=== PATIENT | male | born 1945 | race Caucasian/White ===

== ENCOUNTER → 2017-11-11 | Outpatient (CLI) | payer MEDICARE, OTHER ==
[~2017-11-11] MED LIST: BNZ10T PO; GLIP10TA13 PO; GLYB5TAB6 PO; INSU100V31 SQ; INSU100V5 SQ; INSU100V6 SQ; METF-380 PO; MULT-301 PO; OXYC-12 PO; PGLT30T PO
--- NOTE | 2017-11-11 08:20 | Diagnostic Imaging Report ---
EXAMINATION: Magnetic resonance imaging of the left shoulder without contrast. DATE: November 11, 2017. COMPARISON: None. INDICATION: 72-year-old male, left shoulder pain. TECHNIQUE: Magnetic Resonance Imaging sequences were performed of the shoulder without contrast. FINDINGS: ROTATOR CUFF, LIGAMENTS, TENDONS, AND MUSCLES: There is a massive rotator cuff tendon tear with full thickness and full width tears of the supraspinatus, infraspinatus, and subscapularis tendons. There is tendinopathy of the teres minor. There is severe fatty atrophy of the supraspinatus, infraspinatus, and subscapularis muscles. There is low-level edema within portions of the teres minor muscle which potentially could reflect low-grade muscle strain. LONG HEAD OF BICEPS: The long head of biceps tendon is not visualized in its intra-articular segment or within the bicipital groove. The proximal long head of biceps tendon is likely torn and retracted below the level of the bicipital groove. GLENOHUMERAL JOINT: The humeral head is superiorly subluxed and directly abuts the undersurface of the acromion with associated bone remodeling. There is irregularity of the length of the posterior labrum which is most likely torn. The anterior labrum is grossly intact. There is no identified paralabral cyst. There is mild glenohumeral cartilage thinning. There is a trace glenohumeral joint effusion. There is no prominent synovitis or identified intra-articular body. ACROMIOCLAVICULAR JOINT: The acromioclavicular joint is normally aligned. The coracoclavicular and coracoacromial ligaments are intact. There are mild acromioclavicular degenerative changes with a mildly bulbous lateral clavicle. There is a small acromioclavicular joint effusion. BONE: There is no os acromiale. There is no acute fracture, bone contusion, or evidence of osteonecrosis. There are subcortical cystic changes in the superior humeral head underlying the teres minor tendon insertion. BURSAE AND SOFT TISSUES: There is a small amount of fluid within the subacromial and subdeltoid bursa compatible with the full-thickness rotator cuff tendon tears, bursitis, and/or recent injection. IMPRESSION: 1. Massive rotator cuff tendon tear with full thickness and full width tears of supraspinatus, infraspinatus, and subscapularis. There is severe fatty atrophy of all 3 muscles. Teres minor tendinopathy with low level edema portions of the teres minor muscle which may potentially reflect low-grade muscle strain. 2. Mild acromioclavicular degenerative changes with mildly bulbous lateral clavicle. A small acromioclavicular joint effusion. 3. Superiorly subluxed humeral head directly abutting undersurface of the acromion with associated mild bone remodeling. Mild glenohumeral osteoarthritis with probable posterior labral tear. 4. No acute fracture, bone contusion, or evidence of osteonecrosis. Dictated by: Dictated on workstation # [id number]
== END ==
LOC: RAD 06:58
PROVIDERS: ATTEND Nurse Practitioner
DX: M75.122 Complete rotator cuff tear or rupture of left shoulder, not specified as traumatic (principal); M85.512 Aneurysmal bone cyst, left shoulder; M19.012 Primary osteoarthritis, left shoulder; S43.002A Unspecified subluxation of left shoulder joint, initial encounter
CPT/HCPCS: 73221

== ENCOUNTER 2019-01-23 06:29 | Outpatient (CLI) | payer MEDICARE, OTHER ==
[~2019-01-23] VITALS: Ht 177.8 cm; Wt 106.8 kg
[2019-01-23] MEDS ORDERED: METF-399 PO (10:56)
[2019-01-23] MEDS ORDERED: CHOL200059 PO (10:56)
[2019-01-23] MEDS ORDERED: BENA10TA9 PO (10:56)
[2019-01-23] MEDS ORDERED: PIOG30TA71 PO (10:56)
[2019-01-23] MEDS ORDERED: TEST100V3 IM (10:56)
[2019-01-23] MEDS ORDERED: UBID100C44 PO (10:56)
[2019-01-23] MEDS ORDERED: MULT-974 PO (10:56)
[2019-01-23] MEDS ORDERED: GBPN600T PO (10:56)
== END 2019-01-23 10:48 | disposition home or self-care (01) ==
LOC: PREOP 06:29
PROVIDERS: ATTEND Surgery
DX: Z01.818 Encounter for other preprocedural examination (principal)

== ENCOUNTER 2019-01-30 10:39 | Day surgery (SDC) | payer MEDICARE, OTHER ==
[~2019-01-30] VITALS: Ht 177.8 cm; Wt 106.8 kg
[2019-01-30] VITALS (7 sets, daily range): BP systolic 146–176; BP diastolic 67–104
[~2019-01-30 10:39] MED LIST changes: +BENA10TA9 PO; +CHOL200059 PO; +GBPN600T PO; +METF-399 PO; +MULT-974 PO; +PIOG30TA71 PO; +TEST100V3 IM; +UBID100C44 PO
[2019-01-30] MEDS ORDERED: LACTATED RINGERS 1,000 ML IV STA (10:47)
[2019-01-30] MEDS ORDERED: LACTATED RINGERS 1,000 ML IV ONE (10:48)
[2019-01-30] MEDS ORDERED: ceFAZolin 2 GM IV Premixed 50 ML IV ONE (11:00)
[2019-01-30] MEDS ORDERED: MIDAZOLAM 5 MG/5 ML (VERSED) VIAL IV PRN (11:00)
[2019-01-30] MEDS ORDERED: fentaNYL INJECTION 100 MCG/2 ML AMP IVP ONE (11:00)
[2019-01-30] MEDS ORDERED: PROPOFOL INJECTION 50 ML IV ONE ×2 (11:14→11:49)
[2019-01-30] MEDS ORDERED: MIDAZOLAM 2 MG/2 ML (VERSED) VIAL ONE (11:14)
[2019-01-30] MEDS ORDERED: nugenix (11:32)
--- NOTE | 2019-01-30 15:05 | Anesthesia-General Post-Op ---
MAC Patient Condition Mental Status/LOC: Same as Preop Cardiovascular: Satisfactory Nausea/Vomiting: Absent Respiratory: Satisfactory Pain: Controlled Complications: Absent Post Op Complications Complications None Follow Up Care/Instructions Patient Instructions None needed. Anesthesiology Discharge Order Discharge Order Patient is doing well, no complaints, stable vital signs, no apparent adverse anesthesia problems. No complications reported per nursing. ESTHELA TYLER CRNA Jan 30, 2019 15:05 POS
--- NOTE | 2019-01-30 20:21 | Progress Note-Post Operative ---
Post-Operative Progess Note Surgeon (s)/Forest Engineer (s) Surgeon AIDE MAHONEY DO Forest Engineer: na Pre-Operative Diagnosis history polyps Post-Operative Diagnosis hepatic flexure polyp Procedure & Operative Findings Date of Procedure 01/30/19 Procedure Performed/Findings colonoscopy c hot bx polypectomy and carlito inking. Anesthesia Type per accounting/finance tutor Estimated Blood Loss Estimated blood loss (mL): none Specimens/Packing Specimens Removed hepatic flexure polyp AIDE MAHONEY DO Jan 30, 2019 20:21 POS
--- NOTE | 2019-01-31 04:46 | OPERATIVE REPORT ---
DATE OF SERVICE: 01/30/2019 PREOPERATIVE DIAGNOSIS: History of polyps. POSTOPERATIVE DIAGNOSIS: Hepatic flexure polyp. PROCEDURE: Colonoscopy with hot biopsy polypectomy and Makenna inking of the hepatic flexure polyp. SURGEON: Aide Velasco DO ANESTHESIA: Per LAB DIRECTOR. ESTIMATED BLOOD LOSS: None. COMPLICATIONS: None. INDICATIONS: The patient is a 73-year-old male with history of polyps. He understands risks and benefits of procedure and wished to proceed with procedure. Consent was signed in the chart. DESCRIPTION OF PROCEDURE: The patient was taken to the endoscopy suite, placed in left lateral recumbent position. Timeout was performed. Digital rectal exam was performed. There were no palpable polyps, masses or ulcerations. Scope was inserted in the rectum, advanced all the way to cecum with minimal difficulty. Prep was adequate. There were no polyps, masses or ulcerations within the cecum. The scope was then continuously retracted back. No polyps, masses or ulcerations within the ascending colon. At the hepatic flexure, a larger polyp was present, which hot biopsies were obtained and also fulgurated. The scope was then slowly retracted back just distal to this area, the Makenna inking in one spot. Therefore, a further tattoo was placed to help improve visualization for later which two different spots, 1 mL of Makenna ink in two different locations was injected. Scope was then continuously retracted back. There were no other polyps, masses or ulcerations within the remainder of the transverse, descending and sigmoid colon. Once in the rectum, scope was retroflexed noting no other pathology. Scope was returned to its normal position, slowly withdrawn until completely removed. RECOMMENDATIONS: The patient to await biopsy results and see whether this was a larger polyp and maybe one that has returned previously. this was being larger, we could discuss colon resection. To avoid this, if not, I would recommend repeat colonoscopy in the next 3 to 6 months to reevaluate and to see if it is not eradicated by that time, we would recommend colon resection. We will discuss outpatient when pathology results are back. Job ID: [id number] DocumentID: [id number] Dictated Date: 01/30/2019 20:25:36 Internet Site Designer Date: 01/31/2019 02:09:04 Dictated By: AIDE VELASCO DO
== END 2019-01-30 12:45 | disposition home or self-care (01) ==
LOC: ENDO 10:39
PROVIDERS: ATTEND Surgery
DX: Z12.11 Encounter for screening for malignant neoplasm of colon (principal); D12.3 Benign neoplasm of transverse colon; Z88.0 Allergy status to penicillin; Z86.010 Personal history of colon polyps; Z82.49 Family history of ischemic heart disease and other diseases of the circulatory system; Z83.3 Family history of diabetes mellitus; Z80.3 Family history of malignant neoplasm of breast; E11.9 Type 2 diabetes mellitus without complications; I10 Essential (primary) hypertension; Z80.42 Family history of malignant neoplasm of prostate; Z80.43 Family history of malignant neoplasm of testis
CPT/HCPCS: 82962; 88305

== ENCOUNTER 2019-05-16 05:36 | Outpatient (CLI) | payer MEDICARE, OTHER ==
[~2019-05-16] VITALS: Ht 177 cm; Wt 110.9 kg
[~2019-05-16 05:36] MED LIST changes: +nugenix
== END 2019-05-16 15:18 | disposition home or self-care (01) ==
LOC: PREOP 05:36
PROVIDERS: ATTEND Surgery
DX: Z01.818 Encounter for other preprocedural examination (principal)

== ENCOUNTER 2019-08-30 19:12 | Inpatient (IN) | payer MEDICARE, OTHER ==
[~2019-08-30] VITALS: Ht 177.8 cm; Wt 103.9 kg
[2019-08-30] VITALS (7 sets, daily range): BP systolic 110–131; BP diastolic 36–73
[~2019-08-30 19:12] MED LIST changes: +BENA10TA66 PO; -BENA10TA9 PO
--- NOTE | 2019-08-30 19:26 | ED Chest Pain ---
General Stated Complaint: CHEST PAIN Source: patient Exam Limitations: no limitations History of Present Illness Date Seen by Provider: August 30, 2019 Time Seen by Provider: 19:24 Initial Comments To ER with upper chest pressure that started at about 4 PM today while at rest. This awakened him from sleep a few nights ago, he got up and sat in his recliner and the pain went away about 30 minutes later. He believes it may just be heartburn. Regardless, he describes the pain as a pressure sensation, rates it at 6 or 7 out of 10. He denies shortness of breath or nausea. He is diabetic insulin-dependent. He has no personal history of heart disease. No high cholesterol. Nonsmoker. Timing/Duration: constant Severity/Quality: moderate Radiation: no radiation Activities at Onset: none ASA po EDGE KITTER: No NTG SL EDGE KITTER: No Allergies and Home Medications Allergies Coded Allergies: Penicillins (Unverified Allergy, Unknown, FROM CHILDHOOD, 05/16/19) Home Medications Benazepril HCl 10 Mg Tablet, 10 MG PO DAILY, (Reported) Cholecalciferol (Vitamin D3) 2,000 Unit Tablet, 2,000 UNIT PO DAILY, (Reported) Gabapentin 600 Mg Tablet, 600 MG PO TID, (Reported) Glipizide 10 Mg Tablet, 10 MG PO DAILY, (Reported) Insulin Determir 1,000 Units/10 Ml Soln, 80 UNITS SQ BID, (Reported) Insulin Regular, Human 100 Unit/1 Ml Vial, 20 UNIT SQ BID, (Reported) Metformin HCl 1,000 Mg Tablet, 1,000 MG PO BID, (Reported) Multivitamin 1 Each Tablet, 1 EACH PO DAILY, (Reported) Pioglitazone HCl 30 Mg Tablet, 30 MG PO DAILY, (Reported) Testosterone Cypionate 100 Mg/1 Ml Vial, 100 MG IM MONTHLY, (Reported) Patient Home Medication List Home Medication List Reviewed: Yes Review of Systems Review of Systems Constitutional: see HPI EENTM: No Symptoms Reported Respiratory: See HPI Cardiovascular: See HPI, Chest Pain Gastrointestinal: No Symptoms Reported; Denies Abdominal Pain, Denies Nausea Genitourinary: No Symptoms Reported Musculoskeletal: no symptoms reported Skin: no symptoms reported Endocrine: No Symptoms Reported Hematologic/Lymphatic: No Symptoms Reported Past Umesfow-Ypksqb-Calysb Hx Patient Social History 2nd Hand Smoke Exposure: No Recent Foreign Travel: No Contact w/Someone Who Travel: No Recent Hopitalizations: No Immunizations Up To Date Date of Pneumonia Vaccine: Mar 19, 2011 Date of Influenza Vaccine: Jan 09, 2019 Seasonal Allergies Seasonal Allergies: Yes Past Medical History Surgeries: Yes (left TKR, HERNIA REPAIR, KNEE SCOPE, TURP) Respiratory: No Currently Using CPAP: No Currently Using BIPAP: No Cardiac: Yes Hypertension Neurological: No Reproductive Disorders: No Sexually Transmitted Disease: No HIV/AIDS: No Genitourinary: No Gastrointestinal: No Polyps Musculoskeletal: No Endocrine: Yes Diabetes, Insulin dep HEENT: Yes (GLASSES) Loss of Vision: Denies Hearing Impairment: Hard of Hearing, Bilateral Hearing Aide Cancer: No Psychosocial: No Integumentary: No Blood Disorders: No Adverse Reaction/Blood Tranf: No (N/A) Physical Exam Vital Signs Vital Signs - First Documented 08/30/19 19:45 Temp 37.2 Pulse 90 Resp 19 B/P (MAP) 189/99 (129) Pulse Ox 99 O2 Delivery Room Air Capillary Refill : Height, Weight, BMI Height: 5'10.00" Weight: 241lbs. 6.0oz. 109.950672sn; 35.08 BMI Method: General Appearance: No Apparent Distress, WD/WN HEENT: PERRL/EOMI, TMs Normal Respiratory: Lungs Clear, Normal Breath Sounds, No Accessory Muscle Use, No Respiratory Distress Cardiovascular: Regular Rate, Rhythm, Normal Peripheral Pulses Gastrointestinal: Normal Bowel Sounds, Non Tender, Soft Neurologic/Psychiatric: Alert, Oriented x3 Skin: Normal Color, Warm/Dry Progress/Results/Core Measures Results/Orders Lab Results Laboratory Tests Test 08/30/19 19:59 Range/Units White Blood Count 11.1 H 4.3-11.0 10^3/uL Red Blood Count 4.84 4.35-5.85 10^6/uL Hemoglobin 14.6 13.3-17.7 G/DL Hematocrit 44 40-54 % Mean Corpuscular Volume 90 80-99 FL Mean Corpuscular Hemoglobin 30 25-34 PG Mean Corpuscular Hemoglobin Concent 33 32-36 G/DL Red Cell Distribution Width 15.2 H 10.0-14.5 % Platelet Count 230 130-400 10^3/uL Mean Platelet Volume 10.8 H 7.4-10.4 FL Neutrophils (%) (Auto) 49 42-75 % Lymphocytes (%) (Auto) 25 12-44 % Monocytes (%) (Auto) 10 0-12 % Eosinophils (%) (Auto) 16 H 0-10 % Basophils (%) (Auto) 0 0-10 % Neutrophils # (Auto) 5.4 1.8-7.8 X 10^3 Lymphocytes # (Auto) 2.7 1.0-4.0 X 10^3 Monocytes # (Auto) 1.1 H 0.0-1.0 X 10^3 Eosinophils # (Auto) 1.8 H 0.0-0.3 10^3/uL Basophils # (Auto) 0.0 0.0-0.1 10^3/uL Neutrophils % (Manual) 53 % Lymphocytes % (Manual) 28 % Monocytes % (Manual) 8 % Eosinophils % (Manual) 11 % Blood Morphology Comment NORMAL Prothrombin Time 14.0 12.2-14.7 SEC INR Comment 1.0 0.8-1.4 Activated Partial Thromboplast Time 31 24-35 SEC Sodium Level 140 135-145 MMOL/L Potassium Level 4.0 3.6-5.0 MMOL/L Chloride Level 109 H 98-107 MMOL/L Carbon Dioxide Level 19 L 21-32 MMOL/L Anion Gap 12 5-14 MMOL/L Blood Urea Nitrogen 17 7-18 MG/DL Creatinine 0.96 0.60-1.30 MG/DL Estimat Glomerular Filtration Rate > 60 BUN/Creatinine Ratio 18 Glucose Level 87 70-105 MG/DL Calcium Level 9.7 8.5-10.1 MG/DL Corrected Calcium 9.6 8.5-10.1 MG/DL Magnesium Level 1.8 1.6-2.4 MG/DL Total Bilirubin 0.3 0.1-1.0 MG/DL Aspartate Amino Transf (AST/SGOT) 24 5-34 U/L Alanine Aminotransferase (ALT/SGPT) 26 0-55 U/L Alkaline Phosphatase 79 40-136 U/L Myoglobin 102.6 H 10.0-92.0 NG/ML Troponin I 0.072 H <0.028 NG/ML Total Protein 7.0 6.4-8.2 GM/DL Albumin 4.1 3.2-4.5 GM/DL Lipase 27 8-78 U/L My Orders Orders - STARR ZABALA FRONT LINE LEADER Cbc With Automated Diff (08/30/19 19:16) Magnesium (08/30/19 19:16) Chest 1 View, Ap/Pa Only (08/30/19 19:16) Ekg Tracing (08/30/19 19:16) Comprehensive Metabolic Panel (08/30/19 19:16) Myoglobin Serum (08/30/19 19:16) Protime With Inr (08/30/19 19:16) Partial Thromboplastin Time (08/30/19 19:16) O2 (08/30/19 19:16) Monitor-Rhythm Ecg Trace Only (08/30/19 19:16) Lipid Panel (08/31/19 06:00) Ed Iv/Invasive Line Start (08/30/19 19:16) Lipase (08/30/19 19:16) BNP (08/30/19 19:16) Troponin I (08/30/19 19:16) Aspirin Chewable Tablet (Baby Aspirin Ch (08/30/19 19:30) Nitroglycerin 0.4 Mg Btl 25's (Nitrostat (08/30/19 19:30) Manual Differential (08/30/19 19:59) Ticagrelor Tablet (Brilinta Tablet) (08/30/19 21:00) Enoxaparin Injection (Lovenox Injection) (08/30/19 21:00) Clonidine Tablet (Catapres Tablet) (08/30/19 21:00) Medications Given in ED Current Medications Medications Dose Ordered Sig/Job Route Start Time Stop Time Status Last Admin Dose Admin Aspirin 324 mg ONCE ONCE PO 08/30/19 19:30 08/30/19 19:31 DC 08/30/19 19:35 324 MG Nitroglycerin 1 TAB Q 5 MIN X 3 NEEDED PRN SL 08/30/19 19:30 08/30/19 19:35 0.4 MG Vital Signs/I&O 08/30/19 08/30/19 19:45 20:03 Temp 37.2 Pulse 90 Resp 19 B/P (MAP) 189/99 (129) Pulse Ox 99 O2 Delivery Room Air Room Air Diagnostic Imaging Diagonstic Imaging: Xray Plain Films/CT/US/NM/MRI: chest Comments NAME: [facility] REC#: [id number] PT STATUS: REG ER : 1945 PHYSICIAN: STARR ZABALA APRN ADMIT DATE: 08/30/19/ER Draft Date of Exam:08/30/19 CHEST 1 VIEW, AP/PA ONLY INDICATION: Chest pain. EXAMINATION: Single view of the chest was obtained. FINDINGS: The lungs are clear. The heart size and mesentery are normal. No failure, effusion or pneumothorax. A 7 mm nodule projecting over the left lower lung is stable from the comparison of 2011 and confirmed benign. IMPRESSION: Chronic benign subcentimeter left lung nodule, no change from priors. No acute finding. Dictated on workstation # [id number] Dict: 08/30/192009 Trans: 08/30/192014 [id number] Interpreted by: JOSE GAONA Electronically signed by: Departure Communication (Admissions) Time/Spoke to Admitting Phy: 20:[address] Myers and Dr. Boone. Will admit. He is pain-free at this time. He did have an episode of recurrence of chest pain when he got up to walk to the bathroom, 1 sublingual nitroglycerin nearly immediately resolved this. He has been hypertensive, after 2 sublingual nitroglycerin his blood pressure is 145/101, on arrival he was about 190 systolic. Given a dose of clonidine here, ordered Brilinta and 1 dose of Lovenox after discussing with Dr. Boone. 2-D echo in the morning. Impression Primary Impression: Chest pain Qualified Codes: R07.9 - Chest pain, unspecified Disposition: ADMITTED INPATIENT Condition: Stable Admissions Decision to Admit Reason: Admit from ER (General) Decision to Admit/Date: August 30, 2019 Time/Decision to Admit Time: 20:51 Departure-Patient Inst. Referrals: ANGIE MONSON DO (PCP) Primary Care Physician SARAVANAN ROMERO APRN (Family) Primary Care Physician STARR ZBAALA APRN August 30, 2019 19:26
[2019-08-30] MEDS ORDERED: NITROGLYCERIN 0.4 MG SL TABS BTL 25'S SL PRN ×2 (19:30→21:45)
[2019-08-30] MEDS ORDERED: ASPIRIN 81 MG CHEW (CHILDREN'S ASA) PO ONE (19:30)
[2019-08-30 20:08] LABS: BASOPHILS % (AUTO) 0 % (0-10); EOSINOPHILS # (AUTO) 1.8 10^3/uL (0.0-0.3); EOSINOPHILS % (AUTO) 16 % (0-10); HEMATOCRIT 44 % (40-54); HEMOGLOBIN 14.6 G/DL (13.3-17.7); LYMPHOCYTES # (AUTO) 2.7 X 10^3 (1.0-4.0); LYMPHOCYTES % (AUTO) 25 % (12-44); MEAN CORPUSCULAR HEMOGLOBIN 30 PG (25-34); MEAN CORPUSCULAR HGB CONC 33 G/DL (32-36); MEAN CORPUSCULAR VOLUME 90 FL (80-99); MEAN PLATELET VOLUME 10.8 FL (7.4-10.4); MONOCYTES # (AUTO) 1.1 X 10^3 (0.0-1.0); MONOCYTES % (AUTO) 10 % (0-12); NEUTROPHILS # (AUTO) 5.4 X 10^3 (1.8-7.8); NEUTROPHILS % (AUTO) 49 % (42-75); PLATELET COUNT 230 10^3/uL (130-400); RED CELL DISTRIBUTION WIDTH 15.2 % (10.0-14.5); WHITE BLOOD COUNT 11.1 10^3/uL (4.3-11.0)
--- NOTE | 2019-08-30 20:16 | Diagnostic Imaging Report ---
INDICATION: Chest pain. EXAMINATION: Single view of the chest was obtained. FINDINGS: The lungs are clear. The heart size and mesentery are normal. No failure, effusion or pneumothorax. A 7 mm nodule projecting over the left lower lung is stable from the comparison of 2012 and confirmed benign. IMPRESSION: Chronic benign subcentimeter left lung nodule, no change from priors. No acute finding. Dictated by: Dictated on workstation # [id number]
[2019-08-30 20:19] LABS: ALBUMIN 4.1 GM/DL (3.2-4.5); CHLORIDE 109 MMOL/L (98-107); SODIUM 140 MMOL/L (135-145)
[2019-08-30 20:21] LABS: CALCIUM 9.7 MG/DL (8.5-10.1)
[2019-08-30 20:22] LABS: GLUCOSE 87 MG/DL (70-105)
[2019-08-30 20:23] LABS: CARBON DIOXIDE 19 MMOL/L (21-32)
[2019-08-30 20:24] LABS: BILIRUBIN,TOTAL 0.3 MG/DL (0.1-1.0)
[2019-08-30 20:25] LABS: ALKALINE PHOSPHATASE 79 U/L (40-136); CREATININE SERUM 0.96 MG/DL (0.60-1.30); GFR ESTIMATED > 60
[2019-08-30 20:26] LABS: BUN/CREATININE RATIO 18
[2019-08-30 20:28] LABS: ALANINE AMINOTRANSFERASE 26 U/L (0-55)
[2019-08-30 20:29] LABS: MAGNESIUM 1.8 MG/DL (1.6-2.4)
[2019-08-30 20:30] LABS: LIPASE 27 U/L (8-78)
[2019-08-30 20:39] LABS: EOSINOPHILS % (MANUAL) 11 %; LYMPHOCYTES % (MANUAL) 28 %; MONOCYTES % (MANUAL) 8 %; NEUTROPHILS % (MANUAL) 53 %; RBC MORPH NORMAL
[2019-08-30] MEDS ORDERED: cloNIDine 0.1 MG (CATAPRES) TAB PO ONE (21:00)
[2019-08-30] MEDS ORDERED: ENOXAPARIN 60 MG/0.6 ML (LOVENOX) SYR SC ONE (21:00)
[2019-08-30] MEDS ORDERED: TICAGRELOR 90 MG TABLET (BRILINTA) PO ONE (21:00)
[2019-08-30] MEDS ORDERED: morphine INJ 4 MG/ML 1 ML (VIAL/SYRINGE) IV PRN (21:45)
[2019-08-30] MEDS ORDERED: CATHETER FLUSH 10 ML SYR IV PRN (21:45)
[2019-08-30] MEDS ORDERED: ONDANSETRON 4 MG/2 ML (SDV) Z0FRAN IV PRN (21:45)
--- OUTSIDE RECORDS SUMMARY | 2019-08-30 22:00 | XMS REPORT | Continuity of Care Document ---
Author Author Waldo Salazar Organization [facility] Ruth haile Address [address] [place] [address] Phone Unavailable Care Team Providers Care Enterprise Software Engineer Name Role Phone Hieu Salazar MD PP Unavailable Hieu Salazar MD RP Unavailable Payers Payer name Insurance type Covered democrat ID Authorization(s ) Part B WPS SM MB [id number] Generic Payer CI [id number] Problems Condition Effective Dates (start - stop) Clinical Status Unknown Family History Family Member Diagnosis Age At Onset Unknown Social History Type Description Quantity Date Captured Unknown Allergies, Adverse Reactions, Alerts Substance Reaction Severity Status Substance Type Unknown Medications Medication Instructions Dosage Effective Dates (start - stop) Sta tus Comments Drug Treatment Unknown Immunizations Vaccine Date Status Comments Unknown Results Test Name Date and Time Measure Units Reference Range Abnormal F lag Comments Unknown Vital Signs Date / Time: Height Weight BMI Pulse Rate Blood Pressure Temperatu re Respiratory Rate Body Surface Area Head Circumference BMI percentile Unknown Procedures Procedure Date Unknown Encounters Encounter Description Practice Location Reason(s) For Visit Diagnose s Date Provider [facility] [place]ile, [address] [place], [place], [address] [place] [address] [facility] Hagen. [address], [address], [place], [address], [place]. tel:[phone] Advance Directives Directive Yes / No Effective Date File Name Unknown
--- OUTSIDE RECORDS SUMMARY | 2019-08-30 22:00 | XMS REPORT | Summary of Care ---
Author Author [facility] Organization [facility] Address Unknown Phone Unavailable Care Team Providers Care Purchasing Buyer Name Role Phone ANGIE MONSON DO PCP Encounter [facility] [id number] Date(s): 01/10/16 - 05/06/[address] [address] Final: Spinal stenosis, lumbar region Final: Connective tissue and disc stenosis of intervertebral foramina of lumbar region Final: Lordosis, unspecified, lumbar region Final: Radiculopathy, lumbar region Final: Intervertebral disc disorders with radiculopathy, lumbar region Discharge Disposition: Home - 01 Attending Physician: AARON WHEAT MD Admitting Physician: AARON WHEAT MD Referring Physician: AARON WHEAT MD Vital Signs No data available for this section Problem List Condition Effective Dates Status Health Status Informan t Lumbar spinal Active stenosis(Confirmed) Allergies, Adverse Reactions, Alerts Substance Reaction Severity Status penicillin Active Medications gabapentin 600 mg, PO, TID (3 times a day), 0 Refill(s) Start Date: 01/10/16 Status: Ordered [place] 7.5/325 1 TAB, PO, Q6H (Every 6 hours), PRN Moderate Pain, 0 Refill(s) Start Date: 01/10/16 Status: Ordered Results No data available for this section Immunizations No data available for this section Procedures Procedure Date Related Diagnosis Body Site Inj:Lumbar Epi Steroid1 03/06/16 Inj:Lumbar Epi Steroid2 02/03/16 Inj:Lumbar Epi Steroid3 01/10/16 Pain Management Initial Visit4 01/10/16 1auto-populated from documented surgical case 2auto-populated from documented surgical case 3auto-populated from documented surgical case 4auto-populated from documented surgical case Social History No data available for this section Functional Status No data available for this section Assessment and Plan No data available for this section Hospital Discharge Instructions No data available for this section
--- OUTSIDE RECORDS SUMMARY | 2019-08-30 22:00 | XMS REPORT | Summary of Care ---
Author Author [facility] Address Unknown Phone Unavailable Care Team Providers Care Lease Examiner Name Role Phone ANGIE MONSON DO PCP Encounter [facility] [id number] Date(s): 04/20/19 - 07/15/19 [facility] [address] [address] Encounter Diagnosis Radiculopathy, lumbar region (Final) - Postlaminectomy syndrome, not elsewhere classified (Final) - Spondylosis without myelopathy or radiculopathy, lumbar region (Final) - Other specified dorsopathies, lumbar region (Final) - Radiculopathy, lumbosacral region (Final) - Discharge Disposition: Home - 01 Attending Physician: ANGIE MONSON DO Admitting Physician: ANGIE MONSON DO Referring Physician: ANGIE MONSON DO Vital Signs No data available for this section Problem List Condition Effective Dates Status Health Status Informan t Lumbar spinal Active stenosis(Confirmed) Allergies, Adverse Reactions, Alerts Substance Reaction Severity Status penicillin Active Medications No Known Medications Results No data available for this section Immunizations No data available for this section Procedures Procedure Date Related Diagnosis Body Site Status Consult Followup Visit1 05/15/19 Completed Inj:Lumbar Epi Steroid (Bilateral)2 04/20/19 Co mpleted 1auto-populated from documented surgical case 2auto-populated from documented surgical case Social History No data available for this section Functional Status No data available for this section Assessment and Plan No data available for this section Hospital Discharge Instructions No data available for this section
--- OUTSIDE RECORDS SUMMARY | 2019-08-30 22:00 | XMS REPORT | Summary of Care ---
Author Author [facility] Organization [facility] Address Unknown Phone Unavailable Care Team Providers Care Park Interpretive Ranger Name Role Phone ANGIE MONSON DO PCP Encounter [facility] [id number] Date(s): 10/30/16 - 12/30/16 [facility] [address] [place], [place] [address] Final: Postlaminectomy syndrome, not elsewhere classified Final: Spinal stenosis, lumbar region Final: Other intervertebral disc displacement, lumbar region Discharge Disposition: Home - 01 [...] Related Diagnosis Body Site Inj:Lumbar Epi Steroid1 10/30/16 1auto-populated from documented surgical case Social History No data available for this section Functional Status No data available for this section Assessment and Plan No data available for this section Hospital Discharge Instructions No data available for this section
--- OUTSIDE RECORDS SUMMARY | 2019-08-30 22:00 | XMS REPORT | Summary of Care ---
Author Author [facility] Organization [facility] Address Unknown Phone Unavailable Encounter [facility] [id number] Date(s): 12/11/15 - 12/11/15 [facility] [address] [address] Discharge Disposition: Home - Attending Physician: AARON WHEAT MD Admitting Physician: AARON WHEAT MD Referring Physician: AARON WHEAT MD Vital Signs No data available for this section Problem List Condition Effective Dates Status Health Status Informan t Lumbar spinal Active stenosis(Confirmed) Allergies, Adverse Reactions, Alerts Substance Reaction Severity Status penicillin Active Medications No data available for this section Results CHEMISTRY Most recent to 1 oldest [Reference Range]: Creatinine POC 1.2 mg/dL 1 [0.5-1.5 mg/dL] (12/11/15 4:10 PM) 1Result Comment: Meter ID: [id number] Log Skidder: [id number] CASSIDA ENEDINA Immunizations No data available for this section Procedures No data available for this section Social History No data available for this section Functional Status No data available for this section Assessment and Plan No data available for this section Hospital Discharge Instructions No data available for this section
--- OUTSIDE RECORDS SUMMARY | 2019-08-30 22:00 | XMS REPORT | Summary of Care ---
Author Author [facility] Organization [facility] Address Unknown Phone Unavailable Care Team Providers Care Linoleum Printer Name Role Phone ANGIE MONSON DO PCP Encounter [facility] [id number] Date(s): 01/10/16 - 05/06/[address] [address] Final: Spinal stenosis, lumbar region Final: Connective [...] 0 Refill(s) Start Date: 01/10/16 Status: Ordered [place] 7.5/325 1 TAB, PO, Q6H (Every 6 [...]
--- OUTSIDE RECORDS SUMMARY | 2019-08-30 22:00 | XMS REPORT | Summary of Care ---
Author Author [facility] Organization [facility] Address Unknown Phone Unavailable Care Team Providers Care Product Operations Associate Name Role Phone ANGIE MONSON DO PCP Encounter [facility] [id number] Date(s): 10/30/16 - 12/30/[address] [facility] [address] [place], [place] [address] Final: Postlaminectomy syndrome, not elsewhere classified Final: [...]
--- OUTSIDE RECORDS SUMMARY | 2019-08-30 22:00 | XMS REPORT | Summary of Care ---
Author Author [facility] er Organization [facility] er Address Unknown Phone Unavailable Care Team Providers Care Net Finisher Name Role Phone ANGIE MONSON DO PCP Encounter [facility] [id number] Date(s): 01/10/16 - 05/06/[address] [address] Final: Spinal stenosis, lumbar region Final: [...] 0 Refill(s) Start Date: 01/10/16 Status: Ordered [place] 7.5/325 1 TAB, PO, Q6H (Every 6 [...]
--- OUTSIDE RECORDS SUMMARY | 2019-08-30 22:00 | XMS REPORT | Summary of Care ---
Author Author [facility] Organization [facility] Address Unknown Phone Unavailable Care Team Providers Care Mesh Man Name Role Phone ANGIE MONSON DO PCP Encounter [facility] [id number] Date(s): 10/30/16 - 12/30/16 [facility] [address] [place], [place] [address] Final: Postlaminectomy syndrome, not elsewhere classified [...]
--- OUTSIDE RECORDS SUMMARY | 2019-08-30 22:00 | XMS REPORT | Summary of Care ---
Author Author [facility] er Organization [facility] er Address Unknown Phone Unavailable Care Team Providers Care Perfume Maker Name Role Phone ANGIE MONSON DO PCP Encounter [facility] [id number] Date(s): 01/10/16 - 05/06/[address] [address] Final: Spinal stenosis, lumbar region Final: [...] 0 Refill(s) Start Date: 01/10/16 Status: Ordered [place] 7.5/325 1 TAB, PO, Q6H (Every 6 [...]
--- OUTSIDE RECORDS SUMMARY | 2019-08-30 22:00 | XMS REPORT | Summary of Care ---
Author Author [facility] er Organization [facility] er Address Unknown Phone Unavailable Encounter [facility] JUDI Vaca [id number] Date(s): 09/03/15 - 09/05/[address] [facility] [place] [address] [address] Discharge Diagnosis: Lumbar spinal stenosis Discharge Disposition: Home - Attending Physician: AARON WHEAT MD Admitting Physician: AARON WHEAT MD Referring Physician: AARON WHEAT MD Vital Signs Most recent to 1 oldest [Reference Range]: Vital Signs Routine Assessment Status/Type (09/03/15 3:05 PM) Temperature 97.6 DegF [96.8-99.7 DegF] (09/05/15 6:53 AM) Temp Method Oral (09/05/15 6:53 AM) Heart Rate 110 bpm (09/05/15 6:54 AM) Pulse Equipment SPO2 (09/05/15 6:54 AM) Respiratory Rate 17 br/min [14-20 br/min] (09/04/15 7:00 PM) Blood Pressure 148/82 mmHg [70-180/50-90 mmHg] (09/05/15 6:53 AM) NIBP MAP 99 mmHg (09/05/15 6:53 AM) NIBP MAP Calc 111 (09/03/15 3:05 PM) NIBP Alarms set and Yes on (09/03/15 12:15 PM) BP Location Arm, left (09/04/15 6:52 AM) BP Cuff Size Large (09/03/15 12:15 PM) Heart Rhythm Sinus/atrial rhythm Interpretation (09/03/15 12:45 PM) Vital Signs Status Vital signs taken (09/03/15 12:15 PM) Problem List Condition Effective Dates Status Health Status Informan t Lumbar spinal Active stenosis(Confirmed) Allergies, Adverse Reactions, Alerts Substance Reaction Severity Status penicillin Active Medications Aleve 220 mg, PO, Q12H (Every 12 hours), PRN as needed for pain, 0 Refill(s), Indicati on: Mild Pain Start Date: 08/22/15 Status: Ordered benazepril 10 mg oral tablet 1 TAB, PO, Daily, 0 Refill(s), Indication: High Blood Pressure Start Date: 08/22/15 Status: Ordered Flexeril 10 mg oral tablet 1 TAB, PO, TID (3 times a day), PRN Muscle Spasms, # 42 TAB, 0 Refill(s), Indica tion: Muscle Spasms Start Date: 09/03/15 Stop Date: 09/17/15 Status: Ordered glipiZIDE 10 mg oral tablet 1 TAB, PO, Daily, 0 Refill(s), Indication: Diabetes Start Date: 08/22/15 Status: Ordered Levemir FlexPen 100 units/mL subcutaneous solution 80 UNITS, Subcut, QHS (At bedtime), 0 Refill(s), Indication: Diabetes Start Date: 08/22/15 Status: Ordered Levemir FlexPen 100 units/mL subcutaneous solution 70 UNITS, Subcut, Daily, 0 Refill(s), Indication: Diabetes Start Date: 08/22/15 Status: Ordered metFORMIN 1000 mg oral tablet 1 TAB, PO, BID (2 times a day), 0 Refill(s), Indication: Diabetes Start Date: 08/22/15 Status: Ordered multivitamin 1 TAB, PO, Daily, 0 Refill(s), Indication: Vitamin Supplement Start Date: 08/22/15 Status: Ordered [place] 7.5 mg-325 mg oral tablet 1 TAB, PO, Q4H (Every 4 hours), PRN as needed for pain, # 50 TAB, 0 Refill(s), I ndication: Moderate Pain Start Date: 09/03/15 Stop Date: 09/17/15 Status: Ordered NovoLOG insulin 20 Unit =, Subcut, ACBD (Before breakfast and dinner), 0 Refill(s), Indication: Diabetes Start Date: 08/22/15 Status: Ordered pioglitazone 30 mg oral tablet 1 TAB, PO, Daily, 0 Refill(s), Indication: Diabetes Start Date: 08/22/15 Status: Ordered Testosterone Cypionate 100 mg/mL intramuscular solution = 1 mL, IM, Q4WEEK (Every 4 weeks), 0 Refill(s), HRT, Indication: Other - See Sp ecial Instructions Special Instructions: HRT Start Date: 08/22/15 Status: Ordered Results CHEMISTRY Most recent to 1 oldest [Reference Range]: Sodium [136-145 138 mmol/L mmol/L] (09/03/15 3:59 PM) Potassium [3.5-5.1 5.5 mmol/L mmol/L] *HI* (09/03/15 3:59 PM) Chloride [98-107 100 mmol/L mmol/L] (09/03/15 3:59 PM) CO2 [22-29 mmol/L] 26 mmol/L (09/03/15 3:59 PM) AGAP [3-19 mmol/L] 12 mmol/L (09/03/15 3:59 PM) Glucose [70-100 229 mg/dL mg/dL] *HI* (09/03/15 3:59 PM) Glucose Level (POC) 117 mg/dL 2 [70-100 mg/dL] *HI* (09/05/15 11:17 AM) BUN [8-20 mg/dL] 22 mg/dL *HI* (09/03/15 3:59 PM) Creatinine [0.7-1.2 1.0 mg/dL mg/dL] (09/03/15 3:59 PM) Calcium [8.6-10.2 8.9 mg/dL mg/dL] (09/03/15 3:59 PM) Est CrCL (CG) 69.5 mL/min 1 (09/03/15 3:59 PM) GFR (CKD-EPI) 79.3 mL/min/1.73 m2 3 *NA* (09/03/15 3:59 PM) Hgb A1c [0.0-5.6 %] 8.4 % *HI* (09/03/15 3:59 PM) Estimated Average 194 mg/dL Glucose *NA* (09/03/15 3:59 PM) 1Result Comment: Estimated Creatinine Clearance calculated based on the Cockcroft-Gault formula. 2Result Comment: Meter ID: [id number] Weigh Machine Operator: [id number] SULMA STORM 3Result Comment: GFR calculated based on CKD-EPI Creatinine Equation (2009). Age(years) Average GFR 20-29 116 mL/min/1.73 m^2 30-39 107 mL/min/1.73 m^2 40-49 99 mL/min/1.73 m^2 50-59 93 mL/min/1.73 m^2 60-69 85 mL/min/1.73 m^2 70+ 75 mL/min/1.73 m^2 Acceptable GFR =>60 mL/min/1.73 m^2 Chronic Kidney Disease <60 mL/min/1.73 m^2 Kidney Failure <15 mL/min/1.73 m^2 Immunizations No data available for this section Procedures Procedure Date Related Diagnosis Body Site Spine Laminectomy Lumbar Decompressive Neuro1 6 1auto-populated from documented surgical case Social History No data available for this section Functional Status No data available for this section Assessment and Plan No data available for this section Hospital Discharge Instructions No data available for this section
--- OUTSIDE RECORDS SUMMARY | 2019-08-30 22:00 | XMS REPORT | Summary of Care ---
Author Author [facility] Organization [facility] Address Unknown Phone Unavailable Care Team Providers Care Wash Oil Pump Operator Helper Name Role Phone ANGIE MONSON DO PCP Encounter [facility] [id number] Date(s): 10/30/16 - 12/30/16 [facility] [address] [place], [place] [address] Final: Postlaminectomy syndrome, not elsewhere classified [...]
--- OUTSIDE RECORDS SUMMARY | 2019-08-30 22:00 | XMS REPORT | Summary of Care ---
Author Author [facility] Organization [facility] Address Unknown Phone Unavailable Care Team Providers Care Sports Physical Therapist Name Role Phone ANGIE MONSON DO PCP Encounter [facility] [id number] Date(s): 10/30/16 - 12/30/16 [facility] [address] [place], [place] [address] Final: Postlaminectomy syndrome, not elsewhere classified Final: [...]
--- OUTSIDE RECORDS SUMMARY | 2019-08-30 22:00 | XMS REPORT | Continuity of Care Document ---
Author Author Waldo Salazar Organization [facility] Giancarlo haile Address [address] [place] [address] Phone Unavailable Care Team Providers Care Veneer Clipper Name Role Phone Marie BEARDEN, Hieu PP Unavailable Hieu Salazar MD RP Unavailable Payers Payer name Insurance type Covered alliance party ID Authorization(s ) Part B WPS SM MB [id number] Generic Payer CI [id number] Problems Condition Effective Dates (start - stop) [...] Circumference BMI percentile Unknown Procedures Procedure Date TTE W/DOPPLER, COMPLETE Encounters Encounter Description Practice Location Reason(s) For Visit Diagnose s Date Provider [facility]icians Ruth haile, [address] [place], [address], [facility] Sep Marie Hagen. [address], [address], [place], [address], [place]. tel:[phone] Advance Directives Directive Yes / No Effective Date File Name Unknown
--- OUTSIDE RECORDS SUMMARY | 2019-08-30 22:00 | XMS REPORT | Summary of Care ---
Author Author [facility] er Organization [facility] er Address Unknown Phone Unavailable Care Team Providers Care Topographical Surveyor Name Role Phone ANGIE MONSON DO PCP Encounter [facility] [id number] Date(s): 01/10/16 - 05/06/[address] [address] Final: Spinal stenosis, lumbar region Final: [...] 0 Refill(s) Start Date: 01/10/16 Status: Ordered [place] 7.5/325 1 TAB, PO, Q6H (Every 6 [...]
--- OUTSIDE RECORDS SUMMARY | 2019-08-30 22:00 | XMS REPORT | Summary of Care ---
Author Author [facility] er Organization [facility] er Address Unknown Phone Unavailable Care Team Providers Care Marketing Co Op Name Role Phone ANGIE MONSON DO PCP Encounter [facility] [id number] Date(s): 01/10/16 - 05/06/[address] [address] Final: Spinal stenosis, lumbar region [...] 0 Refill(s) Start Date: 01/10/16 Status: Ordered [place] 7.5/325 1 TAB, PO, Q6H (Every 6 [...]
--- OUTSIDE RECORDS SUMMARY | 2019-08-30 22:00 | XMS REPORT | Summary of Care ---
Author Author [facility] Organization [facility] Address Unknown Phone Unavailable Care Team Providers Care Turret Lathe Machinist Name Role Phone ANGIE MONSON DO PCP Encounter [facility] [id number] Date(s): 10/30/16 - 12/30/16 [facility] [address] [place], [place] [address] Final: Postlaminectomy syndrome, not [...]
--- OUTSIDE RECORDS SUMMARY | 2019-08-30 22:00 | XMS REPORT | Summary of Care ---
Author Author [facility] er Organization [facility] er Address Unknown Phone Unavailable Care Team Providers Care Transformer Molder Name Role Phone ANGIE MONSON DO PCP Encounter [facility] [id number] Date(s): 01/10/16 - 05/06/[address] [address] Final: Spinal stenosis, lumbar region [...] 0 Refill(s) Start Date: 01/10/16 Status: Ordered [place] 7.5/325 1 TAB, PO, Q6H (Every 6 [...]
--- OUTSIDE RECORDS SUMMARY | 2019-08-30 22:01 | XMS REPORT | Summary of Care ---
Author Author [facility] er Organization [facility] er Address Unknown Phone Unavailable Care Team Providers Care Information Security Director Name Role Phone ANGIE MONSON DO PCP Encounter [facility] JUDI Vaca [id number] Date(s): 01/27/17 - 03/29/[address] [address] Encounter Diagnosis Postlaminectomy syndrome, not elsewhere classified (Final) - Intervertebral disc disorders with radiculopathy, lumbar region (Final) - Discharge Disposition: Home - [...] Procedure Date Related Diagnosis Body Site Status Inj:Lumbar Epi Steroid1 12/22/16 Completed 1auto-populated from documented surgical case Social History No data available for this section Functional Status No data available for this section Assessment and Plan No data available for this section Hospital Discharge Instructions No data available for this section
--- OUTSIDE RECORDS SUMMARY | 2019-08-30 22:01 | XMS REPORT | Summary of Care ---
Author Author [facility] er Organization [facility] er Address Unknown Phone Unavailable Care Team Providers Care Ledger Clerk Name Role Phone ANGIE MONSON DO PCP Encounter [facility] [id number] Date(s): 06/05/16 - 08/05/[address] [address] Final: Postlaminectomy syndrome, not elsewhere classified Final: Spinal stenosis, lumbar region Final: Radiculopathy, lumbar region Discharge Disposition: Home - 01 [...] Procedures Procedure Date Related Diagnosis Body Site Consult Followup Visit1 06/05/16 1auto-populated from documented surgical case Social History No data available for this section Functional Status No data available for this section Assessment and Plan No data available for this section Hospital Discharge Instructions No data available for this section
--- OUTSIDE RECORDS SUMMARY | 2019-08-30 22:01 | XMS REPORT | Summary of Care ---
Author Author [facility] Address Unknown Phone Unavailable Care Team Providers Care Hide Shaker Name Role Phone ANGIE MONSON DO PCP Encounter [facility] [id number] Date(s): 10/30/16 - 12/30/16 [facility] [address] [place], [place] [address] Final: Postlaminectomy syndrome, not elsewhere classified Final: [...]
--- OUTSIDE RECORDS SUMMARY | 2019-08-30 22:01 | XMS REPORT | Summary of Care ---
Author Author [facility] Organization [facility] Address Unknown Phone Unavailable Care Team Providers Care Engineering Executive Name Role Phone ANGIE MONSON DO PCP Encounter [facility] [id number] Date(s): 10/30/16 - 12/30/16 [facility] [address] [place], [place] [address] Final: Postlaminectomy syndrome, not [...]
--- OUTSIDE RECORDS SUMMARY | 2019-08-30 22:01 | XMS REPORT | Summary of Care ---
Author Author [facility] er Organization [facility] er Address Unknown Phone Unavailable Care Team Providers Care Management Manager Name Role Phone ANGIE MONSON DO PCP Encounter [facility] [phone] Date(s): 01/10/16 - 05/06/[address] [address] Final: Spinal stenosis, lumbar region [...] 0 Refill(s) Start Date: 01/10/16 Status: Ordered [place] 7.5/325 1 TAB, PO, Q6H (Every 6 [...]
--- OUTSIDE RECORDS SUMMARY | 2019-08-30 22:01 | XMS REPORT | Summary of Care ---
Author Author [facility] er Organization [facility] er Address Unknown Phone Unavailable Care Team Providers Care Food And Beverage Analyst Name Role Phone ANGIE MONSON DO PCP Encounter [facility] [id number] Date(s): 06/05/16 - 08/05/[address] [address] Final: Postlaminectomy syndrome, not elsewhere classified [...]
--- OUTSIDE RECORDS SUMMARY | 2019-08-30 22:01 | XMS REPORT | Summary of Care ---
Author Author [facility] er Organization [facility] er Address Unknown Phone Unavailable Care Team Providers Care Disaster Recovery Analyst Name Role Phone ANGIE MONSON DO PCP Encounter [facility] [id number] Date(s): 06/05/16 - 08/05/[address] [address] Final: Postlaminectomy syndrome, not elsewhere classified [...]
--- OUTSIDE RECORDS SUMMARY | 2019-08-30 22:01 | XMS REPORT | Summary of Care ---
Author Author [facility] Organization [facility] Address Unknown Phone Unavailable Care Team Providers Care Sap Basis Name Role Phone ANGIE MONSON DO PCP Encounter [facility] [id number] Date(s): 10/30/16 - 12/30/16 [facility] [address] [place], [place] [address] Final: Postlaminectomy syndrome, not [...]
--- OUTSIDE RECORDS SUMMARY | 2019-08-30 22:01 | XMS REPORT | Summary of Care ---
Author Author [facility] Organization [facility] Address Unknown Phone Unavailable Care Team Providers Care Lamp Assembler Name Role Phone ANGIE MONSON DO PCP Encounter [facility] [id number] Date(s): 10/30/16 - 12/30/16 [facility] [address] [place], [place] [address] Final: Postlaminectomy syndrome, not [...]
--- OUTSIDE RECORDS SUMMARY | 2019-08-30 22:01 | XMS REPORT | Summary of Care ---
Author Author [facility] Organization [facility] Address Unknown Phone Unavailable Care Team Providers Care Landfill Gas Technician Name Role Phone ANGIE MONSON DO PCP Encounter [facility] JUDI Vaca [id number] Date(s): 01/27/17 - 03/29/[address] [address] Encounter Diagnosis Postlaminectomy syndrome, not elsewhere classified [...]
--- OUTSIDE RECORDS SUMMARY | 2019-08-30 22:01 | XMS REPORT | Summary of Care ---
Author Author [facility] er Organization [facility] er Address Unknown Phone Unavailable Care Team Providers Care El Teacher Name Role Phone ANGIE MONSON DO PCP Encounter [facility] [id number] Date(s): 06/05/16 - 08/05/[address] [address] Final: Postlaminectomy syndrome, not elsewhere classified [...]
--- OUTSIDE RECORDS SUMMARY | 2019-08-30 22:01 | XMS REPORT | Summary of Care ---
Author Author [facility] er Organization [facility] er Address Unknown Phone Unavailable Care Team Providers Care Diesel Engine Mechanic Apprentice Name Role Phone ANGIE MONSON DO PCP Encounter [facility] [id number] Date(s): 06/05/16 - 08/05/[address] [address] Final: Postlaminectomy syndrome, not elsewhere classified Final: [...]
--- OUTSIDE RECORDS SUMMARY | 2019-08-30 22:01 | XMS REPORT | Summary of Care ---
Author Author [facility] er Organization [facility] er Address Unknown Phone Unavailable Care Team Providers Care Embossing Clerk Name Role Phone ANGIE MONSON DO PCP Encounter [facility] [id number] Date(s): 06/05/16 - 08/05/[address] [address] Final: Postlaminectomy syndrome, not elsewhere [...]
--- OUTSIDE RECORDS SUMMARY | 2019-08-30 22:01 | XMS REPORT | Summary of Care ---
Author Author [facility] er Organization [facility] er Address Unknown Phone Unavailable Care Team Providers Care Sewing Department Supervisor Name Role Phone ANGIE MONSON DO PCP Encounter [facility] [id number] Date(s): 06/05/16 - 08/05/[address] [address] Final: Postlaminectomy syndrome, not elsewhere classified [...]
--- OUTSIDE RECORDS SUMMARY | 2019-08-30 22:01 | XMS REPORT | Summary of Care ---
Author Author [facility] er Organization [facility] er Address Unknown Phone Unavailable Care Team Providers Care Migrant Leader Name Role Phone ANGIE MONSON DO PCP Encounter [facility] [id number] Date(s): 06/05/16 - 08/05/[address] [address] Final: Postlaminectomy syndrome, not elsewhere classified [...]
--- OUTSIDE RECORDS SUMMARY | 2019-08-30 22:01 | XMS REPORT | Summary of Care ---
Author Author [facility] er Organization [facility] er Address Unknown Phone Unavailable Care Team Providers Care Radiation Therapy Technologist Name Role Phone ANGIE MONSON DO PCP Encounter [facility] [phone] Date(s): 06/05/16 - 08/05/[address] [address] Final: Postlaminectomy syndrome, not elsewhere classified [...]
--- OUTSIDE RECORDS SUMMARY | 2019-08-30 22:01 | XMS REPORT | Summary of Care ---
Author Author [facility] er Organization [facility] er Address Unknown Phone Unavailable Care Team Providers Care Paratransit Driver Name Role Phone ANGIE MONSON DO PCP Encounter [facility] [id number] Date(s): 01/10/16 - 05/06/[address] [address] Final: Spinal stenosis, lumbar region Final: Connective [...] 0 Refill(s) Start Date: 01/10/16 Status: Ordered [place] 7.5/325 1 TAB, PO, Q6H (Every 6 [...]
--- OUTSIDE RECORDS SUMMARY | 2019-08-30 22:01 | XMS REPORT | Summary of Care ---
Author Author [facility] er Organization [facility] er Address Unknown Phone Unavailable Care Team Providers Care Policy Writer Typist Name Role Phone ANGIE MONSON DO PCP Encounter [facility] [phone] Date(s): 06/05/16 - 08/05/[address] [address] Final: Postlaminectomy syndrome, not elsewhere classified Final: [...]
--- OUTSIDE RECORDS SUMMARY | 2019-08-30 22:02 | XMS REPORT | Summary of Care ---
Author Author [facility] er Organization [facility] er Address Unknown Phone Unavailable Care Team Providers Care Junior Accountant Name Role Phone ANGIE MONSON DO PCP Encounter [facility] JUDI Vaca [id number] Date(s): 01/27/17 - 03/29/[address] [address] Encounter Diagnosis Postlaminectomy syndrome, not [...]
--- OUTSIDE RECORDS SUMMARY | 2019-08-30 22:02 | XMS REPORT | Summary of Care ---
Author Author [facility] er Organization [facility] er Address Unknown Phone Unavailable Care Team Providers Care Creel Clerk Name Role Phone AGNIE MONSON DO PCP En[place] [facility] Vaca [id number] Date(s): 01/27/17 - 03/29/[address] [address] Encounter Diagnosis Postlaminectomy syndrome, not elsewhere classified [...]
--- OUTSIDE RECORDS SUMMARY | 2019-08-30 22:02 | XMS REPORT | Summary of Care ---
Author Author [facility] er Organization [facility] er Address Unknown Phone Unavailable Care Team Providers Care Free Lance Model Name Role Phone ANGIE MONSON DO PCP Encounter [facility] JUDI Vaca [id number] Date(s): 01/27/17 - 03/29/[address] [address] Encounter Diagnosis Postlaminectomy syndrome, not elsewhere classified [...]
--- OUTSIDE RECORDS SUMMARY | 2019-08-30 22:02 | XMS REPORT | Summary of Care ---
Author Author [facility] er Organization [facility] er Address Unknown Phone Unavailable Care Team Providers Care Coordinate Measuring Machine Programmer Name Role Phone ANGIE MONSON DO PCP Encounter [facility] JUDI Vaca [id number] Date(s): 01/27/17 - 03/29/[address] [address] Encounter Diagnosis Postlaminectomy syndrome, not elsewhere classified [...]
--- OUTSIDE RECORDS SUMMARY | 2019-08-30 22:02 | XMS REPORT | Summary of Care ---
Author Author [facility] er Organization [facility] er Address Unknown Phone Unavailable Care Team Providers Care Premium Card Cancellation Clerk Name Role Phone ANGIE MONSON DO PCP Encounter [facility] JUDI Vaca [phone] Date(s): 01/27/17 - 03/29/[address] [id number] Encounter Diagnosis Postlaminectomy syndrome, not elsewhere classified [...]
--- OUTSIDE RECORDS SUMMARY | 2019-08-30 22:02 | XMS REPORT | Summary of Care ---
Author Author [facility] er Organization [facility] er Address Unknown Phone Unavailable Care Team Providers Care Stereotype Caster Name Role Phone ANGIE MONSON DO PCP Encounter [facility] JUDI Vaca [phone] Date(s): 01/27/17 - 03/29/[address] [id number] Encounter Diagnosis Postlaminectomy syndrome, not elsewhere [...]
--- OUTSIDE RECORDS SUMMARY | 2019-08-30 22:02 | XMS REPORT | Continuity of Care Document ---
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 Active 07/15/2019 [email or web address] OTHER SPECIFIED DORSOPATHIES, LUMBAR REG Active 07/15/2019 [email or web address] RADICULOPATHY, LUMBOSACRAL REGION Active 07/15/2019 [email or web address] LOW BACK PAIN Active 07/15/2019 [email or web address] OTHER INTERVERTEBRAL DISC DISPLACEMENT, Active 07/09/2018 [facility] [place] OTHER INTERVERTEBRAL DISC DEGENERATION, Active 12/11/2015 [facility] [place] OTHER INTERVERTEBRAL DISC DISORDERS, LUM Active 12/11/2015 [facility] [place] TYPE 2 DIABETES MELLITUS WITHOUT COMPLIC Active 09/05/2015 [facility] [place] ESSENTIAL (PRIMARY) HYPERTENSION Active 09/05/2015 [facility] [place] [facility] (CURRENT) USE OF INSULIN Active 09/05/2015 [email or web address] DIZZINESS AND GIDDINESS Active 09/05/2015 [facility] [place] Discharge Diagnosis: Lumbar spinal stenosis 09/03/2015 Discharge Diagnosis 09/06/2015 [facility] Spinal stenosis, lumbar region Final 01/09/2017 [facility] [place] [place] Postlaminectomy syndrome, not elsewhere classified Final 07/16/2019 [facility] [place] [place] Radiculopathy, lumbar region Final 07/16/2019 [facility] [place],[facility] Spinal stenosis of lumbar region (disorder) Active Problem 07/16/2019 [facility] [place],[facility] Intervertebral disc disorders with radic ulopathy, lumbar region Final 04/08/2017 [facility] Spondylosis without myelopathy or radicu lopathy, lumbar region Final 07/16/2019 [facility] Other specified dorsopathies, lumbar region Final 07/15 [facility] Radiculopathy, lumbosacral region Final 07/15 [facility] Other intervertebral disc displacement, lumbar region Final 07/10/2018 [facility] [place] Connective tissue and disc stenosis of i ntervertebral foramina of lumbar region Final 05/16/2016 [facility] Lordosis, unspecified, lumbar region Final 05/16 [facility] INTERVERTEBRAL DISC DISORDERS WITH RADIC Active [facility] SPINAL STENOSIS, LUMBAR REGION Active [facility] CONNECTIVE TISSUE AND DISC STENOSIS OF I Active [facility] LORDOSIS, UNSPECIFIED, LUMBAR REGION Active [facility] Medications Medication Details Route Status Patient Instructions Ordering Provider Order Date Source Unknown Medication 1 CAP, PO, BID (2 times a day), 0 Refill(s) Active 05/09/2018 [facility] NovoLIN 70/30 20 Unit, Subcut, BIDAC (2 times a day before meals), 0 Refill(s) Active 05/09/2018 [facility] Vitamin D3 2,000 Inter_Units, PO, Daily, 0 Refill(s) Active 05/09/2018 [facility] multivitamin 1 CAP, PO, Daily, 0 Refill(s) Active 05/09/2018 [facility] pioglitazone 30 mg oral tablet 1 TAB, PO, Daily, 0 Refill(s) Active 05/09/2018 [facility] Glucophage PO, 0 Refill(s) Active 12/01/2017 [facility] [place] Acetaminophen 325 MG / Hydrocodone Gennaro trate 7.5 MG Oral Tablet 1 TAB, PO, Q6H (Every 6 hours), PRN Mode rate Pain, 0 Refill(s) Active 01/10/2016 [facility] gabapentin 600 mg, PO, TID (3 times a day), 0 Refill(s) Active 01/10/2016 [facility] Cyclobenzaprine hydrochloride 10 MG Oral Tablet [Flexeril] 1 TAB, PO, TID (3 times a day), PRN Musc le Spasms, # 42 TAB, 0 Refill(s), Indication: Muscle Spasms Active 09/03/2015 [facility] Acetaminophen 325 MG / Hydrocodone Gennaro trate 7.5 MG Oral Tablet [Marion 7.5/325] 1 TAB, PO, Q4H (Every 4 hours), PRN as n eeded for pain, # 50 TAB, 0 Refill(s), Indication: Moderate Pain Active 09/03/2015 [facility] Aleve 220 mg, PO, Q12H (Every 12 hours), PRN as needed for pain, 0 Refill(s), Indication: Mild Pain Active 08/22/2015 [facility] multivitamin 1 TAB, PO, Daily, 0 Refill(s), Indication: Vitamin Supplement Active 08/22/2015 [facility] Testosterone Cypionate 100 mg/mL intramuscular solutio n = 1 mL, IM, Q4WEEK (Every 4 weeks), 0 Refill(s), HRT, Indication: Other - See Special InstructionsSpecial Instructions: HRT Active 08/22/2015 [facility] 3 ML insulin detemir 100 UNT/ML Prefille d Syringe [Levemir] 80 UNITS, Subcut, QHS (At bedtime), 0 Re fill(s), Indication: Diabetes Active 08/22/2015 [facility] Insulin, Aspart, Human 20 Unit =, Subcut, ACBD (Before breakfast and dinner), 0 Refill(s), Indication: Diabetes Active 08/22/2015 [facility] 3 ML insulin detemir 100 UNT/ML Prefille d Syringe [Levemir] 70 UNITS, Subcut, Daily, 0 Refill(s), In dication: Diabetes Active 08/22/2015 [facility] pioglitazone 30 mg oral tablet 1 TAB, PO, Daily, 0 Refill(s), Indication: Diabetes Active 08/22/2015 [facility] benazepril 10 mg oral tablet 1 TAB, PO, Daily, 0 Refill(s), Indication: High Blood Pressure Active 08/22/2015 [facility] glipiZIDE 10 mg oral tablet 1 TAB, PO, Daily, 0 Refill(s), Indication: Diabetes Active 08/22/2015 [facility] metFORMIN 1000 mg oral tablet 1 TAB, PO, BID (2 times a day), 0 Refill(s), Indication: Diabetes Active 08/22/2015 [facility] Drug Treatment Unknown Active [facility] Allergies, Adverse Reactions, Alerts Substance Category Reaction Severity Reaction type Status Date Reported Comments Source penicillin Assertion Drug allergy Active [facility] [place], [facility] penicillin Assertion Drug allergy Active [facility] Immunizations Immunization Date Given Site Status Last Updated Comments Source Unknown completed [facility] Results Order Name Results Value Reference Range Date Interpretation Comments Source CHEMISTRY Creatinine POC 1.2 mg /dL 0.5 - 1.5 12/11/2015 Result Comment: Meter ID: [id number]
Ope rator: [id number] [facility] ISTAT SMM Creatinine POC 1.2 mg /dL 0.5 - 1.5 12/11/2015 N Meter ID: [id number]
Athletic Instructor: [id number] [facility] CHEMISTRY Glucose Level (POC) 117 mg /dL 70 - 100 09/05/2015 Result Comment: Meter ID: [id number]<b r/>Athletic Instructor: [id number] [facility] POC SMM Glucose Level (PO C) 117 mg/dL 70 - 100 09/05/2015 H Meter ID: [id number]
O perator: [id number] SULMA STORM
[facility] Glucose WB POC SMM Glucose Level (PO C) 120 mg/dL 70 - 100 09/05/2015 H Meter ID: [id number]
O perator: [id number] LINN NARVAEZ
[facility] Glucose WB POC SMM Glucose Level (PO C) 141 mg/dL 70 - 100 09/04/2015 H Meter ID: [id number]
O perator: [id number] LINN NARVAEZ
[facility] Glucose WB POC SMM Glucose Level (PO C) 177 mg/dL 70 - 100 09/04/2015 H Meter ID: [id number]
O perator: [id number] EMELYN VEGA
[facility] Glucose WB POC SMM Glucose Level (PO C) 109 mg/dL 70 - 100 09/04/2015 H Meter ID: [id number]
O perator: [id number] EMELYN VEGA
[facility] Glucose WB POC SMM Glucose Level (PO C) 145 mg/dL 70 - 100 09/04/2015 H Meter ID: [id number]
O perator: [phone] CARMONALUIS BRASHER
[facility] HgbA1c Hgb A1c 8.4 % 0.0 - 5.6 09/04/2015 H Prediabetic: 5.7-6.4%

Very High Risk: 6.0-6.4%

Diabetic: >/= 6.5%
[facility] HgbA1c Estimated Average Glucose 194 mg/dL 09/04/2015 NA [facility] CHEMISTRY Calcium 8.9 mg/dL 8.6 - 10.2 09/03/2015 [facility] CHEMISTRY Creatinine 1.0 mg/dL 0.7 - 1.2 09/03/2015 [facility] CHEMISTRY CO2 26 mmol/L 22 - 29 09/03/2015 [facility] CHEMISTRY AGAP 12 mmol/L 3 - 19 09/03/2015 [facility] CHEMISTRY Glucose 229 mg/dL 70 - 100 09/03/2015 [facility] CHEMISTRY BUN 22 mg/dL 8 - 20 09/03/2015 [facility] CHEMISTRY Sodium 138 mmol/L 136 - 145 09/03/2015 [facility] CHEMISTRY Potassium 5.5 mmol/L 3.5 - 5.1 09/03/2015 [facility] CHEMISTRY Chloride 100 mmol/L 98 - 107 09/03/2015 [facility] CHEMISTRY GFR (CKD-EPI) 79.3 m L/min/1.73 m2 09/03/2015 Result Comment: GFR calculated based on CKD-EPI Creatinine Equation (2009).
Age(years) Average GFR
20-29 116 mL/min/1.73 m^2
30-39 107 mL/min/1.73 m^2
40-49 99 mL/min/1.73 m^2
50-59 93 mL/min/1.73 m^2
60-69 85 mL/min/1.73 m^2
70+ 75 mL/min/1.73 m^2
&lt ;br/>Acceptable GFR =>60 mL/min/1.73 m^2
Chronic Kidney Disease <60 mL/min/1.73 m^2
Kidney Failure <15 mL/min/1.73 m^2 [facility] CHEMISTRY Est CrCL (CG) 69.5 m L/min 09/03/2015 Result Comment: Estimated Creatinine Clint arance calculated based on the Cockcroft-Gault formula. [facility] CHEMISTRY Hgb A1c 8.4 % 0.0 - 5.6 09/03/2015 [facility] CHEMISTRY Estimated Average Glucose 194 mg/dL 09/03/2015 [facility] Glucose WB POC SMM Glucose Level (PO C) 203 mg/dL 70 - 100 09/03/2015 H Meter ID: [id number]
O perator: [id number] MATHEW BRASHER
[facility] Glucose WB POC SMM Glucose Level (PO C) 239 mg/dL 70 - 100 09/03/2015 H Meter ID: [id number]
O perator: [phone] EMELYN VEGA
[facility] Renal Funct Index GFR (CKD-EPI) 79.3 mL/min/1.73 m2 09/03/2015 NA GFR calculated based on CKD -EPI Creatinine Equation (2009).
Age(years) Average GFR
20-29 116 mL/min/1.73 m^2
30-39 107 mL/min/1.73 m^2
40-49 99 mL/min/1.73 m^2
50-59 93 mL/min/1.73 m^2
60-69 85 mL/min/1.73 m^2
70+ 75 mL/min/1.73 m^2

Acceptable GFR =>60 mL/min/1.73 m^2
Chronic Kidney Disease <60 mL/min/1.73 m^2
Kidney Failure <15 mL/min/1.73 m^2
[facility] BMP Sodium 138 mmol/L 136 - 145 09/03/2015 N [facility] BMP Potassium 5.5 mmol/L 3.5 - 5.1 09/03/2015 H [facility] BMP Chloride 100 mmol/L 98 - 107 09/03/2015 N [facility] BMP CO2 26 mmol/L 22 - 29 09/03/2015 N [facility] BMP AGAP 12 mmol/L 3 - 19 09/03/2015 N [facility] BMP Glucose 229 mg/dL 70 - 100 09/03/2015 H [facility] BMP BUN 22 mg/dL 8 - 20 09/03/2015 H [facility] BMP Creatinine 1.0 mg/dL 0.7 - 1.2 09/03/2015 N The presence of ketone bodies can cause artificially high results in serum, plasma and urine.
[facility] BMP Calcium 8.9 mg/dL 8.6 - 10.2 09/03/2015 N [facility] Glucose WB POC SMM Glucose Level (PO C) 152 mg/dL 70 - 100 09/03/2015 H Meter ID: [id number]
O perator: [phone] QASIM BUSTAMANTESSE
[facility] Glucose WB POC SMM Glucose Level (PO C) 178 mg/dL 70 - 100 09/03/2015 H Meter ID: [id number]
O perator: [phone] QASIM BUSTAMANTESSE
[facility] Glucose WB POC SMM Glucose Level (PO C) 229 mg/dL 70 - 100 09/03/2015 H Meter ID: [id number]
Op erator: [id number] OZZY MADDEN
[facility] Unknown UNK [facility] No data available for this section No data available for this section [facility] [place] No data available for this section No data available for this section [facility] Pathology Reports No Data Provided for This Section Diagnostic Reports Report Value Date Source MR Spine Lumbar W/WO Cont [address] [address] Radiology Reports CPT Codes: 87017, A9585 CDM Codes: 9831990 (MR Spine Lumbar W/WO Cont), 0362175 (C Contrast Gadavist Per 1/10 ML) Reason for exam: LOW BACK PAIN, LUMBAR RADICULOPATHY- M54.5, M54.16 Report MRI of the lumbar spine without and with contrast Indication: LOW BACK PAIN, LUMBAR RADICULOPATHY- M54.5, M54.16 Comparison: Lumbar spine radiograph, 09/03/2015. The outside lumbar spine MRI images were corrupt and not available for comparison. Technique: Multiplanar, multisequence MRI of the lumbar spine before and after the intravenous administration of 10 mL of Gadavist. An i-stat was drawn and the patient's GFR was 61 mL/min/1.73 m2. Findings: The conus is normal in appearance and position. The alignment of the lumbar spine is normal on these supine, neutral images. There are postsurgical changes of L3-L4 posterior decompression with edema and enhancement in the posterior soft tissues dorsal to the L3-L4 level. There is a small, peripherally enhancing fluid collection inferior to the spinous process of L2 measuring approximately 1.9 x 1.4 cm. There is no edema or abnormal bone marrow signal within the adjacent L2 spinous process. There is enhancing tissue seen extending to the posterior epidural space (series 8, image 9) without significant mass effect on the thecal sac. There is no other abnormal epidural enhancement. There is no abnormal signal or edema within the disc spaces. T11-T12: Sagittal images only. No disc protrusion, canal stenosis, or foraminal narrowing. T12-L1: Sagittal images only. No disc protrusion, canal stenosis, or foraminal narrowing. L1-L2: No disc protrusion, canal stenosis, or foraminal narrowing. There is moderate bilateral facet arthropathy and ligamentum flavum hypertrophy. L2-L3: There is a small broad-based disc bulge which mildly effaces the ventral thecal sac but does not abut the cauda equina. There TUAN FAN [id number] Radiology Reports is severe bilateral facet arthropathy and ligamentum flavum hypertrophy without significant canal stenosis with the AP diameter of the sac measuring 9-10 mm. There is mild to moderate right and mild left foraminal narrowing. L3-L4: There are postsurgical changes of posterior decompression. Small broad-based disc osteophyte with a superimposed left paracentral disc protrusion effaces the ventral thecal sac and causes left-sided lateral recess stenosis (series 6, image 13). There is also enhancing fibrous tissue within the anterior epidural space related to prior surgery. There is severe bilateral facet arthropathy without significant canal stenosis due to the posterior decompression. There is moderate to severe left and severe right foraminal narrowing. L4-L5: Moderate broad-based disc osteophyte effaces the ventral thecal sac. There is mild bilateral facet arthropathy and ligamentum flavum hypertrophy causing mild central canal stenosis. There is moderate left and severe right foraminal narrowing. L5-S1: Small broad-based disc bulge with an extruded, free fragment extending along the posterior aspect of the left paracentral S1 vertebral body (series 3, image 7; series 6, image 24) measuring approximately 6 x 10 mm causing left lateral recess stenosis with mass effect on the descending left S1 nerve root. Visualized SI joints: Unremarkable. Visualized soft tissues: Unremarkable. Impression: 1. Postsurgical changes of posterior decompression at L3-L4 with a small peripherally enhancing fluid collection within the posterior soft tissues inferior to the L2 spinous process measuring 1.9 x 1.4 cm that is favored to be postsurgical in etiology given the lack of abnormal signal within the adjacent bone. An infectious process would be difficult to entirely exclude but is felt unlikely. 2. Severe degenerative disc disease at L3-L4 and L4-L5 is again noted with mild to moderate degenerative disc disease at L5-S1. At L3-L4, there is a small broad-based disc osteophyte with a superimposed left paracentral disc protrusion which causes left-sided lateral recess stenosis with likely mass effect on the descending left L4 nerve root. Additionally, there is severe bilateral facet arthropathy with moderate to severe left and severe right foraminal narrowing. 3. At L4-L5, there is a moderate broad-based disc osteophyte and mild bilateral facet arthropathy causing mild central canal stenosis and moderate left and severe right foraminal narrowing. Radiology Reports 4. At L5-S1, there is a small broad-based disc bulge with an extruded, free fragment extending along the posterior aspect of the left paracentral S1 vertebral body measuring approximately 6 x 10 mm causing left lateral recess stenosis with mass effect on the descending left S1 nerve root. Dictating El Smith Dictated 12/11/2015 17:28 Signing El Smith Location [id number] Final Transcribed by: ARUN 12/11/15 17:47 Signed by: EL CAST MD 12/11/15 17:47 12/11/2015 [facility] Consultation Notes Results Value Date Source Operative Report Operative Rep ort DATE OF 1945 SURGEON Mike Vasquez MD [employer] ATTENDANT Lul Torres, [facility] PREOPERATIVE DIAGNOSIS L3-L4 stenosis. POSTOPERATIVE DIAGNOSIS L3-L4 stenosis. OPERATION PERFORMED L3-4 decompressive laminectomy. DESCRIPTION OF PROCEDURE After satisfactory endotracheal anesthesia, the patient was turned on the Licona frame. After sterile prep and drape, an incision was made centered over L3-4, carried to the lumbodorsal fascia. Spinal needle was placed and check x- ray proved it to be at L2-3, moved up 1 level and extended the incision and stripped the ligamentous muscular attachments from the spines and lamina of L3 and 4. Two cerebellar retractors were placed. The entire spine of 3 was removed. The interlaminar space was easily entered at L3-4 and laminectomy was carried well up into L3, then turned downward on the left side, decompressing the L4 root in its exit around the pedicle. The same procedure was carried out on the right side with 3 and 4 mm Kerrison sequentially freeing the root and the dura with a Garrard and decompressing the root well down into L4. Once this was complete, the thecal sac was nicely decompressed and there was no tear in the dura. The wound was irrigated and dried. Hemostasis was absolute. Then the wound was closed in layers reapproximating the deep muscles with 0 Vicryl, the lumbodorsal fascia with 0 Vicryl interrupted, subcutaneous layers with 2-0 Vicryl and skin with 3-0 subcuticular Vicryl. Steri-Strips and a sterile dressing were applied. *END OF REPORT* PLO/so C.T. C.T. E: 09/03/2015 12:37 C.T./ Conf# [id number] Doc#: [id number] cc: 09/03/2015 [facility] Discharge Summaries No Data Provided for This Section History and Physicals Results Value Date Source History and Physical Preop His tory and Physical DATE OF ADMISSION 09/03/2015 DATE OF 1945 CHIEF COMPLAINT Back pain with leg pain. HISTORY OF PRESENT ILLNESS The patient is 70 years old. He gives a 3 week history of pain that begins in the left low back and extends around to the anterior thigh and neumann and into the dorsum of the right foot. There is associated numbness and tingling. He has a very mild occasional left hip pain. His bowel and bladder have been intact. He has tried chiropractic treatment without relief. On exam, he has difficulty walking on his heels and toes due to pain. His reflexes are absent. To direct testing, his lower extremity strength including plantar and dorsiflexors were normal. Sensation is slightly diminished in the right foot to pinprick. Straight leg raising and Gerard's maneuver are both negative. Review of his lumbar MRI shows focal stenosis at L3-L4 with an AP canal dimension of 6 mm. It appears that the patient has severe stenosis at L3-L4. He was offered epidural steroid injections, but would like to proceed with surgery. He has been counseled on the risks and alternatives to a decompressive lumbar laminectomy at L3-L4. He understands the risk of bleeding, infection, anesthesia difficulty, nerve root injury, dural injury, failure to improve and recurrence of his symptoms. PAST SURGICAL HISTORY Includes a total knee replacement, TURP, right knee surgery and left knee surgery prior to his replacement, and a hernia repair as a child. PAST MEDICAL HISTORY Positive for diabetes and hypertension. CURRENT MEDICATIONS 1. Metformin. 2. Glipizide. 3. Benazepril. 4. Pioglitazone. 5. Multivitamin.. 6. Vitamin D3. 7. Vitamin B12. 8. Levemir. 9. NovoLog. 10. Testosterone. ALLERGIES PENICILLIN. SOCIAL HISTORY Negative for alcohol and tobacco. PHYSICAL EXAMINATION GENERAL: This gentleman stated weight is 235 pounds. HEENT: Head is normocephalic. ENT is grossly negative. CHEST: Symmetrical. LUNGS: Clear. HEART: Reveals regular rate and rhythm. ABDOMEN: Soft and obese. SPINE AND EXTREMITIES: See history of present illness. NEUROLOGIC: Cranial nerves II-XII appear to be grossly intact. DIAGNOSTIC IMPRESSION Lumbar spinal stenosis at L3-L4. PLAN L3-L4 decompressive lumbar laminectomy. *END OF REPORT* NICO/les C.T. C.T. E: 09/01/2015 11:13 C.T./ Conf# [id number] Doc#: [id number] cc: 09/01/2015 [facility] Vital Signs Vital Sign Value Date Comments Source Pulse Equipment SPO2 (09/05/15 6 :54 AM) 09/05/2015 [facility] Heart Rate 110 bpm 09/05/2015 [facility] Temp Method Oral (09/05/15 6:53 AM) 09/05/2015 [facility] Temperature 97.6 [degF] 09/05/2015 [facility] Inet NIBP Systolic 148 mm[Hg] 09/05/2015 [facility] Inet NIBP Diastolic 82 mm[Hg] 09/05/2015 [facility] NIBP MAP 99 mm[Hg] 09/05/2015 [facility] Respiratory Rate 17 br/min 09/05/2015 [facility] BP Location Arm, left (09/04/15 6:52 AM) 09/04/2015 [facility] NIBP MAP Calc 111 09/03/2015 [facility] Vital Signs Status/Type Routin e Assessment (09/03/15 3:05 PM) 09/03/2015 [facility] Heart Rhythm Interpretation Si nus/atrial rhythm (09/03/15 12:45 PM) 09/03/2015 [facility] Vital Signs Status Vital signs taken (09/03/15 12:15 PM) 09/03/2015 [facility] BP Cuff Size Large (09/03/15 12 :15 PM) 09/03/2015 [facility] NIBP Alarms set and on Yes ( 12:15 PM) 09/03/2015 [facility] Encounters Location Location Details Encounter Type Encounter Number Reason For Visit Attending Provider ADM Date DC Date Status Source 006 006 [id number] MEG DA MONSON DO 04/20/2019 07[facility]15[facility]2019 [facility] [id number] MEG DA MONSON DO 05/09/2018 07/09/2018 Active [facility] [place] Recurring CPA [id number] ANGIE MONSON DO 12/01/2017 02/01/2018 [facility] [id number] R [id number] MEG DA MONSON DO 12/01/2017 01/31/2018 Active [facility] Recurring CPA [id number] ANGIE MONSON DO 01/27/2017 03/30/2017 [facility] [facility] [place] Recurring CPA [id number] MIKE VASQUEZ MD 10/30/2016 12/31/2016 [facility] [place] 006L 006L R [id number] AARTI VASQUEZ MD 10/30/2016 12/30/2016 Active [facility] hospital Recurring CPA [id number] MIKE VASQUEZ MD 06/05/2016 08/06/2016 [facility] Recurring CPA [id number] MIKE VASQUEZ MD 01/10/2016 05/07/2016 [facility] 006 006 O [id number] AARTI VASQUEZ MD 12/11/2015 12/11/2015 Active [facility] [id number] [facility] 09/05/2015 09/05/2015 [facility] [id number] [facility] 09/05/2015 09/05/2015 [facility] 006 006 O [id number] AARTI VASQUEZ MD 09/03/2015 09/05/2015 Active [facility] Procedures Procedure Code Date Perfomer Comments Source Consult Followup Visit<sup>1</sup> 05/15/2019 auto-populated from documented surgical case [facility] Inj:Lumbar Epi Steroid (Bilateral)<sup>2</sup> 04/20/2019 auto-populated from documented surgical case [facility] Inj:Lumbar Epi Steroid (Bilateral)<sup>1</sup> 05/09/2018 auto-populated from documented surgical case [facility] Inj:Lumbar Epi Steroid (Bilateral)<sup>1</sup> 12/01/2017 auto-populated from documented surgical case [facility] [place] Inj:Lumbar Epi Steroid<sup>1</sup> 12/22/2016 auto-populated from documented surgical case [facility] Inj:Lumbar Epi Steroid<sup>1</sup> 10/30/2016 auto-populated from documented surgical case [facility] [place] Consult Followup Visit<sup>1</sup> 06/05/2016 auto-populated from documented surgical case [facility] Inj:Lumbar Epi Steroid<sup>1</sup> 03/06/2016 auto-populated from documented surgical case [facility] Inj:Lumbar Epi Steroid<sup>2</sup> 02/03/2016 auto-populated from documented surgical case [facility] Inj:Lumbar Epi Steroid<sup>3</sup> 01/10/2016 auto-populated from documented surgical case [facility] Initial Visit<sup>4</sup> 01/10/2016 auto- populated from documented surgical case [facility] TTE W/DOPPLER, COMPLETE [id number] 09/05/2015 [facility] Spine Laminectomy Lumbar Decompressive N euro<sup>1</sup> 09/03/2015 auto-populated from documented surgical case [facility] Unknown [facility] Plan of Care No Data Provided for This Section Social History Social History Date Source TypeDescriptionQuantityDate Captured Unknown 09/05/2015 [facility] Assessment and Plan No Data Provided for This Section Family History Value Date S ource Family MemberDiagnosisAge At Onset Unknown 09/05/2015 [facility] Advance Directives Order Name Results Value Date Source Advance Directives Advance Dir ectives DirectiveYes / NoEffective DateFile Name Unknown 09/05/2015 [facility] Functional Status No Data Provided for This Section
--- OUTSIDE RECORDS SUMMARY | 2019-08-30 22:02 | XMS REPORT | Summary of Care ---
Author Author [facility] Address Unknown Phone Unavailable Care Team Providers Care Line O Scribe Operator Name Role Phone ANGIE MONSON DO PCP Encounter [facility] [id number] Date(s): 05/09/18 - 07/09/[address] [address] Encounter Diagnosis Radiculopathy, lumbar region (Final) - Other intervertebral disc displacement, lumbar region (Final) - Discharge Disposition: Home - 01 Attending Physician: ANGIE MONSON DO Admitting Physician: ANGIE MONSON DO Referring Physician: ANGIE MONSON DO Vital Signs No data available for this section Problem List Condition Effective Dates Status Health Status Informan t Lumbar spinal Active stenosis(Confirmed) Allergies, Adverse Reactions, Alerts Substance Reaction Severity Status penicillin Active Medications multivitamin 1 CAP, PO, Daily, 0 Refill(s) Start Date: 05/09/18 Status: Ordered NovoLIN 70/30 20 Unit, Subcut, BIDAC (2 times a day before meals), 0 Refill(s) Start Date: 05/09/18 Status: Ordered pioglitazone 30 mg oral tablet 1 TAB, PO, Daily, 0 Refill(s) Start Date: 05/09/18 Status: Ordered Unknown Medication 1 CAP, PO, BID (2 times a day), 0 Refill(s) Start Date: 05/09/18 Status: Ordered Vitamin D3 2,000 Inter_Units, PO, Daily, 0 Refill(s) Start Date: 05/09/18 Status: Ordered Results No data available for this section Immunizations No data available for this section Procedures Procedure Date Related Diagnosis Body Site Status Inj:Lumbar Epi Steroid (Bilateral)1 05/09/18 Co mpleted 1auto-populated from documented surgical case Social History No data available for this section Functional Status No data available for this section Assessment and Plan No data available for this section Hospital Discharge Instructions No data available for this section
--- OUTSIDE RECORDS SUMMARY | 2019-08-30 22:02 | XMS REPORT | Summary of Care ---
Author Author [facility] Organization [facility] Address Unknown Phone Unavailable Care Team Providers Care Therapist Physical Name Role Phone ANGIE MONSON DO PCP Encounter [facility] JUDI Vaca [id number] Date(s): 12/01/17 - 01/31/18 [facility] [address] [place], [place] [address]- Encounter Diagnosis Radiculopathy, lumbar region (Final) - Postlaminectomy syndrome, not elsewhere classified (Final) - Discharge Disposition: Home - 01 Attending Physician: ANGIE MONSON DO Admitting Physician: ANGIE MONSON DO Referring Physician: ANGIE MONSON DO Vital Signs No data available for this section Problem List Condition Effective Dates Status Health Status Informan t Lumbar spinal Active stenosis(Confirmed) Allergies, Adverse Reactions, Alerts Substance Reaction Severity Status penicillin Active Medications Glucophage PO, 0 Refill(s) Start Date: 12/01/17 Status: Ordered Results No data available for this section Immunizations No data available for this section Procedures Procedure Date Related Diagnosis Body Site Status Inj:Lumbar Epi Steroid (Bilateral)1 12/01/17 Co mpleted 1auto-populated from documented surgical case Social History No data available for this section Functional Status No data available for this section Assessment and Plan No data available for this section Hospital Discharge Instructions No data available for this section
--- OUTSIDE RECORDS SUMMARY | 2019-08-30 22:02 | XMS REPORT | Summary of Care ---
Author Author [facility] er Organization [facility] er Address Unknown Phone Unavailable Care Team Providers Care Controller [place] Name Role Phone ANGIE MONSON DO PCP En[facility] JUDI Vaca [id number] Date(s): 01/27/17 - 03/29/[address] [address] Encounter Diagnosis Postlaminectomy syndrome, not [...]
--- OUTSIDE RECORDS SUMMARY | 2019-08-30 22:02 | XMS REPORT | Summary of Care ---
Author Author [facility] Organization [facility] Address Unknown Phone Unavailable Care Team Providers Care Ordnance Truck Installation Mechanic Name Role Phone ANGIE MONSON DO PCP Encounter [facility] JUDI Vaca [id number] Date(s): 01/27/17 - 03/29/[address] [address] Encounter Diagnosis Postlaminectomy syndrome, not elsewhere [...]
--- OUTSIDE RECORDS SUMMARY | 2019-08-30 22:02 | XMS REPORT | Continuity of Care Document ---
Author Organization Unknown Address Unknown Phone Unavailable Allergies Active Description Code Type Severity Reaction Onset Reported/Identified Relationship to Patient Clinical Status Yes Penicillins [id number] Drug Aller gy Unknown N/A 01/23/2019 Yes Penicillins [id number] Drug Aller gy Unknown FROM CHILDHOOD 05/16/2019 Medications There is no data. Problems Date Dx Coded Attending Type Code Diagnosis Diagnosed By 08/29/2011 Ot 250.00 RUDOLPH B PHYLLIS WO COMPL, TYPE II OR UNSPEC TY 08/29/2011 Ot 401.9 HYPE RTENSION NOS 08/29/2011 Ot 715.36 LOC OSTEOARTH NOS-L/LEG 06/11/2015 Ot 715.36 06/11/2015 Ot 791.9 06/11/2015 Ot V57.1 06/11/2015 Ot V57.21 06/11/2015 Ot V58.61 06/11/2015 Ot V72.63 06/11/2015 Ot V72.81 06/11/2015 Ot V74.8 06/11/2015 AIDE MAHONEY DO Ot Z01.818 06/11/2015 AIDE MAHONEY DO Ot K63. 5 POLYP OF COLON 06/11/2015 AIDE MAHONEY DO Ot Z12. 11 ENCOUNTER FOR SCREENING FOR MALIGNANT NE 06/11/2015 AIDE MAHONEY DO Ot Z79.899 OTHER BROODMARE FOREMAN (CURRENT) DRUG THERAPY 06/27/2015 AIDE MAHONEY DO Ot K63. 5 06/27/2015 AIDE MAHONEY DO Ot Z12. 11 06/27/2015 AIDE MAHONEY DO Ot Z79.899 06/27/2015 AIDE MAHONEY DO Ot K63. 5 06/27/2015 AIDE MAHONEY DO Ot Z12. 11 06/27/2015 AIDE MAHONEY DO Ot Z79.899 07/30/2015 ERIN SEALS DO Ot M25.551 PAIN IN RIGHT HIP 07/30/2015 ERIN SEALS DO Ot Z53.21 PROC/TRTMT NOT CRD OUT D/T PT LV BEF SEE 08/01/2015 ERIN SEALS DO Ot M25.551 PAIN IN RIGHT HIP 08/01/2015 ERIN SEALS DO Ot Z53.21 PROC/TRTMT NOT CRD OUT D/T PT LV BEF SEE 08/01/2015 ERIN SEALS DO Ot M25.551 PAIN IN RIGHT HIP 08/01/2015 ERIN SEALS DO Ot Z53.21 PROC/TRTMT NOT CRD OUT D/T PT LV BEF SEE 08/02/2015 Ot 715.36 LOC OSTEOARTH NOS-L/LEG 08/02/2015 Ot 791.9 ABN URINE FINDINGS NEC 08/02/2015 Ot V57.1 PHYS ICAL THERAPY NEC 08/02/2015 Ot V57.21 ENC OUNTER FOR OCCUPATIONAL THERAPY 08/02/2015 Ot V58.61 ANTICOAGULANTS,LT,CURRENT USE 08/02/2015 Ot V72.63 PRE -PROCEDURAL LABORATORY EXAMINATION 08/02/2015 Ot V72.81 [id number] CARDIOVASCULAR 08/02/2015 Ot V74.8 SCRE EN-BACTERIAL DIS NEC 08/02/2015 AIDE MAHONEY DO Ot Z01.818 ENCOUNTER FOR OTHER PREPROCEDURAL EXAMIN 08/02/2015 ERIN SEALS DO Ot M25.551 PAIN IN RIGHT HIP 08/02/2015 ERIN SEALS DO Ot Z53.21 PROC/TRTMT NOT CRD OUT D/T PT LV BEF SEE 08/05/2015 JODY PRECIADO APRN Ot S39.92XA UNSPECIFIED INJURY OF LOWER BACK, INITIA 08/05/2015 JODY PRECIADO APRN Ot X39.8XXA OTHER EXPOSURE TO FORCES OF NATURE, INIT 08/05/2015 JODY PRECIADO APRN Ot Y99.8 OTHER EXTERNAL CAUSE STATUS 08/13/2015 ERIN SEALS DO Ot M25.551 PAIN IN RIGHT HIP 08/13/2015 ERIN SEALS DO Ot Z53.21 PROC/TRTMT NOT CRD OUT D/T PT LV BEF SEE 08/22/2015 JODY PRECIADO APRN Ot S39.92XA UNSPECIFIED INJURY OF LOWER BACK, INITIA 08/22/2015 PRECIADOJODY Power CHANO Ot X39.8XXA OTHER EXPOSURE TO FORCES OF NATURE, INIT 08/22/2015 JODY PRECIADO MANAGER OF CHANGE Ot Y99.8 OTHER EXTERNAL CAUSE STATUS 11/08/2015 AIDE MAHONEY DO Ot Z01.818 ENCOUNTER FOR OTHER PREPROCEDURAL EXAMIN 11/11/2015 AIDE MAHONEY DO Ot Z01.818 ENCOUNTER FOR OTHER PREPROCEDURAL EXAMIN 11/11/2015 MAHONEYAIDE HOLMAN DO Ot Z01.818 ENCOUNTER FOR OTHER PREPROCEDURAL EXAMIN 11/11/2015 AIDE MAHONEY DO Ot Z01.818 ENCOUNTER FOR OTHER PREPROCEDURAL EXAMIN 11/12/2015 AIDE MAHONEY DO Ot D12. 3 BENIGN NEOPLASM OF TRANSVERSE COLON 11/12/2015 AIDE MAHONEY DO Ot E11. 9 TYPE 2 DIABETES MELLITUS WITHOUT COMPLIC 11/12/2015 AIDE MAHONEY DO Ot K63. 5 POLYP OF COLON 11/12/2015 AIDE MAHONEY DO Ot Z12. 11 ENCOUNTER FOR SCREENING FOR MALIGNANT NE 11/15/2015 AIDE MAHONEY DO Ot D12. 3 BENIGN NEOPLASM OF TRANSVERSE COLON 11/15/2015 AIDE MAHONEY DO Ot E11. 9 TYPE 2 DIABETES MELLITUS WITHOUT COMPLIC 11/15/2015 AIDE MAHONEY DO Ot Z12. 11 ENCOUNTER FOR SCREENING FOR MALIGNANT NE 11/15/2015 MAHONEY AIDE [place] Ot D12. 3 BENIGN NEOPLASM OF TRANSVERSE COLON 11/15/2015 AIDE MAHONEY DO Ot E11. 9 TYPE 2 DIABETES MELLITUS WITHOUT COMPLIC 11/15/2015 AIDE MAHONEY DO Ot Z12. 11 ENCOUNTER FOR SCREENING FOR MALIGNANT NE 12/23/2017 Ot M19.012 MA IMARY OSTEOARTHRITIS, LEFT SHOULDER 12/23/2017 Ot M75.122 CO MPLETE ROTATR- CUFF TEAR/RUPTR OF LEFT 12/23/2017 Ot M85.512 AN EURYSMAL BONE CYST, LEFT SHOULDER 12/23/2017 Ot S43.002A U NSPECIFIED SUBLUXATION OF LEFT SHOULDER 01/23/2019 AIDE MAHONEY DO Ot Z01.818 ENCOUNTER FOR OTHER PREPROCEDURAL EXAMIN 01/24/2019 AIDE MAHONEY DO Ot Z01.818 ENCOUNTER FOR OTHER PREPROCEDURAL EXAMIN 01/26/2019 AIDE MAHONEY DO Ot Z01.818 ENCOUNTER FOR OTHER PREPROCEDURAL EXAMIN 01/26/2019 PRECIADO JODY Kailyn MADDEN Ot S39.92XA UNSPECIFIED INJURY OF LOWER BACK, INITIA 01/26/2019 JODY PRECIADO CHANO Ot X39.8XXA OTHER EXPOSURE TO FORCES OF NATURE, INIT 01/26/2019 JODY PRECIADO CHANO Ot Y99.8 OTHER EXTERNAL CAUSE STATUS 01/26/2019 Ot M19.012 MA IMARY OSTEOARTHRITIS, LEFT SHOULDER 01/26/2019 Ot M75.122 CO MPLETE ROTATR- CUFF TEAR/RUPTR OF LEFT 01/26/2019 Ot M85.512 AN EURYSMAL BONE CYST, LEFT SHOULDER 01/26/2019 Ot S43.002A U NSPECIFIED SUBLUXATION OF LEFT SHOULDER 01/29/2019 AIDE MAHONEY DO Ot Z01.818 ENCOUNTER FOR OTHER PREPROCEDURAL EXAMIN 01/30/2019 AIDE MAHONEY DO Ot D12. 3 BENIGN NEOPLASM OF TRANSVERSE COLON 01/30/2019 AIDE MAHONEY DO Ot E11. 9 TYPE 2 DIABETES MELLITUS WITHOUT COMPLIC 01/30/2019 AIDE MAHONEY DO Ot I10 ESSENTIAL (PRIMARY) HYPERTENSION 01/30/2019 AIDE MAHONEY DO Ot Z12. 11 ENCOUNTER FOR SCREENING FOR MALIGNANT NE 01/30/2019 AIDE MAHONEY DO Ot Z80. 3 FAMILY HISTORY OF MALIGNANT NEOPLASM OF 01/30/2019 AIDE MAHONEY DO Ot Z80. 42 FAMILY HISTORY OF MALIGNANT NEOPLASM OF 01/30/2019 AIDE MAHONEY DO Ot Z80. 43 FAMILY HISTORY OF MALIGNANT NEOPLASM OF 01/30/2019 AIDE MAHONEY DO Ot Z82. 49 FAMILY HX OF ISCHEM HEART DIS AND OTH DI 01/30/2019 AIDE MAHONEY DO Ot Z83. 3 FAMILY HISTORY OF DIABETES MELLITUS 01/30/2019 AIDE MAHONEY DO Ot Z86.010 PERSONAL HISTORY OF COLONIC POLYPS 01/30/2019 AIDE MAHONEY DO Ot Z88. 0 ALLERGY STATUS TO PENICILLIN 02/03/2019 AIDE MAHONEY DO Ot D12. 3 BENIGN NEOPLASM OF TRANSVERSE COLON 02/03/2019 MAHONEY AIDE [place] Ot E11. 9 TYPE 2 DIABETES MELLITUS WITHOUT COMPLIC 02/03/2019 AIDE MAHONEY DO D Ot I10 ESSENTIAL (PRIMARY) HYPERTENSION 02/03/2019 MAHONEY AIDE [place] Ot Z12. 11 ENCOUNTER FOR SCREENING FOR MALIGNANT NE 02/03/2019 MAHONEY AIDE [place] Ot Z80. 3 FAMILY HISTORY OF MALIGNANT NEOPLASM OF 02/03/2019 MAHONEY AIDE [place] Ot Z80. 42 FAMILY HISTORY OF MALIGNANT NEOPLASM OF [facility] 43 FAMILY HISTORY OF MALIGNANT NEOPLASM OF 02/03/2019 MAHONEY DOAIDE Ot Z82. 49 FAMILY HX OF ISCHEM HEART DIS AND OTH DI 02/03/2019 MAHONEY DOAIDE Ot Z83. 3 FAMILY HISTORY OF DIABETES MELLITUS 02/03/2019 [facility] Z86.010 PERSONAL HISTORY OF COLONIC POLYPS 02/03/2019 [facility] Z88. 0 ALLERGY STATUS TO PENICILLIN 02/06/2019 [facility] D12. 3 BENIGN NEOPLASM OF TRANSVERSE COLON 02/06/2019 AIDE MAHONEY DO Ot E11. 9 TYPE 2 DIABETES MELLITUS WITHOUT COMPLIC 02/06/2019 AIDE MAHONEY DO Ot I10 ESSENTIAL (PRIMARY) HYPERTENSION 02/06/2019 AIDE MAHONEY DO Ot Z12. 11 ENCOUNTER FOR SCREENING FOR MALIGNANT NE 02/06/2019 AIDE MAHONEY DO Ot Z80. 3 FAMILY HISTORY OF MALIGNANT NEOPLASM OF 02/06/2019 AIDE MAHONEY DO Ot Z80. 42 FAMILY HISTORY OF MALIGNANT NEOPLASM OF 02/06/2019 MAHONEY DOAIDE Ot Z80. 43 FAMILY HISTORY OF MALIGNANT NEOPLASM OF 02/06/2019 MAHONEYAIDE HOLMAN DO D Ot Z82. 49 FAMILY HX OF ISCHEM HEART DIS AND OTH DI 02/06/2019 AIDE MAHONEY DO Ot Z83. 3 FAMILY HISTORY OF DIABETES MELLITUS 02/06/2019 MAHONEY AIDE [place] D Ot Z86.010 PERSONAL HISTORY OF COLONIC POLYPS 02/06/2019 [facility] Z88. 0 ALLERGY STATUS TO PENICILLIN 02/07/2019 MAHONEY AIDE D Ot D12. 3 BENIGN NEOPLASM OF TRANSVERSE COLON 02/07/2019 [facility] E11. 9 TYPE 2 DIABETES MELLITUS WITHOUT COMPLIC 02/07/2019 [facility] I10 ESSENTIAL (PRIMARY) HYPERTENSION 02/07/2019 [facility] Z12. 11 ENCOUNTER FOR SCREENING FOR MALIGNANT NE 02/07/2019 [facility] Z80. 3 FAMILY HISTORY OF MALIGNANT NEOPLASM OF 02/07/2019 [facility] Z80. 42 FAMILY HISTORY OF MALIGNANT NEOPLASM OF 02/07/2019 [facility] Z80. 43 FAMILY HISTORY OF MALIGNANT NEOPLASM OF 02/07/2019 [facility] Z82. 49 FAMILY HX OF ISCHEM HEART DIS AND OTH DI 02/07/2019 [facility] Z83. 3 FAMILY HISTORY OF DIABETES MELLITUS 02/07/2019 [facility] Z86.010 PERSONAL HISTORY OF COLONIC POLYPS 02/07/2019 [facility] Z88. 0 ALLERGY STATUS TO PENICILLIN 05/16/2019 [facility] Z01.818 ENCOUNTER FOR OTHER PREPROCEDURAL EXAMIN 05/19/2019 [facility] Z01.818 ENCOUNTER FOR OTHER PREPROCEDURAL EXAMIN 05/19/2019 JODY PRECIADO APRN Ot S39.92XA UNSPECIFIED INJURY OF LOWER BACK, INITIA 05/19/2019 JODY PRECIADO APRN Ot X39.8XXA OTHER EXPOSURE TO FORCES OF NATURE, INIT 05/19/2019 JODY PRECIADO APRN Ot Y99.8 OTHER EXTERNAL CAUSE STATUS 05/19/2019 Ot M19.012 MA IMARY OSTEOARTHRITIS, LEFT SHOULDER 05/19/2019 Ot M75.122 CO MPLETE ROTATR- CUFF TEAR/RUPTR OF LEFT 05/19/2019 Ot M85.512 AN EURYSMAL BONE CYST, LEFT SHOULDER 05/19/2019 Ot S43.002A U NSPECIFIED SUBLUXATION OF LEFT SHOULDER 05/22/2019 [facility] Z01.818 ENCOUNTER FOR OTHER PREPROCEDURAL EXAMIN 05/22/2019 JODY PRECIADO APRN Ot S39.92XA UNSPECIFIED INJURY OF LOWER BACK, INITIA 05/22/2019 JODY PRECIADO CHANO Ot X39.8XXA OTHER EXPOSURE TO FORCES OF NATURE, INIT 05/22/2019 JODY PRECIADO MANAGER OF CHANGE Ot Y99.8 OTHER EXTERNAL CAUSE STATUS 05/22/2019 Ot M19.012 MA IMARY OSTEOARTHRITIS, LEFT SHOULDER 05/22/2019 Ot M75.122 CO MPLETE ROTATR- CUFF TEAR/RUPTR OF LEFT 05/22/2019 Ot M85.512 AN EURYSMAL BONE CYST, LEFT SHOULDER 05/22/2019 Ot S43.002A U NSPECIFIED SUBLUXATION OF LEFT SHOULDER 05/23/2019 [facility] D12. 3 BENIGN NEOPLASM OF TRANSVERSE COLON 05/23/2019 [facility] E11. 40 TYPE 2 DIABETES MELLITUS WITH DIABETIC N 05/23/2019 [facility] E66. 9 OBESITY, UNSPECIFIED 05/23/2019 [facility] I10 ESSENTIAL (PRIMARY) HYPERTENSION 05/23/2019 [facility] K63. 5 POLYP OF COLON 05/23/2019 [facility] Z68. 35 BODY MASS INDEX (BMI) 35.0-35.9, ADULT 05/23/2019 MAHONEY AIDE [place] Ot Z79. 4 INTERMEDIATE (CURRENT) USE OF INSULIN 05/23/2019 [facility] Z79.899 OTHER INTERMEDIATE (CURRENT) DRUG THERAPY 05/23/2019 [facility] Z80. 9 FAMILY HISTORY OF MALIGNANT NEOPLASM, UN 05/23/2019 AIDE MAHONEY DO Ot Z82. 49 FAMILY HX OF ISCHEM HEART DIS AND OTH DI 05/23/2019 MAHONEY AIDE [place] Ot Z83. 3 FAMILY HISTORY OF DIABETES MELLITUS 05/23/2019 [facility] Z88. 0 ALLERGY STATUS TO PENICILLIN 05/29/2019 MAHONEY AIDE [place] Ot D12. 3 BENIGN NEOPLASM OF TRANSVERSE COLON 05/29/2019 [facility] E11. 40 TYPE 2 DIABETES MELLITUS WITH DIABETIC N 05/29/2019 [facility] E66. 9 OBESITY, UNSPECIFIED 05/29/2019 MAHONEY AIDE [place] Ot I10 ESSENTIAL (PRIMARY) HYPERTENSION 05/29/2019 [facility] K63. 5 POLYP OF COLON 05/29/2019 [facility] Z68. 35 BODY MASS INDEX (BMI) 35.0-35.9, ADULT 05/29/2019 [facility], AIDE [place] Ot Z79. 4 BROODMARE FOREMAN (CURRENT) USE OF INSULIN 05/29/2019 [facility] Z79.899 OTHER BROODMARE FOREMAN (CURRENT) DRUG THERAPY 05/29/2019 [facility] Z80. 9 FAMILY HISTORY OF MALIGNANT NEOPLASM, UN 05/29/2019 [facility], AIDE [place] Ot Z82. 49 FAMILY HX OF ISCHEM HEART DIS AND OTH DI 05/29/2019 [facility] Z83. 3 FAMILY HISTORY OF DIABETES MELLITUS 05/29/2019 [facility] Z88. 0 ALLERGY STATUS TO PENICILLIN 05/31/2019 [facility] D12. 3 BENIGN NEOPLASM OF TRANSVERSE COLON 05/31/2019 [facility] E11. 40 TYPE 2 DIABETES MELLITUS WITH DIABETIC N 05/31/2019 [facility] E66. 9 OBESITY, UNSPECIFIED 05/31/2019 [facility] Ot I10 ESSENTIAL (PRIMARY) HYPERTENSION 05/31/2019 [facility] Ot K63. 5 POLYP OF COLON 05/31/2019 [facility] Ot Z68. 35 BODY MASS INDEX (BMI) 35.0-35.9, ADULT 05/31/2019 [facility] Z79. 4 INTERMEDIATE (CURRENT) USE OF INSULIN 05/31/2019 [facility] Z79.899 OTHER BROODMARE FOREMAN (CURRENT) DRUG THERAPY 05/31/2019 [facility] Z80. 9 FAMILY HISTORY OF MALIGNANT NEOPLASM, UN 05/31/2019 [facility], AIDE [place] Ot Z82. 49 FAMILY HX OF ISCHEM HEART DIS AND OTH DI 05/31/2019 [facility] Z83. 3 FAMILY HISTORY OF DIABETES MELLITUS 05/31/2019 [facility] Z88. 0 ALLERGY STATUS TO PENICILLIN Procedures Code Description Performed By Kirk flores On 81.54 08/26/2011 Results Test Result Range Capillary blood glucose measurement by g lucometer (mass/volume) - 11/12/15 08:31 Capillary blood glucose measurement by glucometer (mas s/volume) 171 mg/dL 70-110 Capillary blood glucose measurement by g lucometer (mass/volume) - 01/30/19 10:59 Capillary blood glucose measurement by glucometer (mas s/volume) 143 mg/dL 70-110 Capillary blood glucose measurement by g lucometer (mass/volume) - 05/23/19 09:44 Capillary blood glucose measurement by glucometer (mas s/volume) 162 mg/dL 70-110 Encounters ACCT No. Visit Date/Time Discharge Status Pt. Type Provider Facility Loc./Unit Complaint [id number] 05/23/2019 09:31:00 020 12:20:00 DIS Outpatient AIDE MAHONEY DO [facility] ENDO SCREENING/TUBULIVILLOUS ADENOMA [id number] 05/16/2019 05:36:00 15:18:00 DIS Outpatient AIDE MAHONEY DO [facility] PREOP COLONOSCOPY [id number] 01/30/2019 10:39:00 019 12:45:00 DIS Outpatient MAHONEY AIDE [place] [facility] ENDO SCREENING/HX COLON POLY P [id number] 01/23/2019 06:29:00 019 10:48:00 DIS Outpatient MAHONEY AIDE [place] Via [facility] PREOP COLONOSCOPY [id number] 11/12/2015 08:11:00 016 10:35:00 DIS Outpatient MAHONEY AIDE [place] Via [facility] SDC TUBULAR ADENOMA [id number] 11/11/2015 10:00:00 016 10:15:00 DIS Outpatient MAHONEY AIDE [place] [facility] PREOP TUBULAR ADENOMA [id number] 08/02/2015 08:56:00 016 23:59:59 CLS Outpatient JODY PRECIADO APRN [facility] RAD BACK INJURY [id number] 07/30/2015 00:00:00 016 00:34:00 DIS Emergency ERIN SEALS DO [facility] ER RT SIDE HIP PAIN [id number] 06/11/2015 08:16:00 23:59:59 CLS Outpatient AIDE MAHONEY DO [facility] SDC SCREENING [id number] 06/06/2015 05:56:00 23:59:59 CLS Outpatient AIDE MAHONEY DO [facility] PREOP SCREENING [id number] 11/11/2017 06:58:00 Document Registration [id number] 08/26/2011 05:56:00 Document Registration [id number] 08/20/2011 09:45:00 Document Registration
--- OUTSIDE RECORDS SUMMARY | 2019-08-30 22:02 | XMS REPORT | Summary of Care ---
Author Author [facility] Organization [facility] er Address Unknown Phone Unavailable Care Team Providers Care Completions Engineer Name Role Phone ANGIE MONSON DO PCP Encounter [facility] JUDI Vaca [id number] Date(s): 01/27/17 - 03/29/[address] [id number] Encounter Diagnosis Postlaminectomy syndrome, not elsewhere [...]
[2019-08-30] MEDS: CATHETER FLUSH 10 ML SYR IV SCH (22:43)
--- OUTSIDE RECORDS SUMMARY | 2019-08-30 22:54 | XMS REPORT | Continuity of Care Document ---
Author Organization Unknown Address Unknown Phone Unavailable Allergies Active Description Code Type Severity Reaction Onset Reported/Identified Relationship to Patient Clinical Status Yes Penicillins [id number] Drug Aller gy Unknown N/A 01/23/2019 Yes Penicillins [id number] Drug Aller gy Unknown FROM CHILDHOOD 05/16/2019 [...] 06/11/2015 AIDE MAHONEY DO Ot Z79.899 OTHER CHILD CARE WORKER (CURRENT) DRUG THERAPY 06/27/2015 AIDE MAHONEY DO [...] PRE -PROCEDURAL LABORATORY EXAMINATION 08/02/2015 Ot V72.81 [id number] CARDIOVASCULAR 08/02/2015 Ot V74.8 SCRE EN-BACTERIAL DIS [...] FORCES OF NATURE, INIT 08/22/2015 JODY PRECIADO CAMERA SUPERVISOR Ot Y99.8 OTHER EXTERNAL CAUSE STATUS 11/08/2015 [...] SCREENING FOR MALIGNANT NE 12/23/2017 Ot M19.012 AL IMARY OSTEOARTHRITIS, LEFT SHOULDER 12/23/2017 Ot M75.122 [...] OTHER EXTERNAL CAUSE STATUS 01/26/2019 Ot M19.012 AL IMARY OSTEOARTHRITIS, LEFT SHOULDER 01/26/2019 Ot M75.122 [...] FAMILY HISTORY OF [facility]IGNANT [facility] 43 FAMILY HISTORY OF MALIGNANT NEOPLASM OF 02/03/2019 MAHONEY DOAIDE Ot Z82. 49 FAMILY HX OF ISCHEM HEART DIS AND OTH DI 02/03/2019 MAHONEY DOAIDE Ot Z83. 3 FAMILY HISTORY OF DIABETES MELLITUS 02/03/2019 [facility] Z86.010 PERSONAL HISTORY OF COLONIC POLYPS 02/03/2019 [facility] Z88. 0 ALLERGY STATUS TO PENICILLIN 02/06/2019 [facility] D12. 3 BENIGN NEOPLASM OF [...] Z86.010 PERSONAL HISTORY OF COLONIC POLYPS 02/06/2019 [facility] D Ot Z88. 0 ALLERGY STATUS TO PENICILLIN 02/07/2019 MAHONEY AIDE D Ot D12. 3 BENIGN NEOPLASM OF TRANSVERSE COLON 02/07/2019 [facility] E11. 9 TYPE 2 DIABETES MELLITUS WITHOUT COMPLIC 02/07/2019 [facility] Ot I10 ESSENTIAL (PRIMARY) HYPERTENSION 02/07/2019 [facility] Z12. 11 ENCOUNTER FOR SCREENING FOR MALIGNANT NE 02/07/2019 [facility] Z80. 3 FAMILY HISTORY OF MALIGNANT NEOPLASM OF 02/07/2019 [facility] Z80. 42 FAMILY HISTORY OF MALIGNANT NEOPLASM OF 02/07/2019 [facility] Z80. 43 FAMILY HISTORY OF MALIGNANT NEOPLASM OF 02/07/2019 [facility] Z82. 49 FAMILY HX OF ISCHEM HEART DIS AND OTH DI 02/07/2019 [facility] Z83. 3 FAMILY HISTORY OF DIABETES MELLITUS 02/07/2019 [facility] Ot Z86.010 PERSONAL HISTORY OF COLONIC POLYPS 02/07/2019 [facility] Z88. 0 ALLERGY STATUS TO PENICILLIN 05/16/2019 [facility] Ot Z01.818 ENCOUNTER FOR OTHER PREPROCEDURAL EXAMIN 05/19/2019 [facility] Ot Z01.818 ENCOUNTER FOR OTHER PREPROCEDURAL EXAMIN 05/19/2019 JODY PRECIADO APRN Ot S39.92XA UNSPECIFIED INJURY OF LOWER BACK, INITIA 05/19/2019 JODY PRECIADO APRN Ot X39.8XXA OTHER EXPOSURE TO FORCES OF NATURE, INIT 05/19/2019 JODY PRECIADO APRN Ot Y99.8 OTHER EXTERNAL CAUSE STATUS 05/19/2019 Ot M19.012 AL IMARY OSTEOARTHRITIS, LEFT SHOULDER 05/19/2019 Ot M75.122 CO MPLETE ROTATR- CUFF TEAR/RUPTR OF LEFT 05/19/2019 Ot M85.512 AN EURYSMAL BONE CYST, LEFT SHOULDER 05/19/2019 Ot S43.002A U NSPECIFIED SUBLUXATION OF LEFT SHOULDER 05/22/2019 [facility] Z01.818 ENCOUNTER FOR OTHER PREPROCEDURAL EXAMIN 05/22/2019 JODY PRECIADO APRN Ot S39.92XA UNSPECIFIED INJURY OF LOWER BACK, INITIA 05/22/2019 JODY PRECIADO CHANO Ot X39.8XXA OTHER EXPOSURE TO FORCES OF NATURE, INIT 05/22/2019 JODY PRECIADO CAMERA SUPERVISOR Ot Y99.8 OTHER EXTERNAL CAUSE STATUS 05/22/2019 Ot M19.012 AL IMARY OSTEOARTHRITIS, LEFT SHOULDER 05/22/2019 Ot M75.122 CO MPLETE ROTATR- CUFF TEAR/RUPTR OF LEFT 05/22/2019 Ot M85.512 AN EURYSMAL BONE CYST, LEFT SHOULDER 05/22/2019 Ot S43.002A U NSPECIFIED SUBLUXATION OF LEFT SHOULDER 05/23/2019 [facility] D12. 3 BENIGN NEOPLASM OF TRANSVERSE COLON 05/23/2019 [facility] Ot E11. 40 TYPE 2 DIABETES MELLITUS WITH DIABETIC N 05/23/2019 [facility] E66. 9 OBESITY, UNSPECIFIED 05/23/2019 [facility] Ot I10 ESSENTIAL (PRIMARY) HYPERTENSION 05/23/2019 [facility] Ot K63. 5 POLYP OF COLON 05/23/2019 [facility] Ot Z68. 35 BODY MASS INDEX (BMI) 35.0-35.9, ADULT 05/23/2019 MAHONEY AIDE [place] Ot Z79. 4 ASSISTED (CURRENT) USE OF INSULIN 05/23/2019 [facility] Ot Z79.899 OTHER ASSISTED (CURRENT) DRUG THERAPY 05/23/2019 [facility] Z80. 9 FAMILY HISTORY OF MALIGNANT NEOPLASM, UN 05/23/2019 AIDE MAHONEY DO Ot Z82. 49 FAMILY HX OF ISCHEM HEART DIS AND OTH DI 05/23/2019 MAHONEY AIDE [place] Ot Z83. 3 FAMILY HISTORY OF DIABETES MELLITUS 05/23/2019 [facility] Z88. 0 ALLERGY STATUS TO PENICILLIN 05/29/2019 MAHONEY AIDE [place] Ot D12. 3 BENIGN NEOPLASM OF TRANSVERSE COLON 05/29/2019 [facility] E11. 40 TYPE 2 DIABETES MELLITUS WITH DIABETIC N 05/29/2019 [facility] E66. 9 OBESITY, UNSPECIFIED 05/29/2019 MAHONEY AIDE [place] Ot I10 ESSENTIAL (PRIMARY) HYPERTENSION 05/29/2019 [facility] K63. 5 POLYP OF COLON 05/29/2019 [facility] Z68. 35 BODY MASS INDEX (BMI) 35.0-35.9, ADULT 05/29/2019 [facility], AIDE [place] Ot Z79. 4 CHILD CARE WORKER (CURRENT) USE OF INSULIN 05/29/2019 [facility] Z79.899 OTHER CHILD CARE WORKER (CURRENT) DRUG THERAPY 05/29/2019 [facility] Z80. 9 FAMILY HISTORY OF MALIGNANT NEOPLASM, UN 05/29/2019 [facility], AIDE [place] Ot Z82. 49 FAMILY HX OF ISCHEM HEART DIS AND OTH DI 05/29/2019 [facility] Z83. 3 FAMILY HISTORY OF DIABETES MELLITUS 05/29/2019 [facility] Z88. 0 ALLERGY STATUS TO PENICILLIN 05/31/2019 [facility] D12. 3 BENIGN NEOPLASM OF TRANSVERSE COLON 05/31/2019 [facility] Ot E11. 40 TYPE 2 DIABETES MELLITUS WITH DIABETIC N 05/31/2019 [facility] E66. 9 OBESITY, UNSPECIFIED 05/31/2019 [facility] Ot I10 ESSENTIAL (PRIMARY) HYPERTENSION 05/31/2019 [facility] Ot K63. 5 POLYP OF COLON 05/31/2019 [facility] Z68. 35 BODY MASS INDEX (BMI) 35.0-35.9, ADULT 05/31/2019 [facility] Z79. 4 ASSISTED (CURRENT) USE OF INSULIN 05/31/2019 [facility] Ot Z79.899 OTHER CHILD CARE WORKER (CURRENT) DRUG THERAPY 05/31/2019 [facility] Z80. 9 FAMILY HISTORY OF MALIGNANT NEOPLASM, UN 05/31/2019 [facility], AIDE [place] Ot Z82. 49 FAMILY HX OF ISCHEM HEART DIS AND OTH DI 05/31/2019 [facility] Z83. 3 FAMILY HISTORY OF DIABETES MELLITUS 05/31/2019 [facility] Z88. 0 ALLERGY STATUS TO [...] Status Pt. Type Provider Facility Loc./Unit Complaint [id number] 05/23/2019 09:31:00 020 12:20:00 DIS Outpatient AIDE MAHONEY DO Via [facility] ENDO SCREENING/TUBULIVILLOUS ADENOMA [id number] 05/16/2019 05:36:00 15:18:00 DIS Outpatient AIDE MAHONEY DO [facility] PREOP COLONOSCOPY [id number] 01/30/2019 10:39:00 019 12:45:00 DIS Outpatient MAHONEY AIDE [place] Via [facility] ENDO SCREENING/HX COLON POLY P [id number] 01/23/2019 06:29:00 019 10:48:00 DIS Outpatient MAHONEY AIDE [place] [facility] PREOP COLONOSCOPY [id number] 11/12/2015 08:11:00 016 10:35:00 DIS Outpatient MAHONEY AIDE [place] Via [facility] SDC TUBULAR ADENOMA [id number] 11/11/2015 10:00:00 016 10:15:00 DIS Outpatient MAHONEY AIDE [place] Via [facility] PREOP TUBULAR ADENOMA [id number] 08/02/2015 08:56:00 016 23:59:59 CLS Outpatient JODY PRECIADO APRN Via [facility] RAD BACK INJURY [id number] 07/30/2015 00:00:00 016 00:34:00 DIS Emergency ERIN SEALS DO Via [facility] ER RT SIDE HIP PAIN [id number] 06/11/2015 08:16:00 23:59:59 CLS Outpatient AIDE MAHONEY DO Via [facility] SDC SCREENING [id number] 06/06/2015 05:56:00 23:59:59 CLS Outpatient AIDE MAHONEY DO [facility] PREOP SCREENING [id number] 11/11/2017 06:58:00 Document Registration [id number] 08/26/2011 05:56:00 Document Registration [id number] 08/20/2011 09:45:00 Document Registration
--- OUTSIDE RECORDS SUMMARY | 2019-08-30 22:54 | XMS REPORT | Continuity of Care Document ---
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 07/15/2019 [facility] [place] OTHER SPECIFIED DORSOPATHIES, LUMBAR REG Active 07/15/2019 [facility] [place] RADICULOPATHY, LUMBOSACRAL REGION Active 07/15/2019 [facility] [place] LOW BACK PAIN Active 07/15/2019 [facility] OTHER INTERVERTEBRAL DISC DISPLACEMENT, Active 07/09/2018 [facility] [place] [place] OTHER INTERVERTEBRAL DISC DEGENERATION, Active 12/11/2015 [facility] [place] [place] OTHER INTERVERTEBRAL DISC DISORDERS, LUM Active 12/11/2015 [facility] [place] [place] TYPE 2 DIABETES MELLITUS WITHOUT COMPLIC Active 09/05/2015 [facility] [place] ESSENTIAL (PRIMARY) HYPERTENSION Active 09/05/2015 [facility] [place] MCFP (CURRENT) USE OF INSULIN Active 09/05/2015 [facility] [place] [facility] DIZZINESS AND GIDDINESS Active 09/05/2015 [facility] [place] Discharge Diagnosis: Lumbar spinal stenosis 09/03/2015 Discharge Diagnosis 09/06/2015 [facility] Spinal stenosis, lumbar region Final 01/09/2017 [facility] [place] [place] Postlaminectomy syndrome, not elsewhere classified Final 07/16/2019 [facility] [place] [place] Radiculopathy, lumbar region Final 07/16/2019 [facility] [place],[facility] Spinal stenosis of lumbar region (disorder) Active Problem 07/16/2019 [facility] [place] Intervertebral disc disorders with radic ulopathy, lumbar region Final 04/08/2017 [facility] Spondylosis without myelopathy or radicu lopathy, lumbar region Final 07/16/2019 [facility] Other specified dorsopathies, lumbar region Final 07/15 [facility] Radiculopathy, lumbosacral region Final 07/15 [facility] Other intervertebral disc displacement, lumbar region Final 07/10/2018 [facility] [place] Connective tissue and disc stenosis of i ntervertebral foramina of lumbar region Final 05/16/2016 [facility] Lordosis, unspecified, lumbar region Final 05/16 [facility] INTERVERTEBRAL DISC DISORDERS WITH RADIC Active [facility] SPINAL STENOSIS, LUMBAR REGION Active [facility] CONNECTIVE TISSUE AND DISC STENOSIS OF I Active [facility] LORDOSIS, UNSPECIFIED, LUMBAR REGION Active [facility] Medications Medication Details Route Status Patient Instructions Ordering Provider Order Date Source Unknown Medication 1 CAP, PO, BID (2 times a day), 0 Refill(s) Active 05/09/2018 [facility] NovoLIN 70/30 20 Unit, Subcut, BIDAC (2 times a day before meals), 0 Refill(s) Active 05/09/2018 [facility] Vitamin D3 2,000 Inter_Units, PO, Daily, 0 Refill(s) Active 05/09/2018 [facility] multivitamin 1 CAP, PO, Daily, 0 Refill(s) Active 05/09/2018 [facility] pioglitazone 30 mg oral tablet 1 TAB, PO, Daily, 0 Refill(s) Active 05/09/2018 [facility] Glucophage PO, 0 Refill(s) Active 12/01/2017 [facility] Acetaminophen 325 MG / Hydrocodone Gennaro trate 7.5 MG Oral Tablet 1 TAB, PO, Q6H (Every 6 hours), PRN Mode rate Pain, 0 Refill(s) Active 01/10/2016 [facility] gabapentin 600 mg, PO, TID (3 times a day), 0 Refill(s) Active 01/10/2016 [facility] Cyclobenzaprine hydrochloride 10 MG Oral Tablet [Flexeril] 1 TAB, PO, TID (3 times a day), PRN Musc le Spasms, # 42 TAB, 0 Refill(s), Indication: Muscle Spasms Active 09/03/2015 [facility] Acetaminophen 325 MG / Hydrocodone Gennaro trate 7.5 MG Oral Tablet [[place]ide 7.5/325] 1 TAB, PO, Q4H (Every 4 hours), PRN as n eeded for pain, # 50 TAB, 0 Refill(s), Indication: Moderate Pain Active 09/03/2015 [facility] Aleve 220 mg, PO, Q12H (Every 12 hours), PRN as needed for pain, 0 Refill(s), Indication: Mild Pain Active 08/22/2015 [facility] multivitamin 1 TAB, PO, Daily, 0 Refill(s), Indication: Vitamin Supplement Active 08/22/2015 [facility] Testosterone Cypionate 100 mg/mL intramuscular solutio n = 1 mL, IM, Q4WEEK (Every 4 weeks), 0 Refill(s), HRT, Indication: Other - See Special InstructionsSpecial Instructions: HRT Active 08/22/2015 [facility] 3 ML insulin detemir 100 UNT/ML Prefille d Syringe [Levemir] 80 UNITS, Subcut, QHS (At bedtime), 0 Re fill(s), Indication: Diabetes Active 08/22/2015 [facility] Insulin, Aspart, Human 20 Unit =, Subcut, ACBD (Before breakfast and dinner), 0 Refill(s), Indication: Diabetes Active 08/22/2015 [facility] 3 ML insulin detemir 100 UNT/ML Prefille d Syringe [Levemir] 70 UNITS, Subcut, Daily, 0 Refill(s), In dication: Diabetes Active 08/22/2015 [facility] pioglitazone 30 mg oral tablet 1 TAB, PO, Daily, 0 Refill(s), Indication: Diabetes Active 08/22/2015 [facility] benazepril 10 mg oral tablet 1 TAB, PO, Daily, 0 Refill(s), Indication: High Blood Pressure Active 08/22/2015 [facility] glipiZIDE 10 mg oral tablet 1 TAB, PO, Daily, 0 Refill(s), Indication: Diabetes Active 08/22/2015 [facility] metFORMIN 1000 mg oral tablet 1 TAB, PO, BID (2 times a day), 0 Refill(s), Indication: Diabetes Active 08/22/2015 [facility] Drug Treatment Unknown Active [facility] Allergies, Adverse Reactions, Alerts Substance Category Reaction Severity Reaction type Status Date Reported Comments Source penicillin Assertion Drug allergy Active [facility] [place], [facility] penicillin Assertion Drug allergy Active [facility] Immunizations Immunization Date Given Site Status Last Updated Comments Source Unknown completed [facility] Results Order Name Results Value Reference Range Date Interpretation Comments Source CHEMISTRY Creatinine POC 1.2 mg /dL 0.5 - 1.5 12/11/2015 Result Comment: Meter ID: [id number]
Ope rator: [id number] [facility] ISTAT SMM Creatinine POC 1.2 mg /dL 0.5 - 1.5 12/11/2015 N Meter ID: [id number]
Bathroom Tiling Professional: [id number] [facility] CHEMISTRY Glucose Level (POC) 117 mg /dL 70 - 100 09/05/2015 Result Comment: Meter ID: [id number]<b r/>Bathroom Tiling Professional: [id number] [facility] Glucose WB POC SMM Glucose Level (PO C) 117 mg/dL 70 - 100 09/05/2015 H Meter ID: [id number]
O perator: [id number] SULMA STORM
[facility] Glucose WB POC SMM Glucose Level (PO C) 120 mg/dL 70 - 100 09/05/2015 H Meter ID: [id number]
O perator: [id number] LINN NARVAEZ
[facility] Glucose WB POC SMM Glucose Level (PO C) 141 mg/dL 70 - 100 09/04/2015 H Meter ID: [id number]
O perator: [phone] LINN NARVAEZ
[facility] Glucose WB POC SMM Glucose Level (PO C) 177 mg/dL 70 - 100 09/04/2015 H Meter ID: [id number]
O perator: [id number] EMELYN VEGA
[facility] Glucose WB POC SMM Glucose Level (PO C) 109 mg/dL 70 - 100 09/04/2015 H Meter ID: [id number]
O perator: [id number] EMELYN VEGA
[facility] Glucose WB POC SMM Glucose Level (PO C) 145 mg/dL 70 - 100 09/04/2015 H Meter ID: [id number]
O perator: [phone] CARMONALUIS BRASHER
[facility] HgbA1c Hgb A1c 8.4 % 0.0 - 5.6 09/04/2015 H Prediabetic: 5.7-6.4%

Very High Risk: 6.0-6.4%

Diabetic: >/= 6.5%
[facility] HgbA1c Estimated Average Glucose 194 mg/dL 09/04/2015 NA [facility] CHEMISTRY Calcium 8.9 mg/dL 8.6 - 10.2 09/03/2015 [facility] CHEMISTRY Creatinine 1.0 mg/dL 0.7 - 1.2 09/03/2015 [facility] CHEMISTRY CO2 26 mmol/L 22 - 29 09/03/2015 [facility] CHEMISTRY AGAP 12 mmol/L 3 - 19 09/03/2015 [facility] CHEMISTRY Glucose 229 mg/dL 70 - 100 09/03/2015 [facility] er CHEMISTRY BUN 22 mg/dL 8 - 20 09/03/2015 [facility] CHEMISTRY Sodium 138 mmol/L 136 - 145 09/03/2015 [facility] CHEMISTRY Potassium 5.5 mmol/L 3.5 - 5.1 09/03/2015 [facility] CHEMISTRY Chloride 100 mmol/L 98 - 107 09/03/2015 [facility] CHEMISTRY GFR (CKD-EPI) 79.3 m [...] mL/min/1.73 m^2
Kidney Failure <15 mL/min/1.73 m^2 [facility] CHEMISTRY Est CrCL (CG) 69.5 m L/min 09/03/2015 Result Comment: Estimated Creatinine Clint arance calculated based on the Cockcroft-Gault formula. [facility] CHEMISTRY Hgb A1c 8.4 % 0.0 - 5.6 09/03/2015 [facility] CHEMISTRY Estimated Average Glucose 194 mg/dL 09/03/2015 [facility] Glucose WB POC SMM Glucose Level (PO C) 203 mg/dL 70 - 100 09/03/2015 H Meter ID: [id number]
O perator: [phone] MATHEW BRASHER
[facility] Glucose WB POC SMM Glucose Level (PO C) 239 mg/dL 70 - 100 09/03/2015 H Meter ID: [id number]
O perator: [id number] EMELYN VEGA
[facility] Renal Funct Index GFR (CKD-EPI) 79.3 mL/min/1.73 m2 09/03/2015 NA GFR calculated based on CKD -EPI Creatinine Equation (2009).
Age(years) Average GFR
20-29 116 mL/min/1.73 m^2
30-39 107 mL/min/1.73 m^2
40-49 99 mL/min/1.73 m^2
50-59 93 mL/min/1.73 m^2
60-69 85 mL/min/1.73 m^2
70+ 75 mL/min/1.73 m^2

Acceptable GFR =>60 mL/min/1.73 m^2
Chronic Kidney Disease <60 mL/min/1.73 m^2
Kidney Failure <15 mL/min/1.73 m^2
[facility] BMP Sodium 138 mmol/L 136 - 145 09/03/2015 N [facility] BMP Potassium 5.5 mmol/L 3.5 - 5.1 09/03/2015 H [facility] BMP Chloride 100 mmol/L 98 - 107 09/03/2015 N [facility] BMP CO2 26 mmol/L 22 - 29 09/03/2015 N [facility] BMP AGAP 12 mmol/L 3 - 19 09/03/2015 N [facility] BMP Glucose 229 mg/dL 70 - 100 09/03/2015 H [facility] BMP BUN 22 mg/dL 8 - 20 09/03/2015 H [facility] BMP Creatinine 1.0 mg/dL 0.7 - 1.2 09/03/2015 N The presence of ketone bodies can cause artificially high results in serum, plasma and urine.
[facility] BMP Calcium 8.9 mg/dL 8.6 - 10.2 09/03/2015 N [facility] Glucose WB POC SMM Glucose Level (PO C) 152 mg/dL 70 - 100 09/03/2015 H Meter ID: [id number]
O perator: [id number] QASIM BUSTAMANTESSE
[facility] Glucose WB POC SMM Glucose Level (PO C) 178 mg/dL 70 - 100 09/03/2015 H Meter ID: [id number]
O perator: [id number] QASIM BUSTAMANTESSE
[facility] Glucose WB POC SMM Glucose Level (PO C) 229 mg/dL 70 - 100 09/03/2015 H Meter ID: [id number]
Op erator: [id number] OZZY MADDEN
[facility] Unknown UNK [facility] No data available for this section No data available for this section [facility] [place] No data available for this section No data available for this section [facility] Pathology Reports No Data Provided for This Section Diagnostic Reports Report Value Date Source MR Spine Lumbar W/WO Cont [address] [address] Radiology Reports CPT Codes: 48618, A9585 CDM Codes: 9026353 (MR Spine Lumbar W/WO Cont), 0578136 (C Contrast Gadavist Per 1/10 ML) Reason [...] abut the cauda equina. There TUAN FAN [id number] Radiology Reports is severe bilateral facet arthropathy [...] Dictated 12/11/2015 17:28 Signing [place] Location [id number] Final Transcribed by: ARUN 12/11/15 17:47 Signed by: EL CAST MD 12/11/15 17:47 12/11/2015 [facility] Consultation Notes Results Value Date Source Operative Report Operative Rep ort DATE OF 1945 SURGEON Mike Vasquez MD [employer] Lul Torres, [facility] PREOPERATIVE DIAGNOSIS L3-L4 stenosis. POSTOPERATIVE DIAGNOSIS L3-L4 [...] the root and the dura with a Hockley and decompressing the root well down into [...] C.T. C.T. E: 09/03/2015 12:37 C.T./ Conf# [id number] Doc#: [id number] cc: 09/03/2015 [facility] Discharge Summaries No Data Provided for [...] C.T. C.T. E: 09/01/2015 11:13 C.T./ Conf# [id number] Doc#: [id number] cc: 09/01/2015 [facility] Vital Signs Vital Sign Value Date Comments Source Pulse Equipment SPO2 (09/05/15 6 :54 AM) 09/05/2015 [facility] Heart Rate 110 bpm 09/05/2015 [facility] Temp Method Oral (09/05/15 6:53 AM) 09/05/2015 [facility] Temperature 97.6 [degF] 09/05/2015 [facility] Inet NIBP Systolic 148 mm[Hg] 09/05/2015 [facility] Inet NIBP Diastolic 82 mm[Hg] 09/05/2015 [facility] NIBP MAP 99 mm[Hg] 09/05/2015 [facility] Respiratory Rate 17 br/min 09/05/2015 [facility] BP Location Arm, left (09/04/15 6:52 AM) 09/04/2015 [facility] NIBP MAP Calc 111 09/03/2015 [facility] er Vital Signs Status/Type Routin e Assessment (09/03/15 3:05 PM) 09/03/2015 [facility] Heart Rhythm Interpretation Si nus/atrial rhythm (09/03/15 12:45 PM) 09/03/2015 [facility] Vital Signs Status Vital signs taken (09/03/15 12:15 PM) 09/03/2015 [facility] BP Cuff Size Large (09/03/15 12 :15 PM) 09/03/2015 [facility] NIBP Alarms set and on Yes ( 12:15 PM) 09/03/2015 [facility] Encounters Location Location Details Encounter Type Encounter Number Reason For Visit Attending Provider ADM Date DC Date Status Source 006 006 R [id number] MEG DA MONSON DO 04/20/2019 07/15/2019 [facility] [id number] MEG DA MONSON DO 05/09/2018 07/09/2018 Active [facility] [place] Recurring CPA [id number] ANGIE MONSON DO 12/01/2017 02/01/2018 [facility] [place] 006L 006L R [id number] MEG DA MONSON DO 12/01/2017 01/31/2018 Active [facility] Recurring CPA [id number] ANGIE MONSON DO 01/27/2017 03/30/2017 [facility] [place] Recurring CPA [id number] MIKE VASQUEZ MD 10/30/2016 12/31/2016 [facility] [place] 006L 006L R [id number] AARTI VASQUEZ MD 10/30/2016 12/30/2016 Active [facility] Recurring CPA [id number] MIKE VASQUEZ MD 06/05/2016 08/06/2016 [facility] Recurring CPA [id number] MIKE VASQUEZ MD 01/10/2016 05/07/2016 [facility] 006 006 O [id number] AARTI VASQUEZ MD 12/11/2015 12/11/2015 Active [facility] [id number] [facility] 09/05/2015 09/05/2015 [facility] [id number] [facility] 09/05/2015 09/05/2015 [facility] 006 006 O [id number] AARTI VASQUEZ MD 09/03/2015 09/05/2015 Active [facility] Procedures Procedure Code Date Perfomer Comments Source Consult Followup Visit<sup>1</sup> 05/15/2019 auto-populated from documented surgical case [facility] Inj:Lumbar Epi Steroid (Bilateral)<sup>2</sup> 04/20/2019 auto-populated from documented surgical case [facility] Inj:Lumbar Epi Steroid (Bilateral)<sup>1</sup> 05/09/2018 auto-populated from documented surgical case [facility] Inj:Lumbar Epi Steroid (Bilateral)<sup>1</sup> 12/01/2017 auto-populated from documented surgical case [facility] [place] Inj:Lumbar Epi Steroid<sup>1</sup> 12/22/2016 auto-populated from documented surgical case [facility] Inj:Lumbar Epi Steroid<sup>1</sup> 10/30/2016 auto-populated from documented surgical case [facility] [place] Consult Followup Visit<sup>1</sup> 06/05/2016 auto-populated from documented surgical case [facility] Inj:Lumbar Epi Steroid<sup>1</sup> 03/06/2016 auto-populated from documented surgical case [facility] Inj:Lumbar Epi Steroid<sup>2</sup> 02/03/2016 auto-populated from documented surgical case [facility] Inj:Lumbar Epi Steroid<sup>3</sup> 01/10/2016 auto-populated from documented surgical case [facility] Pain Management Initial Visit<sup>4</sup> 01/10/2016 auto- populated from documented surgical case [facility] TTE W/DOPPLER, COMPLETE [id number] 09/05/2015 [facility] Spine Laminectomy Lumbar Decompressive N euro<sup>1</sup> 09/03/2015 auto-populated from documented surgical case [facility] Unknown [facility] Plan of Care No Data Provided for This Section Social History Social History Date Source TypeDescriptionQuantityDate Captured Unknown 09/05/2015 [facility] Assessment and Plan No Data Provided for This Section Family History Value Date S ource Family MemberDiagnosisAge At Onset Unknown 09/05/2015 [facility] Advance Directives Order Name Results Value Date Source Advance Directives Advance Dir ectives DirectiveYes / NoEffective DateFile Name Unknown 09/05/2015 [facility] Functional Status No Data Provided for This Section
[2019-08-31] VITALS (18 sets, daily range): BP systolic 112–190; BP diastolic 61–122
[2019-08-31 06:05] LABS: BASOPHILS % (AUTO) 0 % (0-10); EOSINOPHILS # (AUTO) 1.8 10^3/uL (0.0-0.3); EOSINOPHILS % (AUTO) 19 % (0-10); HEMATOCRIT 41 % (40-54); HEMOGLOBIN 13.8 G/DL (13.3-17.7); LYMPHOCYTES # (AUTO) 2.7 X 10^3 (1.0-4.0); LYMPHOCYTES % (AUTO) 27 % (12-44); MEAN CORPUSCULAR HEMOGLOBIN 31 PG (25-34); MEAN CORPUSCULAR HGB CONC 34 G/DL (32-36); MEAN CORPUSCULAR VOLUME 91 FL (80-99); MEAN PLATELET VOLUME 10.7 FL (7.4-10.4); MONOCYTES # (AUTO) 0.8 X 10^3 (0.0-1.0); MONOCYTES % (AUTO) 8 % (0-12); NEUTROPHILS # (AUTO) 4.4 X 10^3 (1.8-7.8); NEUTROPHILS % (AUTO) 46 % (42-75); PLATELET COUNT 194 10^3/uL (130-400); RED CELL DISTRIBUTION WIDTH 14.9 % (10.0-14.5); WHITE BLOOD COUNT 9.7 10^3/uL (4.3-11.0)
[2019-08-31 06:30] LABS: ALANINE AMINOTRANSFERASE 21 U/L (0-55); ALBUMIN 3.6 GM/DL (3.2-4.5); ALKALINE PHOSPHATASE 70 U/L (40-136); BILIRUBIN,TOTAL 0.4 MG/DL (0.1-1.0); BUN/CREATININE RATIO 17; CARBON DIOXIDE 23 MMOL/L (21-32); CHLORIDE 108 MMOL/L (98-107); CREATININE SERUM 0.95 MG/DL (0.60-1.30); GFR ESTIMATED > 60; GLUCOSE 169 MG/DL (70-105); SODIUM 140 MMOL/L (135-145); TOTAL PROTEIN 6.2 GM/DL (6.4-8.2)
[2019-08-31] MEDS: inSUlin ASPART (NovoLOG) 1 UNIT/0.01 ML (CHARGE PER UNIT) SC SCH ×4 (06:59→21:12)
[2019-08-31] MEDS: CATHETER FLUSH 10 ML SYR IV SCH ×3 (06:59→21:15)
[2019-08-31] MEDS ORDERED: NS IV 1000 ML 1,000 ML ONE (08:17)
[2019-08-31] MEDS ORDERED: HEParin (CATH LAB) 2,000 ML IV ONE (08:17)
[2019-08-31] MEDS ORDERED: LIDOCAINE 1% INJ 20 ML 20 ML VIAL ONE (08:17)
[2019-08-31] MEDS ORDERED: MIDAZOLAM 5 MG/5 ML (VERSED) VIAL ONE (08:19)
[2019-08-31] MEDS ORDERED: fentaNYL INJECTION 100 MCG/2 ML AMP ONE (08:19)
[2019-08-31] MEDS: ASPIRIN E.C. 81 MG (ECOTRIN) TAB PO SCH (09:30)
[2019-08-31] MEDS ORDERED: HEParin 1000 UNIT/ML (10ML VIAL) FOR BOLUS ONE (09:43)
[2019-08-31] MEDS ORDERED: VERAPAMIL 5 MG/2 ML (CALAN) VIAL IV ONE (09:43)
[2019-08-31] MEDS ORDERED: NITRO DRIP 25000 MCG/D5W 250 ML IV ONE (09:43)
--- NOTE | 2019-08-31 09:57 | History & Physical ---
HPI History of Present Illness: 74 yo male came to the ER due to recurrent chest pain last night. He had a pain across his mid chest that occurred while he was sitting watching tv around 4 pm. At first he thought it was muscular because he had gone bowling the day before for the first time in a few months, and he took a baby aspirin and it went away in 20-30 minutes. However, around 6 pm, it occurred again, so he felt he should come in. He has continued to have intermittent times of pain, nitroglycerin did help. He denies fever, cough, but has had some itchy eyes and sneezing that he relates to allergies. 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 He admits loose light colored stools the last 2 days. In the ER he was found to have slightly elevated troponin and no acute EKG changes so he was admitted and started on anticoagulation and Cardiology consulted. Source: patient Exam Limitations: no limitations Date seen by provider: August 31, 2019 Time Seen by Provider: 08:55 Attending Physician Dominick Myers MD PCP Emily Amaral DO Consult Date of Admission August 30, 2019 at 20:44 Home Medications Home Medications Reviewed patient Home Medication Reconciliation performed by pharmacy medication reconciliations radio tower technician and/or nursing. Patients Allergies have been reviewed. Allergies Coded Allergies: Penicillins (Unverified Allergy, Unknown, FROM CHILDHOOD, 05/16/19) LDE-Mqibzq-Mynfab Hx Patient Social History Alcohol Use: Denies Use Recreational Drug Use: No Smoking Status: Never a Smoker 2nd Hand Smoke Exposure: No Recent Foreign Travel: No Contact w/other who traveled: No Recent Hopitalizations: No Recent Infectious Disease Expo: No Immunizations Up To Date Date of Pneumonia Vaccine: Mar 19, 2011 Date of Influenza Vaccine: Jan 09, 2019 Past Medical History PMHx: DMII HTN Chronic back pain SurgHx: Back surgery Family Medical History Significant Family History: Heart Disease, CAD Over 55 Years Old Review of Systems ([facility]C) Constitutional: No fever EENTM: No nose congestion, No throat pain Respiratory: No cough, No short of breath Cardiovascular: see HPI Gastrointestinal: No abdominal pain, No constipation, No nausea, No vomiting Genitourinary: No dysuria Musculoskeletal: joint pain (baseline) Skin: No rash Reviewed Test Results Reviewed Test Results Lab Laboratory Tests Test 08/30/19 19:59 08/31/19 00:50 08/31/19 05:54 Range/Units White Blood Count 11.1 H 9.7 4.3-11.0 10^3/uL Red Blood Count 4.84 4.52 4.35-5.85 10^6/uL Hemoglobin 14.6 13.8 13.3-17.7 G/DL Hematocrit 44 41 40-54 % Mean Corpuscular Volume 90 91 80-99 FL Mean Corpuscular Hemoglobin 30 31 25-34 PG Mean Corpuscular Hemoglobin Concent 33 34 32-36 G/DL Red Cell Distribution Width 15.2 H 14.9 H 10.0-14.5 % Platelet Count 230 194 130-400 10^3/uL Mean Platelet Volume 10.8 H 10.7 H 7.4-10.4 FL Neutrophils (%) (Auto) 49 46 42-75 % Lymphocytes (%) (Auto) 25 27 12-44 % Monocytes (%) (Auto) 10 8 0-12 % Eosinophils (%) (Auto) 16 H 19 H 0-10 % Basophils (%) (Auto) 0 0 0-10 % Neutrophils # (Auto) 5.4 4.4 1.8-7.8 X 10^3 Lymphocytes # (Auto) 2.7 2.7 1.0-4.0 X 10^3 Monocytes # (Auto) 1.1 H 0.8 0.0-1.0 X 10^3 Eosinophils # (Auto) 1.8 H 1.8 H 0.0-0.3 10^3/uL Basophils # (Auto) 0.0 0.0 0.0-0.1 10^3/uL Neutrophils % (Manual) 53 % Lymphocytes % (Manual) 28 % Monocytes % (Manual) 8 % Eosinophils % (Manual) 11 % Blood Morphology Comment NORMAL Prothrombin Time 14.0 12.2-14.7 SEC INR Comment 1.0 0.8-1.4 Activated Partial Thromboplast Time 31 24-35 SEC Sodium Level 140 140 135-145 MMOL/L Potassium Level 4.0 4.0 3.6-5.0 MMOL/L Chloride Level 109 H 108 H 98-107 MMOL/L Carbon Dioxide Level 19 L 23 21-32 MMOL/L Anion Gap 12 9 5-14 MMOL/L Blood Urea Nitrogen 17 16 7-18 MG/DL Creatinine 0.96 0.95 0.60-1.30 MG/DL Estimat Glomerular Filtration Rate > 60 > 60 BUN/Creatinine Ratio 18 17 Glucose Level 87 169 H 70-105 MG/DL Calcium Level 9.7 9.0 8.5-10.1 MG/DL Corrected Calcium 9.6 9.3 8.5-10.1 MG/DL Magnesium Level 1.8 1.6-2.4 MG/DL Total Bilirubin 0.3 0.4 0.1-1.0 MG/DL Aspartate Amino Transf (AST/SGOT) 24 27 5-34 U/L Alanine Aminotransferase (ALT/SGPT) 26 21 0-55 U/L Alkaline Phosphatase 79 70 40-136 U/L Myoglobin 102.6 H 10.0-92.0 NG/ML Troponin I 0.072 H 0.767 *H 2.048 *H <0.028 NG/ML B-Type Natriuretic Peptide 137.3 H <100.0 PG/ML Total Protein 7.0 6.2 L 6.4-8.2 GM/DL Albumin 4.1 3.6 3.2-4.5 GM/DL Lipase 27 8-78 U/L Triglycerides Level 150 H <150 MG/DL Cholesterol Level 142 < 200 MG/DL LDL Cholesterol Direct 101 1-129 MG/DL VLDL Cholesterol 30 5-40 MG/DL HDL Cholesterol 31 L 40-60 MG/DL Radiology CXR 08/29: IMPRESSION: Chronic benign subcentimeter left lung nodule, no change from priors. No acute finding. Physical Exam-([facility]) Physical Exam Vital Signs VS - Last 72 Hours, by Label 08/30/19 08/30/19 08/30/19 08/30/19 19:45 20:03 21:18 21:30 Temp 37.2 37.2 Pulse 90 89 87 Resp 19 19 B/P (MAP) 189/99 (129) 149/89 (129) 131/64 (86) Pulse Ox 99 99 O2 Delivery Room Air Room Air Room Air Room Air 08/30/19 08/30/19 08/30/19 08/30/19 21:37 21:45 21:53 22:00 Temp 36.1 Pulse 96 87 100 Resp 20 B/P (MAP) 119/69 (86) 119/69 Pulse Ox 98 O2 Delivery Room Air Room Air Room Air 08/30/19 08/30/19 08/30/19 08/30/19 22:00 22:15 22:45 23:15 Pulse 87 89 89 88 B/P (MAP) 114/36 (62) 115/72 (86) 113/62 (79) 110/73 (85) O2 Delivery Room Air Room Air Room Air Room Air 08/31/19 08/31/19 08/31/19 08/31/19 00:00 01:00 04:00 04:00 Pulse 94 74 B/P (MAP) 137/90 (106) O2 Delivery Room Air Room Air Room Air 08/31/19 08/31/19 08/31/19 08:00 08:00 08:50 Temp 36.4 Pulse 93 B/P (MAP) 144/81 (102) O2 Delivery Room Air Room Air Room Air Capillary Refill : Less Than 3 Seconds General Appearance: WD/WN, no apparent distress Respiratory: lungs clear, normal breath sounds Cardiovascular: regular rate, rhythm, no murmur Gastrointestinal: normal bowel sounds, non tender, soft Extremities: no pedal edema Neurologic/Psychiatric: alert, normal mood/affect Skin: normal color, warm/dry Assessment/Plan Assessment/Plan Admission Status: Inpatient Order (span 2 midnights) Reason for Inpatient Admission: Elevated troponin with underlying diabetes high risk for complications (1) Elevated troponin Status: Acute Assessment & Plan: Trending up, appreciate Cardiology recommendations, plan for cardiac cath this morning. Given Brilinta, ASA and enoxaparin last night (2) Chest pain Status: Acute Qualifiers: Qualified Codes: R07.9 - Chest pain, unspecified (3) Diabetes mellitus, type 2 Status: Chronic Assessment & Plan: On high dose insulin at home, as well as glipizide, metformin and pioglitazone. Given heart concerns, will hold pioglitazone and likely d/c. Will be receiving contrast for cath, hold metformin. Hold glipizide and insulin while NPO, sliding scale insulin. No home statin reported and no documentation of intolerance, will start. Qualifiers: Qualified Codes: E11.65 - Type 2 diabetes mellitus with hyperglycemia; Z79.4 - USP (current) use of insulin (4) Hypertension Status: Chronic Assessment & Plan: Resume home benazapril. Qualifiers: Qualified Codes: I10 - Essential (primary) hypertension (5) DVT prophylaxis Status: Acute Assessment & Plan: Enoxaparin given yesterday, will re-evaluate after cath. Clinical Quality Measures AMI/AHF: ASA po Prior to arrival: Yes ("1/2") DVT/VTE Risk/Contraindication: Risk Factor Score Per Nursin RFS Level Per Nursing on Admit: 3=High DOMINICK MYERS MD August 31, 2019 09:57
[2019-08-31] MEDS ORDERED: INSU100I14 SQ (10:06)
[2019-08-31] MEDS ORDERED: BENA20TA7 PO (10:06)
[2019-08-31] MEDS ORDERED: FLUT9.9S NSEACH (10:06)
[2019-08-31] MEDS ORDERED: TICAGRELOR 90 MG TABLET (BRILINTA) PO ONE (10:20)
[2019-08-31] MEDS ORDERED: ONDANSETRON 4 MG/2 ML (SDV) Z0FRAN ONE (11:01)
[2019-08-31] MEDS ORDERED: meTOprolol 5 MG/5 ML (LOPRESSOR) VIAL ONE (11:21)
--- NOTE | 2019-08-31 11:50 | Consultation-Cardiology ---
HPI-Cardiology Cardiology Consultation: Date of Consultation 08/31/19 Date of Admission Attending Physician Kelli Myers MD Admitting Physician Emily Amaral DO Consulting Physician Zoey BOONE MD HPI: Time Seen by a Provider: 09:20 Chief Complaint: Chest pain This is a 74-year-old gentleman who presented with prolonged episode of chest pain. He has history of diabetes. He denies active smoking. Positive family history. Substernal. No associated cardiac symptoms. No significant radiation. No exacerbating or relieving factors. Moderate intensity. Review of Systems-Cardiology Review of Systems Constitutional: As described under HPI; No As described under HPI, No no symptoms reported, No chills, No fever, No lightheadedness Eyes: No As described under HPI, No no symptoms reported, No blindness, No blurred vision, No contact lenses, No drainage, No decreased acuity, No foreign body sensation, No pain, No vision change Ears/Nose/Throat: No As described under HPI, No no symptoms reported, No chronic hearing loss, No ear discharge, No ear pain, No nasal drainage, No ulcerations Respiratory: No no symptoms reported; As described under HPI; No As described under HPI, No cough, No orthopnea, No shortness of breath, No SOB with excertion Cardiovascular: No no symptoms reported; As described under HPI; No As described under HPI; chest pain; No edema, No irregular heart rate, No lightheadedness, No palpitations Gastrointestinal: No no symptoms reported, No As described under HPI, No abdomen distended, No abdominal pain, No blood streaked bowels, No constipation, No diarrhea, No nausea, No vomiting, No stool coloration changes Genitourinary: No As described under HPI, No burning, No dysuria, No discharge, No frequency, No flank pain, No hematuria, No urgency Skin: No rash, No skin related problems, No ulcerations Psychiatric/Neurological: No anxiety, No depression, No seizure, No focal weakness, No syncope Hematologic: No bleeding abnormalities [id number] Hx Patient Social History Alcohol Use: Denies Use Recreational Drug Use: No Smoking Status: Never a Smoker 2nd Hand Smoke Exposure: No Recent Foreign Travel: No Recent Infectious Disease Expo: No Hospitalization with Isolation: Denies Immunizations Up To Date Date of Pneumonia Vaccine: Mar 19, 2011 Date of Influenza Vaccine: Jan 09, 2019 Past Medical History PMH As described under Assessment. Allergies and Home Medications Allergies Coded Allergies: Penicillins (Unverified Allergy, Unknown, FROM CHILDHOOD, 05/16/19) Home Medications Benazepril HCl 20 Mg Tablet, 20 MG PO DAILY, (Reported) Cholecalciferol (Vitamin D3) 2,000 Unit Tablet, 2,000 UNIT PO DAILY, (Reported) Fluticasone Propionate 9.9 Ml [place].susp, 1 SPRAY NS DAILY, (Reported) 1 SPRAY EACH NARE DAILY Gabapentin 600 Mg Tablet, 600 MG PO TID, (Reported) Glipizide 10 Mg Tablet, 10 MG PO DAILY, (Reported) Insulin Aspart 300 Units/3 Ml Solution, 20 UNITS SQ BID, (Reported) Insulin Determir 1,000 Units/10 Ml Soln, 80 UNITS SQ BID, (Reported) Metformin HCl 1,000 Mg Tablet, 1,000 MG PO BID, (Reported) Multivitamin 1 Each Tablet, 1 EACH PO DAILY, (Reported) Pioglitazone HCl 30 Mg Tablet, 30 MG PO DAILY, (Reported) Testosterone Cypionate 100 Mg/1 Ml Vial, 100 MG IM MONTHLY, (Reported) Patient Home Medication List Home Medication List Reviewed: Yes Physical Exam-Cardiology Physical Exam Vital Signs/I&O 08/31/19 08/31/19 08/31/19 08/31/19 01:00 04:00 04:00 08:00 Pulse 94 74 B/P (MAP) 137/90 (106) O2 Delivery Room Air Room Air Room Air 08/31/19 08/31/19 08:00 08:50 Temp 36.4 Pulse 93 B/P (MAP) 144/81 (102) O2 Delivery Room Air Room Air 08/31/19 00:00 Intake Total 100 ml Output Total 0 ml Balance 100 ml Capillary Refill : Less Than 3 Seconds Constitutional: appears stated age, AAO x 3; No apparent distress; well- developed, well-nourished HEENT: PERRL; No discharge; hearing is well preserved, oral hygience is good; No ulceration, No xanthelasmas are seen Neck: No carotid bruit; carotid pulses are 2 + bilaterally Respiratory: chest is bilaterally symmetric, lungs clear to auscultation Cardiovascular: regular rate-rhythm, S1 and S2; No diastolic murmur, No systolic murmur Gastrointestinal: soft, audible bowel sounds; No spleenomegaly Rectal: deferred Extremities: normal range of motion, non-tender, normal inspection; No clubbing, No cyanosis; no lower extremity edema bilateral; No significant edema Neurologic/Psychiatric: no motor/sensory deficits, alert, normal mood/affect, oriented x 3, power is 5/5 both on sides Skin: normal color, warm/dry; No rash, No ulcerations Data Review Labs Laboratory Tests 08/30/19 19:59: White Blood Count 11.1H, Red Blood Count 4.84, Hemoglobin 14.6, Hematocrit 44, Mean Corpuscular Volume 90, Mean Corpuscular Hemoglobin 30, Mean Corpuscular Hemoglobin Concent 33, Red Cell Distribution Width 15.2H, Platelet Count 230, Mean Platelet Volume 10.8H, Neutrophils (%) (Auto) 49, Lymphocytes (%) (Auto) 25, Monocytes (%) (Auto) 10, Eosinophils (%) (Auto) 16H, Basophils (%) (Auto) 0, Neutrophils # (Auto) 5.4, Lymphocytes # (Auto) 2.7, Monocytes # (Auto) 1.1H, Eosinophils # (Auto) 1.8H, Basophils # (Auto) 0.0, Neutrophils % (Manual) 53, Lymphocytes % (Manual) 28, Monocytes % (Manual) 8, Eosinophils % (Manual) 11, Blood Morphology Comment NORMAL, Prothrombin Time 14.0, INR Comment 1.0, Activated Partial Thromboplast Time 31, Sodium Level 140, Potassium Level 4.0, Chloride Level 109H, Carbon Dioxide Level 19L, Anion Gap 12, Blood Urea Nitrogen 17, Creatinine 0.96, Estimat Glomerular Filtration Rate > 60, BUN/Creatinine Ratio 18, Glucose Level 87, Calcium Level 9.7, Corrected Calcium 9.6, Magnesium Level 1.8, Total Bilirubin 0.3, Aspartate Amino Transf (AST/SGOT) 24, Alanine Aminotransferase (ALT/SGPT) 26, Alkaline Phosphatase 79, Myoglobin 102.6H, Troponin I 0.072H, B-Type Natriuretic Peptide 137.3H, Total Protein 7.0, Albumin 4.1, Lipase 27 08/31/19 00:50: Troponin I 0.767*H 08/31/19 05:54: White Blood Count 9.7, Red Blood Count 4.52, Hemoglobin 13.8, Hematocrit 41, Mean Corpuscular Volume 91, Mean Corpuscular Hemoglobin 31, Mean Corpuscular Hemoglobin Concent 34, Red Cell Distribution Width 14.9H, Platelet Count 194, Mean Platelet Volume 10.7H, Neutrophils (%) (Auto) 46, Lymphocytes (%) (Auto) 27, Monocytes (%) (Auto) 8, Eosinophils (%) (Auto) 19H, Basophils (%) (Auto) 0, Neutrophils # (Auto) 4.4, Lymphocytes # (Auto) 2.7, Monocytes # (Auto) 0.8, Eosinophils # (Auto) 1.8H, Basophils # (Auto) 0.0, Sodium Level 140, Potassium Level 4.0, Chloride Level 108H, Carbon Dioxide Level 23, Anion Gap 9, Blood Urea Nitrogen 16, Creatinine 0.95, Estimat Glomerular Filtration Rate > 60, BUN/Creatinine Ratio 17, Glucose Level 169H, Calcium Level 9.0, Corrected Calcium 9.3, Total Bilirubin 0.4, Aspartate Amino Transf (AST/SGOT) 27, Alanine Aminotransferase (ALT/SGPT) 21, Alkaline Phosphatase 70, Troponin I 2.048*H, Total Protein 6.2L, Albumin 3.6, Triglycerides Level 150H, Cholesterol Level 142, LDL Cholesterol Direct 101, VLDL Cholesterol 30, HDL Cholesterol 31L 08/31/19 11:30: Glucometer 192H ECG Impression ECG Initial ECG Rhythm: Normal Sinus, PVC Initial ECG Impression: Nonspecific Changes A/P-Cardiology Assessment/Admission Diagnosis Non-STEMI, PVCs, Diabetes, Hypertension, Hyperlipidemia Plan Non-STEMI, discussed at length with the patient and coronary angiography was recommended. All risks and complication were explained in detail. 1-2 percent risk of vascular damage, heart damage, stroke, and even was discussed. Patient accepted all risks and complication and wanted to proceed with the procedure. Patient received aspirin and Brilinta bolus last night. Patient also received Lovenox last night. PVCs, will start beta blockers. Diabetes, deferred to the primary team. Hypertension, stable. Hyperlipidemia, high-dose statin therapy is recommended. Thank you for your consultation. Please call me if you have any questions. Annamarie Boone MD, FACP, FACC, FSCAI, FHRS, CCDS Interventional Cardiology Cardiac Electrophysiology Vascular Medicine and Endovascular Interventions Clinical Quality Measures AMI/AHF: ASA po Prior to arrival: Yes ("1/2") DVT/VTE Risk/Contraindication: Risk Factor Score Per Nursin RFS Level Per Nursing on Admit: 3=High Zoey BOONE MD August 31, 2019 11:50
--- NOTE | 2019-08-31 11:51 | Cardiac Procedure Note-CS/ASA ---
Pre-Procedure Note Pre-Op Procedure Note H&P Reviewed The H&P was reviewed, patient examined and no changes noted. Date H&P Reviewed: August 31, 2019 Time H&P Reviewed: 09:20 Conscious Sedation Pre-Proced Time 09:20 ASA Score 3 For ASA 3 and 4: Consider anesthesia and medical clearance. Also, for patients with a history of failed moderate sedation consider anesthesia. Airway Lungs Heart ASA score ASA 1: a normal healthy patient ASA 2: a patient with a mild systemic disease (mid diabetes, controlled hypertension, obesity ASA 3: a patient with a severe systemic disease that limits activity (angina, COPD, prior Myocardial infarction) ASA 4: a patient with an incapacitating disease that is a constant threat to life (CHF, renal failure) ASA 5: a moribund patient not expected to survive 24 hrs. (ruptured aneurysm) ASA 6: a declared brain- patient whose organs are being harvested. For emergent operations, add the letter E after the classification Mallampati Classification Grade 1 Sedation Plan Analgesia, Amnesia, Plan communicated to team members, Discussed options with patient/fam, Discussed risks with patient/fam The patient is an appropriate candidate to undergo the planned procedure, sedation, and anesthesia. The patient immediately re-assessed prior to indication. Zoey REARDON MD August 31, 2019 11:51
--- NOTE | 2019-08-31 11:52 | Coronary Angiography & PCI ---
Coronary Angiography & PCI DATE OF PROCEDURE: 08/31/19 INDICATION: Non-STEMI. PREOPERATIVE DIAGNOSIS: Non-STEMI POSTOPERATIVE DIAGNOSIS: Non-STEMI; PCI with drug-eluting stent to mid RCA. HISTORY: This is a 74-year-old gentleman with obesity, type I diabetes who presented with chest pain for 30 minutes. Positive cardiac enzymes. Therefore, the patient was scheduled for coronary angiography. PROCEDURES PERFORMED: 1.Coronary angiography. 2.Left heart catheterization. 3.PCI to the mid RCA with drug-eluting stent. COMPLICATIONS: None. SPECIMENS: None. ESTIMATED BLOOD LOSS: 10 mL ANESTHESIA: Conscious sedation ANTICOAGULATION: IV heparin CONTRAST: 170 mL. FLUOROSCOPY: 25.8 minutes. FLOUROSCOPY DOSE: [id number] mgy. PROCEDURE DETAILS: The patient is a 74 male and was brought to the bundle tier and labeler after informed consent was taken. All the risks and complications were explained in detail; this included the risk of bleeding, vascular damage, stroke, UT and even . The patient was draped and prepped in the usual sterile fashion. Access was gained in the right radial artery with a 6 [place] sheath. Coronary angiography and left heart catheterization was performed with the Holliday catheter. FINDINGS: 1.Left main: Patent. 2.LAD: Severe mid LAD stenosis with diffuse distal disease. Heavy calcification noted in the proximal segment. The first diagonal artery has diffuse disease 2. 3.Left circumflex artery: Moderate proximal stenosis of a large first OM artery. Mild to moderate disease in the AV groove artery. 4.RCA: Ostial calcification. Mild proximal disease. Severe calcified stenosis in the mid RCA. 5.Left heart catheterization: LV pressure 103/8 mmHg. LVEDP 22 mmHg. Aortic pressure 125/73 mmHg. Normal LV function with no wall motion abnormalities. Preserved LV function. RECOMMENDATIONS: PCI to mid RCA is recommended. PCI to the LAD is recommended. INTERVENTION DETAILS: JR4 guide catheter, IV heparin for anticoagulation, BMW guidewire. ACT was 231 seconds. We crossed the lesion with some difficulty with the BMW wire and placed it in the PDA. We were not able to direct stent because he could not ad doherty the stent in the midsegment. A whisper extra-support wire was placed as a pretty wire. Therefore we took an emerge 2.5 x 15 mm balloon and did balloon angioplasty in the mid RCA. However we were still not able to cross the lesion with the stent. Therefore we put a guide liner in the proximal RCA and hold the BMW wire out. With difficulty we were able to advance a stent to the lesion and deployed it at 16 jo for 25 seconds. Postdilatation was done with an NC Quantum 3.5 x 12 mm noncompliant balloon. 4 inflations were done in the entire stented segment at 14 jo for 15 seconds, 16 jo for 16 seconds, 16 jo for 12 seconds, 16 jo for 7 seconds. Excellent angiographic results. During the end of the procedure the patient had an episode of sweating and hypertension. We gave the patient metoprolol and nitroglycerin which brought the blood pressure and heart rate within normal limits. The patient was feeling much better. He was transferred with stable vital signs. CONCLUSIONS: 1. Non-STEMI; severe two-vessel disease in the mid LAD and mid RCA. PCI with drug-eluting stent done to the mid RCA. 2. Dual antiplatelet therapy for at least 1 year. Aggressive secondary prevention measures. 3. Consider staged PCI to the mid LAD tomorrow. Annamarie Boone MD, FACP, FACC, [facility] Interventional Cardiology Zoey BOONE MD August 31, 2019 11:52
[2019-08-31] MEDS ORDERED: PATIENT MAY USE OWN MEDS, ALL PO SCH (12:00)
[2019-08-31] MEDS: NS IV 1000 ML 1,000 ML IV SCH ×2 (12:13→21:15)
[2019-08-31] MEDS ORDERED: FUROSEMIDE 40 MG/4 ML INJ (LASIX) IVP STA (12:49)
[2019-08-31] MEDS ORDERED: ENOXAPARIN 100 MG/1 ML (LOVENOX) SYR SC ONE (18:05)
[2019-08-31] MEDS: meTOprolol SUCCINATE 100 MG (TOPROL XL) TAB PO SCH (18:41)
[2019-08-31] MEDS: ENOXAPARIN 300 MG/3 ML (LOVENOX) MULTI-DOSE VIAL SQ SCH (18:46)
[2019-08-31] MEDS ORDERED: lisINopril 20 MG (PRINIVIL) TABLET PO ONE (19:00)
[2019-08-31] MEDS: TICAGRELOR 90 MG TABLET (BRILINTA) PO SCH (21:13)
[2019-08-31] MEDS ORDERED: ZOLPIDEM 5 MG (AMBIEN) TAB ONE (23:10)
[2019-08-31] MEDS: ZOLPIDEM 5 MG (AMBIEN) TAB PO PRN (23:19)
--- NOTE | 2019-08-31 23:20 | NUR ---
Pt c/o not being able to sleep. Denies pain. notified and new order received. Ambien 5mg po given.
[2019-09-01] VITALS (29 sets, daily range): BP systolic 94–152; BP diastolic 47–94
[2019-09-01 03:44] LABS: MEAN PLATELET VOLUME 11.4 FL (7.4-10.4); RED CELL DISTRIBUTION WIDTH 15.1 % (10.0-14.5); WHITE BLOOD COUNT 11.4 10^3/uL (4.3-11.0)
[2019-09-01 04:01] LABS: CHLORIDE 104 MMOL/L (98-107); SODIUM 136 MMOL/L (135-145)
[2019-09-01 04:02] LABS: CALCIUM 8.9 MG/DL (8.5-10.1)
[2019-09-01 04:03] LABS: GLUCOSE 193 MG/DL (70-105)
[2019-09-01 04:04] LABS: CARBON DIOXIDE 20 MMOL/L (21-32)
[2019-09-01 04:06] LABS: CREATININE SERUM 0.98 MG/DL (0.60-1.30); GFR ESTIMATED > 60
[2019-09-01 04:07] LABS: BUN/CREATININE RATIO 15
--- NOTE | 2019-09-01 04:31 | NUR ---
Dr. Boone notified of Troponin level.
[2019-09-01] MEDS ORDERED: ENOXAPARIN 40 MG/0.4 ML (LOVENOX) SYR ONE (05:45)
[2019-09-01] MEDS ORDERED: ENOXAPARIN 80 MG/0.8 ML (LOVENOX) SYR ONE (05:45)
[2019-09-01] MEDS: ENOXAPARIN 300 MG/3 ML (LOVENOX) MULTI-DOSE VIAL SQ SCH (05:57)
[2019-09-01] MEDS: inSUlin ASPART (NovoLOG) 1 UNIT/0.01 ML (CHARGE PER UNIT) SC SCH ×4 (05:57→21:00)
[2019-09-01] MEDS: NS IV 1000 ML 1,000 ML IV SCH ×3 (06:00→16:37)
[2019-09-01] MEDS: CATHETER FLUSH 10 ML SYR IV SCH ×3 (06:00→21:03)
[2019-09-01] MEDS ORDERED: fentaNYL INJECTION 100 MCG/2 ML AMP ONE (06:11)
[2019-09-01] MEDS ORDERED: LIDOCAINE 1% INJ 20 ML 20 ML VIAL ONE (06:11)
[2019-09-01] MEDS ORDERED: MIDAZOLAM 5 MG/5 ML (VERSED) VIAL ONE (06:11)
[2019-09-01] MEDS ORDERED: HEParin 1000 UNIT/ML (10ML VIAL) FOR BOLUS ONE (06:12)
[2019-09-01] MEDS ORDERED: NITRO DRIP 25000 MCG/D5W 0 ML IV ONE (06:12)
[2019-09-01] MEDS ORDERED: HEParin (CATH LAB) 2,000 ML IV ONE (06:12)
[2019-09-01] MEDS: TICAGRELOR 90 MG TABLET (BRILINTA) PO SCH ×2 (06:34→20:56)
[2019-09-01] MEDS: ASPIRIN E.C. 81 MG (ECOTRIN) TAB PO SCH (06:34)
--- NOTE | 2019-09-01 06:45 | NUR ---
Pt to label tacker at this time per bed.
--- NOTE | 2019-09-01 08:53 | Cardiology Progress Note ---
Cardiology SOAP Progress Note Subjective: events of overnight noted. Post pci patient had sweating and shortness of breath. His heart rate was 100bpm and blood pressure was over systolic 170 mmHg. was given metoprolol, lisinopril, morphine. No further symptoms. Objective: I&O/Vital Signs 08/31/19 08/31/19 09/01/19 09/01/19 22:00 23:00 00:00 00:00 Pulse 80 82 68 Resp 14 13 26 B/P (MAP) 130/90 (103) 128/86 (100) 118/75 (89) Pulse Ox 96 96 98 O2 Delivery Room Air Room Air Room Air Room Air 09/01/19 09/01/19 09/01/19 09/01/19 01:00 01:00 02:00 03:00 Pulse 72 84 77 78 Resp 21 14 21 B/P (MAP) 124/89 (101) 126/69 (88) 136/85 (102) Pulse Ox 95 95 96 O2 Delivery Room Air Room Air Room Air 09/01/19 09/01/19 09/01/19 09/01/19 04:00 04:00 04:00 05:00 Temp 36.2 Pulse 76 78 Resp 20 24 B/P (MAP) 120/68 (85) 137/80 (99) Pulse Ox 96 96 O2 Delivery Room Air Room Air Room Air 09/01/19 09/01/19 06:00 09:00 Pulse 71 73 Resp 13 16 B/P (MAP) 137/83 (101) 146/74 (98) Pulse Ox 97 94 O2 Delivery Room Air Room Air 09/01/19 00:00 Intake Total 720 ml Output Total 2200 ml Balance -1480 ml Weight (Pounds): 241 Weight (Ounces): 6.0 Weight (Calculated Kilograms): [id number] Constitutional: appears stated age, AAO x 3; No apparent distress; well- developed, well-nourished Respiratory: chest is bilaterally symmetric, lungs clear to auscultation Cardiovascular: regular rate-rhythm, S1 and S2; No diastolic murmur, No systolic murmur Gastrointestional: soft, audible bowel sounds; No spleenomegaly Extremities: normal range of motion, non-tender, normal inspection; No clubbing, No cyanosis; no lower extremity edema bilateral; No significant edema Neurologic/Psychiatric: no motor/sensory deficits, alert, normal mood/affect, oriented x 3, power is 5/5 both on sides Skin: normal color, warm/dry; No rash, No ulcerations Results/Procedures: Labs Laboratory Tests 08/31/19 11:30: Glucometer 192H 08/31/19 12:07: Glucometer 223H 08/31/19 13:00: Troponin I 1.457*H 08/31/19 15:54: Troponin I 2.362*H 08/31/19 16:25: Glucometer 308H 08/31/19 21:04: Glucometer 200H 09/01/19 03:00: White Blood Count 11.4H, Red Blood Count 4.63, Hemoglobin 14.0, Hematocrit 42, Mean Corpuscular Volume 91, Mean Corpuscular Hemoglobin 30, Mean Corpuscular Hemoglobin Concent 33, Red Cell Distribution Width 15.1H, Platelet Count 213, Mean Platelet Volume 11.4H, Sodium Level 136, Potassium Level 4.0, Chloride Level 104, Carbon Dioxide Level 20L, Anion Gap 12, Blood Urea Nitrogen 15, Creatinine 0.98, Estimat Glomerular Filtration Rate > 60, BUN/Creatinine Ratio 15, Glucose Level 193H, Calcium Level 8.9, Troponin I 22.962*H A/P: Assessment/Dx: Non-STEMI, PVCs, Diabetes, Hypertension, Hyperlipidemia, Dilated Ischemic Cardiomyopathy. Plan: Non-STEMI, coronary angiography done on 08/31/2019 showed severe focal stenosis in mid LAD and diffuse distal disease with small caliber artery. RCA has long severe stenosis in the midsegment. Elevated LVEDP. We intervened on the RCA which turned out to be a complicated PCI requiring 2 wires as well as a guide liner to get the stent down to the mid RCA. However excellent results in the end. Patient was given dual antiplatelet therapy. Patient had episode of sweating and shortness of breath. This was post PCI. EKG did not reveal any significant ST elevation. His heart rate was 100 bpm and blood pressure was over 170 mmHg systolic. We had given intra-arterial nitroglycerin as well as intravenous metoprolol. Due to rising troponin, we gave full dose Lovenox yesterday. Serial troponin showed troponin trending up. Troponin this morning was 22. Serial EKG did not show any STEMI but rather evolving non-STEMI. Due to significantly elevated troponin, we decided to intervene first thing in the morning and also do coronary angiography of the RCA as well PVCs, beta blockers. Diabetes, deferred to the primary team. Hypertension, metoprolol succinate 100 mg daily and lisinopril. Hyperlipidemia, atorvastatin. Dilated ischemic cardiomyopathy with an EF of 30-35 percent. Likely hibernating myocardium and hopefully will improve with percutaneous intervention. I gave Lasix yesterday since the LVEDP was elevated. I spoke at length with the patient and recommended LifeVest for primary prevention of sudden cardiac . I also discussed at length with the daughter. Dr. Reveles to take over cardiology care. Thank you for your consultation. Please call me if you have any questions. Annamarie Boone MD, FACP, FACC, FSCAI, FHRS, CCDS Interventional Cardiology Cardiac Electrophysiology Vascular Medicine and Endovascular Interventions Clinical Quality Measures AMI/AHF: ASA po Prior to arrival: Yes ("/2") Zoey BOONE MD September 01, 2019 08:53
--- NOTE | 2019-09-01 08:54 | Coronary Angiography & PCI ---
Coronary Angiography & PCI DATE OF PROCEDURE: 09/01/19 INDICATION: Non-STEMI, worsening troponin. PREOPERATIVE DIAGNOSIS: Non-STEMI, worsening troponin. POSTOPERATIVE DIAGNOSIS: Successful PCI to mid LAD with drug-eluting stent. HISTORY: This is a 74-year-old gentleman with diabetes and obesity. He presents with non-STEMI. Coronary angiography was done yesterday which demonstrated multivessel disease with severe long stenosis in the mid RCA which was treated with a drug-eluting stent. The patient also has severe mid LAD stenosis which needs to be intervened on. Post PCI yesterday patient had episode of tachycardia and shortness of breath. Blood pressure was also significantly elevated. We gave IV metoprolol, followed by by mouth metoprolol, lisinopril and morphine. EKG did not reveal any ST elevations, and patient subsequently settled with no further symptoms. However troponins continue to rise and this morning troponin was 22 which is significantly elevated. Ther efore, the patient was scheduled for RCA coronary angiography and staged PCI to the LAD. PROCEDURES PERFORMED: 1.right Coronary angiography; medical necessity: Patient had episode of shortness of breath and significant sweating associated with tachycardia and severe hypertension. Serial troponin showed significant increase in troponin to 22. Therefore we decided to perform an angiogram of the RCA. 2.PCI to the mid LAD with drug-eluting stent. COMPLICATIONS: None. SPECIMENS: None. ESTIMATED BLOOD LOSS: 10 mL ANESTHESIA: Conscious sedation ANTICOAGULATION: IV heparin CONTRAST: 100 mL. FLUOROSCOPY: 7.1 minutes. FLOUROSCOPY DOSE: 936 mgy. PROCEDURE DETAILS: The patient is a 74 male and was brought to the denture laboratory technician after informed consent was taken. All the risks and complications were explained in detail; this included the risk of bleeding, vascular damage, stroke, [place] and even . The patient was draped and prepped in the usual sterile fashion. Access was gained in the right femoral artery with a 6 Micron[place] sheath. Right coronary angiography was done with the diagnostic JR4 catheter. FINDINGS: 1.Left main: Patent. 2.LAD: Heavily calcified proximal and midsegment with severe stenosis in the mid LAD. 3.Left circumflex artery: Mild diffuse disease. No significant stenosis. 4.RCA: Calcification noted in the ostium with haziness but no severe stenosis. Mild proximal disease. Patent stent with no missing distal vessels compared to yesterday angiogram. 5.Left heart catheterization: Not done. RECOMMENDATIONS: PCI to the LAD is recommended. INTERVENTION DETAILS: EBU 3.5 guide catheter, IV heparin for anticoagulation. We took a whisper extra-support wire which was placed in the distal LAD. ACT was 250 seconds. A BMW wire was placed in the first diagonal artery. Direct stenting with a science Kimberly 2.5 x 15 mm stent at 14 jo for 54 seconds. First the stent was inflated at nominal pressure and the BMW wire was taken out. Then the stent was further inflated to maximum of 14 jo for 54 seconds. Excellent results with no residual stenosis and YULIA-3 flow. Good flow in the first diagonal artery and a first septal branch; therefore we decided not to post-dilate since we had good angiographic results. The wires and balloon were taken out. Patient tolerated procedure well and did not have any complication. Patient left the denture laboratory technician with stable vital signs. CONCLUSIONS: 1. Patent stent in the RCA. Successful staged PCI to the mid LAD with a drug- eluting stent. 2. Aggressive secondary prevention measures. 3. I discussed at length with the patient and daughter. 4. LifeVest for primary prevention for sudden cardiac in a patient with dilated ischemic cardiomyopathy. Annamarie Boone MD, FACP, FACC, [facility] Interventional Cardiology Zoey BOONE MD September 01, 2019 08:54
[2019-09-01] MEDS ORDERED: ASPIRIN E.C. 81 MG (ECOTRIN) TAB PO SCH (09:00)
[2019-09-01] MEDS ORDERED: PATIENT MAY USE OWN MEDS, ALL PO SCH (09:00)
[2019-09-01] MEDS ORDERED: CHOL200059 PO (09:08)
[2019-09-01] MEDS ORDERED: NAPR220T66 PO (09:10)
[2019-09-01] MEDS ORDERED: NUGENIX PO (09:10)
--- NOTE | 2019-09-01 09:11 | NUR ---
SPOKE WITH THE PT AND WENT THRU THE EXT MED HISTORY TO COMPLETE THE MED REC PT WAS ABLE TO TELL ME ALL THE MEDICATIONS HE TOOK (WHEN/HOW) AND ALL INFORMATION MATCHED THE EXT MED HISTORY OTC MEDS: NUGENIX SUPPLEMENT VITAMIN D MTV ANN-MARIE CARIAS
--- NOTE | 2019-09-01 10:14 | Progress Note ---
Subjective Subjective/Events-last exam Reports he is feeling well. Had cath with intervention yesterday and repeat today. He had trouble sleeping last night but Ambien helped. Objective Exam Last Set of Vital Signs Vital Signs Date Time Temp Pulse Resp B/P (MAP) Pulse Ox O2 Delivery O2 Flow Rate FiO2 09/01/19 09:00 73 16 146/74 (98) 94 Room Air 09/01/19 04:00 36.2 Capillary Refill : Less Than 3 Seconds I&O Intake and Output 09/01/19 00:00 Intake Total 720 ml Output Total 2200 ml Balance -1480 ml Intake Oral 720 ml Output Urine Total 2200 ml # Voids 4 General: Alert, No Acute Distress Lungs: Clear to Auscultation, Normal Air Movement Heart: Regular Rate, No Murmurs Abdomen: Normal Bowel Sounds, Soft Psych/Mental Status: Mental Status NL Results/Procedures Lab Laboratory Tests 08/31/19 11:30: Glucometer 192H 08/31/19 12:07: Glucometer 223H 08/31/19 13:00: Troponin I 1.457*H 08/31/19 15:54: Troponin I 2.362*H 08/31/19 16:25: Glucometer 308H 08/31/19 21:04: Glucometer 200H 09/01/19 03:00: White Blood Count 11.4H, Red Blood Count 4.63, Hemoglobin 14.0, Hematocrit 42, Mean Corpuscular Volume 91, Mean Corpuscular Hemoglobin 30, Mean Corpuscular Hemoglobin Concent 33, Red Cell Distribution Width 15.1H, Platelet Count 213, Mean Platelet Volume 11.4H, Sodium Level 136, Potassium Level 4.0, Chloride Level 104, Carbon Dioxide Level 20L, Anion Gap 12, Blood Urea Nitrogen 15, Creatinine 0.98, Estimat Glomerular Filtration Rate > 60, BUN/Creatinine Ratio 15, Glucose Level 193H, Calcium Level 8.9, Troponin I 22.962*H Radiology CXR 08/29: IMPRESSION: Chronic benign subcentimeter left lung nodule, no change from priors. No acute finding. Assessment/Plan Assessment/Plan (1) Elevated troponin Status: Acute Assessment & Plan: Trending up, appreciate Cardiology recommendations, plan for cardiac cath this morning. Given Brilinta, ASA and enoxaparin night of admission 08/31 s/p cardiac cath with LIDIA to RCA on 08/30, repeat cath this am for staged procedure to LAD. (2) Chest pain Status: Acute Qualifiers: Qualified Codes: R07.9 - Chest pain, unspecified (3) Diabetes mellitus, type 2 Status: Chronic Assessment & Plan: On high dose insulin at home, as well as glipizide, metformin and pioglitazone. Given heart concerns, will hold pioglitazone and likely d/c. Will be receiving contrast for cath, hold metformin. Hold glipizide and insulin while NPO, sliding scale insulin. No home statin reported and no documentation of intolerance, will start. Qualifiers: Qualified Codes: E11.65 - Type 2 diabetes mellitus with hyperglycemia; Z79.4 - MCC (current) use of insulin (4) Hypertension Status: Chronic Assessment & Plan: Resume home benazapril. Qualifiers: Qualified Codes: I10 - Essential (primary) hypertension (5) Coronary artery disease Status: Chronic Qualifiers: Qualified Codes: I25.110 - Atherosclerotic heart disease of [place] coronary artery with unstable angina pectoris (6) Congestive heart failure Status: Acute Assessment & Plan: Echo with EF 30-35%, plan for lifevest Qualifiers: (7) NSTEMI (non-ST elevated myocardial infarction) Status: Acute (8) DVT prophylaxis Status: Acute Assessment & Plan: On treatment dose enoxaparin Clinical Quality Measures AMI/AHF: ASA po Prior to arrival: Yes ("1/2") DVT/VTE Risk/Contraindication: Risk Factor Score Per Nursin RFS Level Per Nursing on Admit: 3=High DOMINICK OBRIEN MD September 01, 2019 10:14
--- NOTE | 2019-09-01 11:11 | NUR ---
RD ASSESSMENT PMHx: T2DM; HTN; HLD PT INTERACTION: Pt was awake and pleasant during nutrition assessment. Pt states current appetite is poor and has been this way for the past 2d. Note avg PO intake 75% x2meal, per chart review. Pt states following a regular diet at home, and has no issues with chewing/swallowing food. Pt states no recent issues with nausea, vomiting, constipation or diarrhea, and that his last BM was 08/30. Note pt not currently on bowel regimen per chart review. Pt states recent wt changes. "It went up 15# when this coronavirus stuff started, and it's went down 10# in the last few weeks." Note unable to determine recent wt hx, per chart review. Pt states current DM management is pretty good, and his avg blood glucose levels are around 100. Note unable to determine recent HbA1c, per chart review. ABNORMAL NUTRITION-RELATED LAB VALUES LOW: HIGH: glu 193 Est. kcal needs: 5262-9483 kcal | 15-18 kcal/kg Est. Pro needs: 88-110 g Pro | 0.8-1.0 g Pro/kg PES STATEMENT: Inadequate oral intake (NI-2.1) related to loss of appetite as evidenced by pt interview INTERVENTION: Continue with current diet order of CHO 60g/m 1snack diet. Pt may benefit from nutrition supplementation if PO intake declines. Offered dietary education DM management, but pt declined at this time. Will attempt to offer again prior to discharge. Will continue to follow and reassess as pt needs, intake, and status change. MONITOR/EVALUATE: PO Intake; Plan of Care; Hydration Status; Weight Status; Lab Values Fco Arceo, MS, RD, LD
[2019-09-01] MEDS: meTOprolol SUCCINATE 100 MG (TOPROL XL) TAB PO SCH (11:56)
[2019-09-01] MEDS: lisINopril 20 MG (PRINIVIL) TABLET PO SCH (11:56)
--- NOTE | 2019-09-01 12:12 | NUR ---
Anointed this morning by Fr Kenney Paul.
--- NOTE | 2019-09-01 15:30 | NUR ---
THIS NURSE NOTIFIED DR REARDON PT GROIN SITE STARTED TO BLEED AFTER PT AMBULATED. THIS RN HELD PRESSURE AND CHANGED DRESSING. SITE IS CLEAN DRY AND INTACT. DR REARDON SAID TO DC LOVENOX AND HAVE PT LAY FLAT FOR 1 MORE HOUR. WILL CONTINUE TO MONITOR.
[2019-09-01] MEDS: ZOLPIDEM 5 MG (AMBIEN) TAB PO PRN (20:56)
--- NOTE | 2019-09-01 21:18 | NUR ---
THIS RN WENT TO GIVE PT NIGHT MEDICATIONS AND PT HAD TAKEN OFF LIFE VEST, BP CUFF, ECG CORDS, TAKEN OUT IV AND THREW EVERYTHING IN THE FLOOR. I EDUCATED PT THAT WE NEEDED TO BE ABLE TO MONITOR PTS VITAL SIGNS, PT STATES "I DONT CARE-IM NOT WEARING THAT SHIT, I KEEP GETTING ALL TANGLED UP WHEN I TRY TO GET UP AND GO TO THE BATHROOM, IM NOT WEARING ANY OF IT". I TRIED EDUCATING PT AGAIN, PT STATES "I HAVENT SLEPT SINCE NAY BEEN HERE AND I NEED TO SLEEP". I EDUCATED PT THAT IF HE WORE ANY OF IT THAT HE NEEDS TO AT LEAST WEAR THE LIFE VEST. PT REFUSED AND STATED "IM NOT WEARING IT TONIGHT, I NEED TO GET SOME SLEEP, ILL PUT IT BACK ON IN THE MORNING AFTER I SHOWER". THIS RN EDUCATED PT MULTIPLE TIMES, PT STATES "I UNDERSTAND THE RISKS AND I DONT CARE".
[2019-09-02 00:11] VITALS: BP 154/84
--- NOTE | 2019-09-02 00:15 | NUR ---
Pt has been intermittently confused since approx 2199. Pt climbing out of bed multiple times. Sitter in place since 0000.
[2019-09-02 03:36] LABS: HEMOGLOBIN 14.4 G/DL (13.3-17.7); MEAN PLATELET VOLUME 10.8 FL (7.4-10.4); RED CELL DISTRIBUTION WIDTH 14.8 % (10.0-14.5); WHITE BLOOD COUNT 9.3 10^3/uL (4.3-11.0)
[2019-09-02 03:51] LABS: CHLORIDE 105 MMOL/L (98-107); POTASSIUM 4.3 MMOL/L (3.6-5.0); SODIUM 137 MMOL/L (135-145)
[2019-09-02 03:52] LABS: CALCIUM 9.2 MG/DL (8.5-10.1); GLUCOSE 189 MG/DL (70-105)
[2019-09-02 03:54] LABS: CARBON DIOXIDE 21 MMOL/L (21-32)
[2019-09-02 03:56] LABS: CREATININE SERUM 1.08 MG/DL (0.60-1.30); GFR ESTIMATED > 60
[2019-09-02 03:57] LABS: BUN/CREATININE RATIO 14
[2019-09-02] MEDS: NS IV 1000 ML 1,000 ML IV SCH (04:27)
[2019-09-02 04:57] VITALS: BP 169/89
[2019-09-02] MEDS: inSUlin ASPART (NovoLOG) 1 UNIT/0.01 ML (CHARGE PER UNIT) SC SCH ×2 (05:10→11:33)
[2019-09-02] MEDS: CATHETER FLUSH 10 ML SYR IV SCH (05:10)
--- NOTE | 2019-09-02 05:30 | NUR ---
Pt woke up alert and oriented x4 at this time. Pt does not recall trying to get out of bed all night. Will continue to monitor pt.
[2019-09-02 08:00] VITALS: BP 135/63
[2019-09-02] MEDS: TICAGRELOR 90 MG TABLET (BRILINTA) PO SCH (08:29)
[2019-09-02] MEDS: meTOprolol SUCCINATE 100 MG (TOPROL XL) TAB PO SCH (08:29)
[2019-09-02] MEDS: lisINopril 20 MG (PRINIVIL) TABLET PO SCH (08:29)
[2019-09-02] MEDS ORDERED: ASPIRIN E.C. 81 MG (ECOTRIN) TAB PO SCH (09:00)
--- NOTE | 2019-09-02 11:00 | NUR ---
DR EDWARDS IS OKAY WITH DC. Addendum: 09/02/19 at 1414 by SARAVANAN YAO RN [id number] DR EDWARDS WOULD LIKE PT TO FOLLOW UP WITH DR REARDON IN 1-2 WEEKS.
--- NOTE | 2019-09-02 11:13 | Cardiology Progress Note ---
Subjective Date Seen by Provider: September 02, 2019 Time Seen by Provider: 11:11 Subjective/Events-last exam Patient was seen at bedside, sitting comfortably, asking to go home, groin is healed well. Wearing a LifeVest Review of Systems General: No Chills, No Night Sweats, No Fatigue, No Malaise, No Appetite, No Other HEENT: No Head Aches, No Visual Changes, No Eye Pain, No Ear Pain, No Dysphasia, No Sinus Congestion, No Post Nasal Drip, No Sore Throat, No Other Pulmonary: No Dyspnea, No Cough, No Pleuritic Chest Pain, No Other Cardiovascular: No: Chest Pain, Palpitations, Orthopnea, Paroxysmal Noc. Dyspnea, Edema, Lt Headedness, Other Objective-Cardiology Exam Last Set of Vital Signs Vital Signs 09/02/19 09/02/19 09/02/19 08:00 08:06 09:21 Temp 36.8 Pulse 83 Resp 20 B/P (MAP) 135/63 (87) Pulse Ox 98 O2 Delivery Room Air Capillary Refill : Less Than 3 Seconds I&O Intake and Output 09/02/19 00:00 Intake Total 1350 ml Output Total 1225 ml Balance 125 ml Intake Oral 1350 ml Output Urine Total 1225 ml # Voids 2 General: Alert, Oriented X3, Cooperative, No Acute Distress HEENT: Atraumatic, PERRLA Neck: Supple, No JVD, No Thyromegaly Lungs: Clear to Auscultation, Normal Air Movement Heart: Regular Rate, Normal S1, Normal S2, No Murmurs Abdomen: Normal Bowel Sounds, Soft Extremities: No Clubbing, No Cyanosis, No Edema, Normal Pulses, No Tenderness/Swelling Skin: No Rashes, No Breakdown, No Significant Lesion Neuro: Normal Gait, Normal Speech, Strength at 5/5 X4 Ext, Normal Tone, Sensation Intact Psych/Mental Status: Mental Status NL Results Lab Laboratory Tests 09/02/19 03:23 A/P-Cardiology Assessment/Plan Non-STEMI, coronary angiography done on 08/31/2019 showed severe focal stenosis in mid LAD and diffuse distal disease with small caliber artery. RCA has long severe stenosis in the midsegment. Elevated LVEDP. We intervened on the RCA which turned out to be a complicated PCI requiring 2 wires as well as a guide liner to get the stent down to the mid RCA. However excellent results in the end. Had another intervention with stenting to the right coronary artery with excellent results, going home today. Congestive heart failure, acute left ventricular systolic dysfunction, ejection fraction 30-35 percent, ischemic cardiomyopathy, started on aggressive medical therapy, has been started on appropriate treatment. Scheduled to follow-up with Dr. Boone. Patient has a LifeVest for primary prevention PVCs, beta blockers. Diabetes, deferred to the primary team. Hypertension, metoprolol succinate 100 mg daily and lisinopril. Hyperlipidemia, atorvastatin. Discussed with patient recovery phase and possible cardiac rehabilitation Clinical Quality Measures AMI/AHF: ASA po Prior to arrival: Yes ("1/2") DVT/VTE Risk/Contraindication: Risk Factor Score Per Nursin RFS Level Per Nursing on Admit: 3=High PHUC EDWARDS MD September 02, 2019 11:13 am
[2019-09-02] MEDS ORDERED: ASPI-983 PO (11:19)
[2019-09-02] MEDS ORDERED: TICA90TA PO (11:19)
[2019-09-02] MEDS ORDERED: MTP100TCR PO (11:19)
[2019-09-02] MEDS ORDERED: ATOR40TA PO (11:19)
[2019-09-02] MEDS ORDERED: SACU1TAB7 PO (11:19)
--- NOTE | 2019-09-02 11:19 | Discharge Summary ---
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 Admitted for elevated troponin and had 2 caths with interventions in staged procedures. Creatinine stable and vitals remained stable and Lifevest provided due to CM dx. Labs and Pending Lab Test: Laboratory Tests 09/01/19 16:36: Glucometer 246H 09/01/19 20:58: Glucometer 234H 09/02/19 03:23: White Blood Count 9.3, Red Blood Count 4.75, Hemoglobin 14.4, Hematocrit 43, Mean Corpuscular Volume 90, Mean Corpuscular Hemoglobin 30, Mean Corpuscular Hemoglobin Concent 34, Red Cell Distribution Width 14.8H, Platelet Count 212, Mean Platelet Volume 10.8H, Sodium Level 137, Potassium Level 4.3, Chloride Level 105, Carbon Dioxide Level 21, Anion Gap 11, Blood Urea Nitrogen 15, Creatinine 1.08, Estimat Glomerular Filtration Rate > 60, BUN/Creatinine Ratio 14, Glucose Level 189H, Calcium Level 9.2, Troponin I 15.338*H 09/02/19 05:09: Glucometer 188H Home Meds Active Reported [Nugenix] 1 PO BID Aleve (Naproxen Sodium) 220 Mg Tablet 440 Mg PO HS PRN Vitamin D3 (Cholecalciferol (Vitamin D3)) 50 Mcg Tablet 50 Mcg PO DAILY Flonase Allergy Relief (Fluticasone Propionate) 9.9 Ml Gilbert.susp 1 Gilbert NSEACH DAILY PRN 1 SPRAY EACH NARE DAILY Benazepril HCl 20 Mg Tablet 20 Mg PO DAILY Novolog Flexpen (Insulin Aspart) 300 Units/3 Ml Solution 20 Units SQ BID WITH MEALS Gabapentin 600 Mg Tablet 600 Mg PO 0600,1700,2100 TAKES 3 TIMES DAILY (0600,1700&2100) Testosterone Cypionate 100 Mg/1 Ml Vial 100 Mg IM MONTHLY Multi-Vitamin Daily (Multivitamin) 1 Each Tablet 1 Each PO DAILY Pioglitazone HCl 30 Mg Tablet 30 Mg PO DAILY Metformin HCl 1,000 Mg Tablet 1,000 Mg PO BID WITH MEALS Glipizide 10 Mg Tablet 10 Mg PO DAILY Levemir (Insulin Determir) 1,000 Units/10 Ml Soln 70 Units SQ BID Assessment/Pt Instructions [facility] 1 week Discharge Planning: <30 minutes discharge planning Discharge Instructions Discharge Diet: ADA Diet, Cardiac Diet Discharge Physical Examination Vital Signs Vital Signs Date Time Temp Pulse Resp B/P (MAP) Pulse Ox O2 Delivery O2 Flow Rate FiO2 09/02/19 09:21 36.8 09/02/19 08:06 98 Room Air 09/02/19 08:00 83 20 135/63 (87) General Appearance: No Apparent Distress, WD/WN, Chronically ill Allergies: Coded Allergies: Penicillins (Unverified Allergy, Unknown, FROM CHILDHOOD, 05/16/19) Discharge Summary Date of Admission August 30, 2019 at 20:44 Date of Discharge Discharge Date: September 02, 2019 Clinical Quality Measures AMI/AHF: ASA po Prior to arrival: Yes ("1/2") DVT/VTE Risk/Contraindication: Risk Factor Score Per Nursin RFS Level Per Nursing on Admit: 3=High APOLINAR STEIN DO September 02, 2019 11:19
--- NOTE | 2019-09-02 12:45 | NUR ---
THIS NURSE EDUCATED PT AND DAUGHTER, MERY, ON DISCHARGE INSTRUCTIONS. PT AND DAUGHTER STATED UNDERSTANDING. PT TAKEN DOWN BY WHEELCHAIR WITH BELONGINGS. PT TAKEN HOME BY DAUGHTER.
[2019-09-02 14:06] VITALS: BP 135/63
== END 2019-09-02 12:45 | disposition home or self-care (01) | DRG 246 ==
LOC: EDUNIT# 19:12 → ER 19:13 → ICU 20:44
PROVIDERS: ADMIT Family Medicine; ATTEND Family Medicine
PROC: 027034Z Dilation of Coronary Artery, One Artery with Drug-eluting Intraluminal Device, Percutaneous Approach (ICD-10-PCS; principal; 2019-08-31)
PROC: 4A023N7 Measurement of Cardiac Sampling and Pressure, Left Heart, Percutaneous Approach (ICD-10-PCS; 2019-08-31)
PROC: B2111ZZ Fluoroscopy of Multiple Coronary Arteries using Low Osmolar Contrast (ICD-10-PCS; 2019-08-31)
PROC: B2151ZZ Fluoroscopy of Left Heart using Low Osmolar Contrast (ICD-10-PCS; 2019-08-31)
PROC: 027034Z Dilation of Coronary Artery, One Artery with Drug-eluting Intraluminal Device, Percutaneous Approach (ICD-10-PCS; 2019-09-01)
PROC: B2101ZZ Fluoroscopy of Single Coronary Artery using Low Osmolar Contrast (ICD-10-PCS; 2019-09-01)
DX: I21.4 Non-ST elevation (NSTEMI) myocardial infarction (principal); I11.0 Hypertensive heart disease with heart failure; I50.21 Acute systolic (congestive) heart failure; I25.10 Atherosclerotic heart disease of native coronary artery without angina pectoris; I25.5 Ischemic cardiomyopathy; I49.3 Ventricular premature depolarization; E11.65 Type 2 diabetes mellitus with hyperglycemia; R61 Generalized hyperhidrosis; H91.93 Unspecified hearing loss, bilateral; M54.9 Dorsalgia, unspecified; Z79.4 Long term (current) use of insulin; Z97.4 Presence of external hearing-aid; Z96.652 Presence of left artificial knee joint; Z90.79 Acquired absence of other genital organ(s); Z82.49 Family history of ischemic heart disease and other diseases of the circulatory system; E66.9 Obesity, unspecified; Z68.32 Body mass index [BMI] 32.0-32.9, adult
CPT/HCPCS: 36415; 71045; 80048; 80053; 80061; 82962; 83690; 83735; 83874; 83880; 84484; 85007; 85025; 85027; 85610; 85730; 93005; 93041; 93306; 93458; 96372

== ENCOUNTER → 2019-12-04 | Outpatient (CLI) | payer MEDICARE, OTHER ==
[~2019-12-04] MED LIST changes: +ASPI-983 PO; +ATOR40TA PO; +BENA20TA7 PO; +FLUT9.9S NSEACH; +INSU100I14 SQ; +MTP100TCR PO; +NAPR220T66 PO; +NUGENIX PO; +SACU1TAB7 PO; +TICA90TA PO
== END ==
LOC: CARD 08:29
PROVIDERS: ATTEND Internal Medicine Interventional Cardiology
DX: I08.0 Rheumatic disorders of both mitral and aortic valves (principal); I11.0 Hypertensive heart disease with heart failure; I50.42 Chronic combined systolic (congestive) and diastolic (congestive) heart failure; I25.5 Ischemic cardiomyopathy; I25.10 Atherosclerotic heart disease of native coronary artery without angina pectoris; E11.9 Type 2 diabetes mellitus without complications
CPT/HCPCS: 93306

== ENCOUNTER 2022-12-25 05:58 | Emergency (ER) | payer MEDICARE, OTHER ==
[~2022-12-25] VITALS: Ht 177.8 cm; Wt 104.0 kg
[~2022-12-25 05:58] MED LIST changes: +ASPI-1238 PO; -ASPI-983 PO; +BENA-3 PO; -BENA20TA7 PO; -TEST100V3 IM; +TEST100V9 IM
--- NOTE | 2022-12-25 06:04 | ED General ---
General Stated Complaint: DIZZY,SWEATING History of Present Illness Date Seen by Provider: Dec 25, 2022 Time Seen by Provider: 06:04 Initial Comments 77-year-old male presents with dizziness. He reports that he got up at 4 AM to go the restroom and got really dizzy. That he went back to bed and went to continue to be dizzy and he has had on and off dizziness since then. He is not currently dizzy became dizzy while he was in a car on the way here and getting out of the car. He reports he was concerned he might be having a "stroke" patient also thinks he may be a little dehydrated and he was out in the heat yesterday. He had no other focal deficits. His dizziness Allergies and Home Medications Allergies Coded Allergies: Penicillins (Unverified Allergy, Unknown, FROM CHILDHOOD, 05/16/19) Patient Home Medication List Home Medication List Reviewed: Yes Aspirin (Aspirin EC) 81 Mg Tablet.dr, 81 MG PO DAILY Prescribed by: APOLINAR STEIN on 09/02/19 1119 Atorvastatin Calcium (Lipitor) 40 Mg Tablet, 40 MG PO HS Prescribed by: APOLINAR STEIN on 09/02/19 1119 Cholecalciferol (Vitamin D3) (Vitamin D3) 50 Mcg Tablet, 50 MCG PO DAILY, (Reported) Entered as Reported by: YUNI KHAN on 09/01/19 0908 Fluticasone Propionate (Flonase Allergy Relief) 9.9 Ml [place].susp, 1 SPRAY NSEACH DAILY PRN for CONGESTION, (Reported) Entered as Reported by: DOMINICK OBRIEN on 08/31/19 1006 Glipizide (Glipizide) 10 Mg Tablet, 10 MG PO DAILY, (Reported) Entered as Reported by: MANDEEP PARIKH on 06/06/15 1402 Insulin Aspart (Novolog Flexpen) 300 Units/3 Ml Solution, 20 UNITS SQ BID WITH MEALS, (Reported) Entered as Reported by: DOMINICK OBRIEN on 08/31/19 1006 Insulin Determir (Levemir) 1,000 Units/10 Ml Soln, 70 UNITS SQ BID, (Reported) Entered as Reported by: MANDEEP PARIKH on 06/06/15 1402 Metoprolol Succinate (Metoprolol Succinate) 100 Mg Tab.er.24h, 100 MG PO DAILY Prescribed by: APOLINAR STEIN on 09/02/19 1119 Multivitamin (Multi-Vitamin Daily) 1 Each Tablet, 1 EACH PO DAILY, (Reported) Entered as Reported by: MANDEEP PARIKH on 01/23/19 1056 Pioglitazone HCl (Pioglitazone HCl) 30 Mg Tablet, 30 MG PO DAILY, (Reported) Entered as Reported by: MANDEEP PARIKH on 01/23/19 1056 Sacubitril/Valsartan (Entresto 49 mg-51 mg Tablet) 1 Each Tablet, 1 TAB PO BID Prescribed by: APOLINAR STEIN on 09/02/19 1119 Testosterone Cypionate (Testosterone Cypionate) 100 Mg/1 Ml Vial, 100 MG IM MONTHLY, (Reported) Entered as Reported by: MANDEEP PARIKH on 01/23/19 1056 Ticagrelor (Brilinta) 90 Mg Tablet, 90 MG PO BID Prescribed by: APOLINAR STEIN on 09/02/19 1119 Review of Systems Review of Systems Constitutional: No chills; dizziness; No fever Respiratory: no symptoms reported Cardiovascular: no symptoms reported Gastrointestinal: see HPI Genitourinary: no symptoms reported Musculoskeletal: no symptoms reported Skin: no symptoms reported Psychiatric/Neurological: Headache Past Aiigbwp-Hcumod-Etozin Hx Seasonal Allergies Seasonal Allergies: Yes Past Medical History Surgeries: Yes (left TKR, HERNIA REPAIR, KNEE SCOPE, TURP) Respiratory: No Currently Using CPAP: No Currently Using BIPAP: No Cardiac: Yes Hypertension Neurological: No Reproductive Disorders: No Sexually Transmitted Disease: No HIV/AIDS: No Genitourinary: No Gastrointestinal: No Polyps Musculoskeletal: No Endocrine: Yes Diabetes, Insulin dep HEENT: Yes (GLASSES) Loss of Vision: Denies Hearing Impairment: Hard of Hearing, Bilateral Hearing Aide Cancer: No Psychosocial: No Integumentary: No Blood Disorders: No Adverse Reaction/Blood Tranf: No (N/A) Family Medical History Heart Disease, CAD Over 55 Years Old Physical Exam Vital Signs Vital Signs - First Documented 12/25/22 06:05 Temp 36.2 Pulse 69 Resp 16 B/P (MAP) 151/83 (105) Pulse Ox 97 O2 Delivery Room Air Capillary Refill : Height, Weight, BMI Height: 5'10.00" Weight: 241lbs. 6.0oz. 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 Norm as Tested Skin: Normal Color, Warm/Dry Progress/Results/Core Measures Suspected Sepsis SIRS Temperature: Pulse: Respiratory Rate: Laboratory Tests 12/25/22 06:20: White Blood Count 6.0 Blood Pressure / Mean: Laboratory Tests 12/25/22 06:20: Creatinine 1.09, Platelet Count 149, Total Bilirubin 0.5 Results/Orders Lab Results Laboratory Tests Test 12/25/22 06:20 12/25/22 07:53 Range/Units White Blood Count 6.0 4.3-11.0 10^3/uL Red Blood Count 4.80 4.30-5.52 10^6/uL Hemoglobin 15.0 13.3-17.7 g/dL Hematocrit 45 40-54 % Mean Corpuscular Volume 94 80-99 fL Mean Corpuscular Hemoglobin 31 25-34 pg Mean Corpuscular Hemoglobin Concent 33 32-36 g/dL Red Cell Distribution Width 14.3 10.0-14.5 % Platelet Count 149 130-400 10^3/uL Mean Platelet Volume 10.2 9.0-12.2 fL Immature Granulocyte % (Auto) 1 % Neutrophils (%) (Auto) 50 42-75 % Lymphocytes (%) (Auto) 34 12-44 % Monocytes (%) (Auto) 11 0-12 % Eosinophils (%) (Auto) 4 0-10 % Basophils (%) (Auto) 1 0-10 % Neutrophils # (Auto) 3.0 1.8-7.8 10^3/uL Lymphocytes # (Auto) 2.0 1.0-4.0 10^3/uL Monocytes # (Auto) 0.7 0.0-1.0 10^3/uL Eosinophils # (Auto) 0.2 0.0-0.3 10^3/uL Basophils # (Auto) 0.1 0.0-0.1 10^3/uL Immature Granulocyte # (Auto) 0.0 0.0-0.1 10^3/uL Sodium Level 141 135-145 MMOL/L Potassium Level 4.5 3.6-5.0 MMOL/L Chloride Level 107 98-107 MMOL/L Carbon Dioxide Level 23 21-32 MMOL/L Anion Gap 11 5-14 MMOL/L Blood Urea Nitrogen 22 H 7-18 MG/DL Creatinine 1.09 0.60-1.30 MG/DL Estimat Glomerular Filtration Rate 70 BUN/Creatinine Ratio 20 Glucose Level 165 H 70-105 MG/DL Calcium Level 9.0 8.5-10.1 MG/DL Corrected Calcium 9.3 8.5-10.1 MG/DL Magnesium Level 2.1 1.6-2.4 MG/DL Total Bilirubin 0.5 0.1-1.0 MG/DL Aspartate Amino Transf (AST/SGOT) 25 5-34 U/L Alanine Aminotransferase (ALT/SGPT) 27 0-55 U/L Alkaline Phosphatase 68 40-136 U/L Troponin I < 0.028 <0.028 NG/ML Total Protein 6.3 L 6.4-8.2 GM/DL Albumin 3.6 3.2-4.5 GM/DL Urine Color ORANGE Urine Clarity SL CLOUDY Urine pH 6.5 5-9 Urine Specific [place] 1.015 L 1.016-1.022 Urine Protein NEGATIVE NEGATIVE Urine Glucose (UA) 3+ H NEGATIVE Urine Ketones 1+ H NEGATIVE Urine Nitrite NEGATIVE NEGATIVE Urine Bilirubin NEGATIVE NEGATIVE Urine Urobilinogen 0.2 < = 1.0 MG/DL Urine Leukocyte Esterase NEGATIVE NEGATIVE Urine RBC (Auto) 3+ H NEGATIVE Urine RBC >100 H /HPF Urine WBC RARE /HPF Urine Squamous Epithelial Cells RARE /HPF Urine Crystals NONE /LPF Urine Bacteria NEGATIVE /HPF Urine Casts NONE /LPF Urine Mucus NEGATIVE /LPF Urine Culture Indicated NO My Orders Orders - PAO ZAFARR L DO Ct Head Wo (12/25/22 06:13) Ct Angio Head/Neck (12/25/22 06:13) Cbc And Automated Diff (12/25/22 06:13) Comprehensive Metabolic Panel (12/25/22 06:13) Magnesium (12/25/22 06:13) Troponin I Abbi (12/25/22 06:13) Ua Culture If Indicated (12/25/22 06:13) Ekg Tracing (12/25/22 06:13) Monitor-Rhythm Ecg Trace Only (12/25/22 06:13) Ns Iv 1000 Ml (Ns Iv 1000 Ml) (12/25/22 06:13) Iohexol Injection (Omnipaque 350 Mg/Ml 1 (12/25/22 07:15) Received Contrast (Hold Metformin- Contr (12/25/22 07:15) Sodium Chloride Flush (Catheter Flush Sy (12/25/22 07:15) Ns (Ivpb) 100 Ml (Sodium Chloride 0.9% 1 (12/25/22 07:15) Mri Brain W/O Contrast (12/25/22 07:44) Medications Given in ED Current Medications Medications Dose Ordered Sig/Job Route Start Time Stop Time Status Last Admin Dose Admin Iohexol 100 ml ONCE ONCE IV 12/25/22 07:15 12/25/22 07:16 DC 12/25/22 07:07 75 ML Sodium Chloride 10 ml NEEDED PRN IV 12/25/22 07:15 12/25/22 07:07 10 ML Sodium Chloride 100 ml ONCE ONCE IV 12/25/22 07:15 12/25/22 07:16 DC 12/25/22 07:07 80 ML Vital Signs/I&O 12/25/22 06:05 Temp 36.2 Pulse 69 Resp 16 B/P (MAP) 151/83 (105) Pulse Ox 97 O2 Delivery Room Air Capillary Refill : Progress Note : Progress Note Patient's diagnostic studies were ordered reviewed and interpreted by me with no acute findings on his labs. Patient's imaging was ordered reviewed with final interpretation per radiology report. Patient's CT CTA and MRI all showed no acute findings. Patient with a peripheral vertigo likely either dehydration or benign positional vertigo. He should drink plenty of fluids he may use meclizine as needed. He is stable and discharged home ECG Initial ECG Impression Date: Dec 25, 2022 Initial ECG Impression Time: 06:21 Initial ECG Rate: 69 Initial ECG Rhythm: Normal Sinus Initial ECG Intervals: Normal Initial ECG Impression: Normal Diagnostic Imaging Diagonstic Imaging: CT Plain Films/CT/US/NM/MRI: head Comments Date of Exam:12/25/22 CT HEAD WO PROCEDURE: CT head without contrast. TECHNIQUE: Multiple contiguous axial images were obtained through the brain without the use of intravenous contrast. Auto Exposure Controls were utilized during the CT exam to meet ALARA standards for radiation dose reduction. INDICATION: Dizziness, presyncope The ventricles are normal in size, shape and position. There are no masses or hemorrhages. There are small bilateral subdural effusions. IMPRESSION: Small bilateral anterior subdural effusions. Chronic subdural hematomas cannot be excluded. There is no acute hemorrhage seen. Reviewed: Reviewed/Discussed Diagonstic Imaging: CT Plain Films/CT/US/NM/MRI: head Comments Date of Exam:12/25/22 CT ANGIO HEAD/NECK PROCEDURE: CT angiography of the head and CT angiography of the neck with and without contrast. TECHNIQUE: Contiguous noncontrast images were obtained from the skull base through the vertex. After intravenous contrast administration, helical CT angiography of the neck was performed. Source data was reformatted into 3D MIP projections. Delayed post contrast acquisition was also obtained. Auto Exposure Controls were utilized during the CT exam to meet ALARA standards for radiation dose reduction. INDICATION: Dizziness while brushing teeth, altered mental status. Brachiocephalic origins are widely patent. There is some atherosclerotic plaque at both carotid bifurcations causing mild luminal irregularity but no stenosis or occlusion. Both vertebral arteries are widely patent. No large vessel occlusion seen near the [place]. No perfusion abnormality seen in the brain. The ventricles are normal in size, shape and position. Postcontrast images do not show any abnormal areas of enhancement. Jugular veins and dural venous sinuses appear to be widely patent. IMPRESSION: Mild atherosclerotic changes of the carotid bifurcations bilaterally. CT head and neck otherwise unremarkable. Reviewed: Reviewed/Discussed Departure Impression Primary Impression: Dizziness Disposition: 01 HOME, SELF-CARE Condition: Stable Departure-Patient Inst. Referrals: [facility] (PCP) Primary Care Physician YUNI RUGGIERO DO (Family) Primary Care Physician Patient Instructions: Dizziness, Adult ED Add. Discharge Instructions: You may use [id number] meclizine as needed. Follow-up with your primary care provider if you continue to have symptoms throughout the weekend for recheck. Be sure you drink plenty of fluids KATIE ZAFAR DO Dec 25, 2022 06:04
[2022-12-25] MEDS ORDERED: NS IV 1000 ML 1,000 ML IV STA (06:13)
[2022-12-25 06:39] LABS: BASOPHILS # (AUTO) 0.1 10^3/uL (0.0-0.1); BASOPHILS % (AUTO) 1 % (0-10); EOSINOPHILS # (AUTO) 0.2 10^3/uL (0.0-0.3); EOSINOPHILS % (AUTO) 4 % (0-10); HEMATOCRIT 45 % (40-54); LYMPHOCYTES % (AUTO) 34 % (12-44); MEAN CORPUSCULAR HEMOGLOBIN 31 pg (25-34); MEAN CORPUSCULAR HGB CONC 33 g/dL (32-36); MEAN CORPUSCULAR VOLUME 94 fL (80-99); MEAN PLATELET VOLUME 10.2 fL (9.0-12.2); MONOCYTES # (AUTO) 0.7 10^3/uL (0.0-1.0); MONOCYTES % (AUTO) 11 % (0-12); NEUTROPHILS % (AUTO) 50 % (42-75); PLATELET COUNT 149 10^3/uL (130-400)
[2022-12-25 06:46] LABS: ALBUMIN 3.6 GM/DL (3.2-4.5); CHLORIDE 107 MMOL/L (98-107); POTASSIUM 4.5 MMOL/L (3.6-5.0); SODIUM 141 MMOL/L (135-145)
[2022-12-25 06:48] LABS: GLUCOSE 165 MG/DL (70-105); TOTAL PROTEIN 6.3 GM/DL (6.4-8.2)
[2022-12-25 06:49] LABS: CARBON DIOXIDE 23 MMOL/L (21-32)
[2022-12-25 06:50] LABS: BILIRUBIN,TOTAL 0.5 MG/DL (0.1-1.0)
[2022-12-25 06:52] LABS: ALKALINE PHOSPHATASE 68 U/L (40-136); CREATININE SERUM 1.09 MG/DL (0.60-1.30); GFR ESTIMATED 70
[2022-12-25 06:53] LABS: BUN/CREATININE RATIO 20
[2022-12-25 06:55] LABS: ALANINE AMINOTRANSFERASE 27 U/L (0-55); MAGNESIUM 2.1 MG/DL (1.6-2.4)
--- NOTE | 2022-12-25 06:59 | Diagnostic Imaging Report ---
PROCEDURE: CT head without contrast. TECHNIQUE: Multiple contiguous axial images were obtained through the brain without the use of intravenous contrast. Auto Exposure Controls were utilized during the CT exam to meet ALARA standards for radiation dose reduction. INDICATION: Dizziness, presyncope The ventricles are normal in size, shape and position. There are no masses or hemorrhages. There are small bilateral subdural effusions. IMPRESSION: Small bilateral anterior subdural effusions. Chronic subdural hematomas cannot be excluded. There is no acute hemorrhage seen. Dictated by: Dictated on workstation # [id number]
[2022-12-25] MEDS ORDERED: HOLD METFORMIN - RECEIVED CONTRAST 20 ML VIAL IV SCH (07:15)
[2022-12-25] MEDS ORDERED: CATHETER FLUSH 10 ML SYR IV PRN (07:15)
[2022-12-25] MEDS ORDERED: NS 100 ML (IVPB) BAG IV ONE (07:15)
[2022-12-25] MEDS ORDERED: IOHEXOL 350 MG/ML 100 ML (OMNIPAQUE 350) VIAL IV ONE (07:15)
--- NOTE | 2022-12-25 07:23 | Diagnostic Imaging Report ---
PROCEDURE: CT angiography of the head and CT angiography of the neck with and without contrast. TECHNIQUE: Contiguous noncontrast images were obtained from the skull base through the vertex. After intravenous contrast administration, helical CT angiography of the neck was performed. Source data was reformatted into 3D MIP projections. Delayed post contrast acquisition was also obtained. Auto Exposure Controls were utilized during the CT exam to meet ALARA standards for radiation dose reduction. INDICATION: Dizziness while brushing teeth, altered mental status. Brachiocephalic origins are widely patent. There is some atherosclerotic plaque at both carotid bifurcations causing mild luminal irregularity but no stenosis or occlusion. Both vertebral arteries are widely patent. No large vessel occlusion seen near the [place]. No perfusion abnormality seen in the brain. The ventricles are normal in size, shape and position. Postcontrast images do not show any abnormal areas of enhancement. Jugular veins and dural venous sinuses appear to be widely patent. IMPRESSION: Mild atherosclerotic changes of the carotid bifurcations bilaterally. CT head and neck otherwise unremarkable. Dictated by: Dictated on workstation # [id number]
[2022-12-25 08:11] LABS: CLARITY,URINE SL CLOUDY; COLOR,URINE ORANGE; GLUCOSE, URINE (UA) 3+ (NEGATIVE); PH,URINE 6.5 (5-9); PROTEIN,URINE NEGATIVE (NEGATIVE)
[2022-12-25 08:12] LABS: BACTERIA,URINE NEGATIVE /HPF; BILIRUBIN,URINE NEGATIVE (NEGATIVE); KETONES,URINE 1+ (NEGATIVE); LEUKOCYTE ESTERASE ,URINE NEGATIVE (NEGATIVE); NITRITE,URINE NEGATIVE (NEGATIVE); RBC,URINE >100 /HPF; SQUAMOUS EPITHELIAL CELL,UR RARE /HPF; WBC,URINE RARE /HPF
--- NOTE | 2022-12-25 09:01 | Diagnostic Imaging Report ---
Clinical Indication: Patient having dizzy spells this morning. Pre-syncope. Patient with altered mental status. Exam: MRI of the brain performed without IV contrast. Sequences include axial DWI, ADC map, axial T1, axial T2, axial FLAIR, coronal gradient echo, and sagittal T1. Comparison: CT angiogram of the head/neck dated 12/25/2022. Findings: There is no evidence of acute cerebral infarct, intracranial hemorrhage, or gross mass effect. The brain parenchymal volume appears appropriate for patient's age. There are several focal areas of high T2 signal white matter changes and mild confluent high T2 signal in the periventricular regions of both cerebral hemispheres, likely representing mild chronic small vessel ischemic disease. There is normal [place]-white matter distinction. There is no significant midline shift or herniation. Visualized lower [place] vascular structures are unremarkable. The pituitary gland, sella, and suprasellar regions are unremarkable as visualized. There is no evidence of hydrocephalus. The basal cisterns are unremarkable. The skull, extracranial soft tissue, and orbits are unremarkable. The paranasal sinuses are unremarkable. Temporal bones show no significant abnormality. IMPRESSION: Age-related brain parenchymal changes with no evidence of acute intracranial process. Dictated by: Dictated on workstation # [id number]
[2022-12-25 09:23] VITALS: BP 130/80
== END 2022-12-25 09:23 | disposition home or self-care (01) ==
LOC: EDUNIT# 05:58 → ER 06:01
DX: R42 Dizziness and giddiness (principal); E11.9 Type 2 diabetes mellitus without complications; Z79.4 Long term (current) use of insulin
CPT/HCPCS: 36415; 70450; 70496; 70498; 70551; 80053; 81000; 83735; 84484; 85025; 93005; 93041

== ENCOUNTER 2023-02-20 19:16 | Inpatient (IN) | payer MEDICARE ==
[~2023-02-20] VITALS: Ht 177 cm; Wt 104.8 kg
[2023-02-20] MEDS ORDERED: ASPIRIN 81 MG CHEWABLE TABLET PO ONE (19:30)
[2023-02-20] MEDS ORDERED: NS IV 1000 ML 1,000 ML IV STA (19:30)
[2023-02-20] MEDS ORDERED: NITROGLYCERIN 0.4 MG SL TABLETS BTL 25'S SL PRN (19:30)
--- NOTE | 2023-02-20 19:33 | ED Chest Pain ---
General Chief Complaint: Chest Pain Stated Complaint: CHEST PAIN/SWEATING Source: patient Exam Limitations: no limitations History of Present Illness Date Seen by Provider: Feb 20, 2023 Time Seen by Provider: 19:21 Initial Comments Patient is a 77-year-old male who presents to the emergency department today with a chief complaint of midsternal chest pain onset about 45 minutes prior to arrival. He states the pain seems to go across the upper portion of his chest and up into his neck. He denies radiation into his arms. He states he felt short of breath with the pain as well as a little sweaty. Rates the pain at a "6 or 7". States it feels exactly like prior heart attack pain when he had stents placed 2 years ago but even more intense. Nothing really made the pain any better or any worse. He did not take any medications at home prior to arrival. Does take baby aspirin daily. Is a diabetic on oral pills as well as insulin. 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 Local physician is Dr. Ruggiero at [facility]. States that he is compliant with his daily medications. Denies recent illnesses, fevers, chills, productive cough. Timing/Duration: 1 hour Severity/Quality: moderate ("6-7"), sharp Location: central Radiation: other (across neck) Activities at Onset: rest (watching football) Prior CP/Workup: cardiac cath (stents), echocardiography, heart attack ASA po POSTAL TRANSPORTATION CLERK: No NTG SL POSTAL TRANSPORTATION CLERK: No Associated Symptoms: diaphoresis, shortness of breath, weakness Allergies and Home Medications Allergies Coded Allergies: Penicillins (Unverified Allergy, Unknown, FROM CHILDHOOD, 05[birth year]16/19) Patient Home Medication List Home Medication List Reviewed: Yes Aspirin (Aspirin EC) 81 Mg Tablet., 81 MG PO DAILY, (Reported) Entered as Reported by: YUNI KHAN on 02/22/23 1212 Last Action: Reviewed Atorvastatin Calcium (Atorvastatin Calcium) 40 Mg Tablet, 40 MG PO DAILY, (Reported) Entered as Reported by: YUNI KHAN on 02/22/23 121 Last Action: Reviewed Cholecalciferol (Vitamin D3) (Vitamin D3) 50 Mcg Tablet, 50 MCG PO DAILY, (Reported) Entered as Reported by: YUNI KHAN on 09/01/19 0908 Last Action: Reviewed Clopidogrel Bisulfate (Clopidogrel) 75 Mg Tablet, 75 MG PO DAILY Prescribed by: Omar Scales on 02/23/23 1023 Cyanocobalamin (Vitamin B-12) (Vitamin B-12) 500 Mcg Tablet, 500 MCG PO 5XD, (Reported) Entered as Reported by: YUNI KHAN on 02/22/231211 Last Action: Reviewed Empagliflozin (Jardiance) 25 Mg Tablet, 25 MG PO DAILY, (Reported) Entered as Reported by: TOÑO HENNING on 02/21/231420 Last Action: Reviewed Ezetimibe (Ezetimibe) 10 Mg Tablet, 10 MG PO 1600, (Reported) Entered as Reported by: TOÑO HENNING on 02/21/231421 Last Action: Reviewed Gabapentin (Gabapentin) 600 Mg Tablet, 600 MG PO TID, (Reported) Entered as Reported by: TOÑO HENNING on 02/21/231420 Last Action: Reviewed Insulin Aspart (Novolog) 100 Unit/Ml Susp, 0-10 UNIT SC ACHS Prescribed by: Omar Scales on 02/23/23 1023 Insulin Detemir (Levemir Flexpen) 100 Unit/Ml (3 Ml) Insuln.pen, 25 UNITS SC BID WITH MEALS Prescribed by: Omar Scales on 02/23/23 1023 Metoprolol Succinate (Metoprolol Succinate) 100 Mg Tab.er.24h, 100 MG PO 1600, (Reported) Entered as Reported by: YUNI KHAN on 02/22/231211 Last Action: Reviewed Multivitamin (Multi-Vitamin Daily) 1 Each Tablet, 1 EACH PO DAILY, (Reported) Entered as Reported by: MANDEEP PARIKH on 01/23/19 1056 Last Action: Reviewed Sacubitril/Valsartan (Entresto 49 mg-51 mg Tablet) 49 Mg-51 Mg Tablet, 1 EA PO BID, (Reported) Entered as Reported by: YUNI KHAN on 02/22/231211 Last Action: Reviewed Testosterone Cypionate (Testosterone Cypionate) 200 Mg/Ml Vial, 200 MG IM EVERY 2 WEEKS, (Reported) Entered as Reported by: YUNI KHAN on 02/22/231211 Last Action: Reviewed Tirzepatide (Mounjaro) 5 Mg/0.5 Ml Pen.injctr, 5 MG SQ TUES, (Reported) Entered as Reported by: TOÑO HENNING on 02/21/23 142 Last Action: Reviewed Ubidecarenone (Co Q-10) 100 Mg Capsule, 100 MG PO DAILY, (Reported) Entered as Reported by: TOÑO HENNING on 02/21/23 142 Last Action: Reviewed [Relaxium Sleep] , 1 EA PO HS PRN for SLEEP, (Reported) Entered as Reported by: YUNI KHAN on 02/22/23 1212 Last Action: Reviewed Discontinued Medications Aspirin (Aspirin EC) 81 Mg Tablet.dr, 81 MG PO DAILY Discontinued Reason: No Longer Taking Prescribed by: APOLINAR STEIN on 09/02/19 111 Last Action: Discontinued Atorvastatin Calcium (Lipitor) 40 Mg Tablet, 40 MG PO HS Discontinued Reason: Duplicate Order Prescribed by: APOLINAR STEIN on 09/02/19 111 Last Action: Discontinued Fluticasone Propionate (Flonase Allergy Relief) 9.9 Ml [place].susp, 1 SPRAY NSEACH DAILY PRN for CONGESTION, (Reported) Discontinued Reason: No Longer Taking Entered as Reported by: DOMINICK OBRIEN on 08/31/19 1006 Last Action: Discontinued Glipizide (Glipizide) 10 Mg Tablet, 10 MG PO DAILY, (Reported) Discontinued Reason: No Longer Taking Entered as Reported by: MANDEEP PARIKH on 06/06/15 1402 Last Action: Discontinued Insulin Aspart (Novolog Flexpen) 100 Unit/Ml (3 Ml) Solution, 18 UNITS SQ BID WITH MEALS, (Reported) Entered as Reported by: DOMINICK OBRIEN on 08/31/19 1006 Last Action: Reviewed Metoprolol Succinate (Metoprolol Succinate) 100 Mg Tab.er.24h, 100 MG PO DAILY Discontinued Reason: Duplicate Order Prescribed by: APOLINAR STEIN on 09/02/19 111 Last Action: Discontinued Pioglitazone HCl (Pioglitazone HCl) 30 Mg Tablet, 30 MG PO DAILY, (Reported) Discontinued Reason: No Longer Taking Entered as Reported by: MANDEEP PARIKH on 01/23/19 1056 Last Action: Discontinued Sacubitril/Valsartan (Entresto 49 mg-51 mg Tablet) 1 Each Tablet, 1 TAB PO BID Discontinued Reason: Duplicate Order Prescribed by: APOLINAR STEIN on 09/02/19 111 Last Action: Discontinued Testosterone Cypionate (Testosterone Cypionate) 100 Mg/Ml Vial, 200 MG IM g3eluce, (Reported) Discontinued Reason: Duplicate Order Entered as Reported by: MANDEEP PARIKH on 01/23/19 1056 Last Action: Discontinued Ticagrelor (Brilinta) 90 Mg Tablet, 90 MG PO BID Discontinued Reason: No Longer Taking Prescribed by: APOLINAR STIEN on 09/02/19 111 Last Action: Discontinued Review of Systems Review of Systems Constitutional: see HPI EENTM: No Symptoms Reported Respiratory: Shortness of Air Cardiovascular: Chest Pain Gastrointestinal: No Symptoms Reported Genitourinary: No Symptoms Reported Musculoskeletal: no symptoms reported Skin: other (sweaty) Psychiatric/Neurological: No Symptoms Reported All Other Systems Reviewed Negative Unless Noted: Yes Past Spbcwwv-Rnbkqg-Hfagux Hx Seasonal Allergies Seasonal Allergies: Yes Past Medical History Surgery/Hospitalization HX: back sx iddm, mi, cad, htn, ch back pain Surgeries: Yes (left TKR, HERNIA REPAIR, KNEE SCOPE, TURP) Respiratory: No Currently Using CPAP: No Currently Using BIPAP: No Cardiac: Yes Hypertension Neurological: No Reproductive Disorders: No Sexually Transmitted Disease: No HIV/AIDS: No Genitourinary: No Gastrointestinal: No Polyps Musculoskeletal: No Endocrine: Yes Diabetes, Insulin dep HEENT: Yes (GLASSES) Loss of Vision: Denies Hearing Impairment: Hard of Hearing, Bilateral Hearing Aide Cancer: No Psychosocial: No Integumentary: No Blood Disorders: No Adverse Reaction/Blood Tranf: No (N/A) Family Medical History Heart Disease, CAD Over 55 Years Old Physical Exam Vital Signs Vital Signs - First Documented 02/20/23 19:21 Temp 36.1 Pulse 94 Resp 16 B/P (MAP) 148/80 (102) Pulse Ox 96 O2 Delivery Room Air Capillary Refill : Height, Weight, BMI Height: 5'10.00" Weight: 241lbs. 6.0oz. [id number]; 32.00 BMI Method: General Appearance: WD/WN, Anxious HEENT: PERRL/EOMI Neck: Normal Inspection Respiratory: Lungs Clear, Normal Breath Sounds, No Accessory Muscle Use, No Respiratory Distress, Other (tenderness to palpation across the upper chest "that makes the pain worse") Cardiovascular: Regular Rate, Rhythm, Normal Peripheral Pulses Gastrointestinal: Normal Bowel Sounds, Soft Extremity: Normal Inspection, Normal Range of Motion, No Pedal Edema Neurologic/Psychiatric: Alert, Oriented x3, No Motor/Sensory Deficits, Normal Mood/Affect Skin: Normal Color, Warm/Dry Progress/Results/Core Measures Results/Orders Lab Results Laboratory Tests Test 02/20/23 19:25 02/20/23 21:50 Range/Units White Blood Count 10.0 4.3-11.0 10^3/uL Red Blood Count 5.27 4.30-5.52 10^6/uL Hemoglobin 16.5 13.3-17.7 g/dL Hematocrit 50 40-54 % Mean Corpuscular Volume 94 80-99 fL Mean Corpuscular Hemoglobin 31 25-34 pg Mean Corpuscular Hemoglobin Concent 33 32-36 g/dL Red Cell Distribution Width 13.2 10.0-14.5 % Platelet Count 198 130-400 10^3/uL Mean Platelet Volume 10.6 9.0-12.2 fL Immature Granulocyte % (Auto) 1 % Neutrophils (%) (Auto) 53 42-75 % Lymphocytes (%) (Auto) 31 12-44 % Monocytes (%) (Auto) 11 0-12 % Eosinophils (%) (Auto) 3 0-10 % Basophils (%) (Auto) 1 0-10 % Neutrophils # (Auto) 5.3 1.8-7.8 10^3/uL Lymphocytes # (Auto) 3.1 1.0-4.0 10^3/uL Monocytes # (Auto) 1.1 H 0.0-1.0 10^3/uL Eosinophils # (Auto) 0.3 0.0-0.3 10^3/uL Basophils # (Auto) 0.1 0.0-0.1 10^3/uL Immature Granulocyte # (Auto) 0.1 0.0-0.1 10^3/uL Prothrombin Time 12.9 12.2-14.7 SEC INR Comment 0.9 0.8-1.4 Activated Partial Thromboplast Time 29 24-35 SEC Sodium Level 137 135-145 MMOL/L Potassium Level 4.5 3.6-5.0 MMOL/L Chloride Level 104 98-107 MMOL/L Carbon Dioxide Level 20 L 21-32 MMOL/L Anion Gap 13 5-14 MMOL/L Blood Urea Nitrogen 27 H 7-18 MG/DL Creatinine 1.47 H 0.60-1.30 MG/DL Estimat Glomerular Filtration Rate 49 BUN/Creatinine Ratio 18 Glucose Level 222 H 70-105 MG/DL Calcium Level 9.2 8.5-10.1 MG/DL Corrected Calcium 9.2 8.5-10.1 MG/DL Magnesium Level 2.4 1.6-2.4 MG/DL Total Bilirubin 0.3 0.1-1.0 MG/DL Aspartate Amino Transf (AST/SGOT) 63 H 5-34 U/L Alanine Aminotransferase (ALT/SGPT) 48 0-55 U/L Alkaline Phosphatase 89 40-136 U/L Myoglobin 47.3 10.0-92.0 NG/ML Troponin I < 0.028 0.505 *H <0.028 NG/ML Total Protein 7.5 6.4-8.2 GM/DL Albumin 4.0 3.2-4.5 GM/DL My Orders Orders - TOÑO ARAUZ MD Ekg Tracing (02/20/23:) Cbc And Automated Diff (02/20/23 19:30) Magnesium (02/20/23 19:30) Chest 1 View, Ap/Pa Only (02/20/23:30) Comprehensive Metabolic Panel (02/20/23:30) Myoglobin Serum (02/20/23 19:30) Protime With Inr (02/20/23:30) Partial Thromboplastin Time (02/20/23:30) O2 (02/20/23:30) Monitor-Rhythm Ecg Trace Only (02/20/23 19:30) Ed Iv/Invasive Line Start (02/20/23 19:30) Troponin I [place] (02/20/23 19:30) Nitroglycerin 0.4 Mg Btl 25's (Nitroglyc (02/20/23 19:30) Aspirin Chewable Tablet (Aspirin Chewabl (02/20/23 19:30) Ns Iv 1000 Ml (Ns Iv 1000 Ml) (02/20/23 19:30) Ekg Tracing (02/20/23 19:58) Troponin I [place] (02/20/23 21:31) Ed Admission (Communication) (11/18/23 22:43) Metoprolol Succinate (Xl) Tab (Metoprolo (02/20/23 22:45) Enoxaparin Injection (Enoxaparin Injecti (02/20/23 22:45) Medications Given in ED Vital Signs/I&O 02/20/23 02/20/23 02/20/23 19:21 23:42 23:45 Temp 36.1 36.1 Pulse 94 84 75 Resp 16 16 B/P (MAP) 148/80 (102) 97/67 119/76 (90) Pulse Ox 96 95 96 O2 Delivery Room Air Room Air Room Air Progress Progress Note : Time: 22:40 Progress Note Patient seen and evaluated by me. Evaluation today includes history and physical exam with "chest pain work-up" to include CBC, Chem-12, magnesium level, serum troponin x2, coags, single view chest x-ray, EKG x2. Pertinent physical exam findings include well-developed well-nourished obese male, no acute distress. Normal pulse, blood pressure and oxygenation. Heart is regular without ectopy. He is tender to chest wall with palpation. He states this intensifies his pain. Lungs are clear. Abdomen is soft, benign. No calf tenderness. No focal neurologic deficits. Differential diagnosis includes acute coronary syndrome, musculoskeletal chest wall pain, pleurisy, pulmonary embolism? Labs independently reviewed and interpreted by me as well as the EKG and single view chest x-ray. CBC is normal. His Chem-12 shows slightly low CO2 at 20, chronic kidney disease with an elevated BUN at 27 creatinine 1.47. Glucose is high at 222. His initial troponin is undetectable however repeat 3 hours later shows elevation at 0.505. His coags are within normal limits. EKG shows normal sinus rhythm without ectopy or ST segment change on 2 EKGs. His chest x- ray shows no effusions, infiltrate or mediastinal abnormalities. Patient is treated on arrival with full-strength aspirin as well as sublingual nitro. Carla ent basically had spontaneous resolution of the pain with administration of his aspirin. His vital signs remained stable throughout the duration of his stay in the emergency department. With his elevation in troponin and prior stenting there is concern for new ACS. No concerning findings for pneumonia, no concerning findings historically or on exam for pulmonary embolism. Case is discussed with the resident on-call for [facility], Dr. Moore as well as cardiology on-call Dr. Sargent. Cardiology would like for him to have 25 mg of metoprolol p.o. now as well as therapeutic Lovenox. Will repeat EKG and troponin in the morning. Patient will be admitted observation to the cardiac stepdown floor. He is comfortable with plan of care. All questions were sought and answered. Initial ECG Impression Date: Feb 20, 2023 Initial ECG Impression Time: 19:26 Initial ECG Rate: 92 Initial ECG Rhythm: Normal Sinus Initial ECG Intervals: UT Initial ECG Intervals UT interval 219 QRS 83 QTc 393 Initial ECG Impression: Normal Comment Patient has Q waves in the inferior leads, lead III and lead aVF. No ectopy. First-degree AV block, no ST segment elevation or depression EKG : EKG Time: 20:04 Rate: 86 Rhythm: Normal Sinus Intervals: UT Intervals UT interval 223 QRS 91 QTc 409 ECG Comparisson: Unchanged Diagnostic Imaging Diagonstic Imaging: Xray Plain Films/CT/US/NM/MRI: chest Comments [facility]. [place], [place] NAME: TUAN FAN [facility] REC#: [id number] PT STATUS: REG ER : 1945 PHYSICIAN: TOÑO ARAUZ MD ADMIT DATE: 02/20/23/ER Signed Date of Exam:02/20/23 CHEST 1 VIEW, AP/PA ONLY INDICATION: 77-year-old male with chest pain, swelling and shortness of breath. COMPARISON: 08/30/2019. FINDINGS: Single view chest shows normal heart, pleura and diaphragms. No consolidation is seen. There is no effusion or pneumothorax. Film is underpenetrated. Soft tissues and bony thorax are grossly unremarkable. IMPRESSION: No acute cardiopulmonary change. Dictated by: Dictated on workstation # [id number] Dict: 02/20/231940 Trans: 02/20/232058 [facility] [id number] Interpreted by: VINNY CHOW MD Electronically signed by: VINNY CHOW MD 02/20/232058 Departure Communication (Admissions) Time/Spoke to Admitting Phy: 22:[address] Montemayor - resident head of sales promotion for [facility]; will write orders Time/Spoke to Consulting Phy: 22:41 Discussed with claudia Morris; repeat troponin and lovenox Impression Primary Impression: Chest pain Qualified Codes: R07.9 - Chest pain, unspecified Additional Impression: Elevated troponin Disposition: ADMITTED INPATIENT Condition: Stable Admissions Decision to Admit Reason: Admit from ER (General) Decision to Admit/Date: Feb 20, 2023 Time/Decision to Admit Time: 22:45 Departure-Patient Inst. Referrals: [facility] (PCP) Primary Care Physician YUNI RUGGIERO DO (Family) Primary Care Physician Charley Insulin Aspart (Novolog) 100 Unit/Ml Susp 0-10 UNIT SC ACHS for 30 Days, #100 ML Blood sugar 60-180: 0 units Blood sugar 181-200: 2 units Blood sugar 201-250: 4 units Blood sugar 251-300: 6 units Blood sugar 301-350: 8 units Blood sugar 351-400: 10 units Blood sugar greater than 400: call PCP Prov: OMAR SCALES MD, RESIDENT 02/23/23 Clopidogrel Bisulfate (Clopidogrel) 75 Mg Tablet 75 MG PO DAILY for 30 Days, #30 TAB Prov: OMAR SCALES MD, RESIDENT 02/23/23 Insulin Detemir (Levemir Flexpen) 100 Unit/Ml (3 Ml) Insuln.pen 25 UNITS SC BID WITH MEALS for 30 Days, #100 UNITS Prov: OMAR SCALES MD, RESIDENT 02/23/23 Copy Copies To 1: YUNI RUGGIERO KATHRYN M MD Feb 20, 2023 19:33
[2023-02-20 19:38] LABS: BASOPHILS # (AUTO) 0.1 10^3/uL (0.0-0.1); BASOPHILS % (AUTO) 1 % (0-10); EOSINOPHILS # (AUTO) 0.3 10^3/uL (0.0-0.3); EOSINOPHILS % (AUTO) 3 % (0-10); HEMATOCRIT 50 % (40-54); HEMOGLOBIN 16.5 g/dL (13.3-17.7); LYMPHOCYTES # (AUTO) 3.1 10^3/uL (1.0-4.0); LYMPHOCYTES % (AUTO) 31 % (12-44); MEAN CORPUSCULAR HEMOGLOBIN 31 pg (25-34); MEAN CORPUSCULAR HGB CONC 33 g/dL (32-36); MEAN CORPUSCULAR VOLUME 94 fL (80-99); MEAN PLATELET VOLUME 10.6 fL (9.0-12.2); MONOCYTES # (AUTO) 1.1 10^3/uL (0.0-1.0); MONOCYTES % (AUTO) 11 % (0-12); NEUTROPHILS # (AUTO) 5.3 10^3/uL (1.8-7.8); NEUTROPHILS % (AUTO) 53 % (42-75); PLATELET COUNT 198 10^3/uL (130-400)
[2023-02-20 19:42] LABS: CHLORIDE 104 MMOL/L (98-107); POTASSIUM 4.5 MMOL/L (3.6-5.0); SODIUM 137 MMOL/L (135-145)
[2023-02-20 19:43] LABS: CALCIUM 9.2 MG/DL (8.5-10.1); INR 0.9 (0.8-1.4); PROTHROMBIN TIME PATIENT 12.9 SEC (12.2-14.7)
[2023-02-20 19:44] LABS: GLUCOSE 222 MG/DL (70-105); TOTAL PROTEIN 7.5 GM/DL (6.4-8.2)
[2023-02-20 19:45] LABS: CARBON DIOXIDE 20 MMOL/L (21-32)
--- NOTE | 2023-02-20 19:45 | Diagnostic Imaging Report ---
INDICATION: 77-year-old male with chest pain, swelling and shortness of breath. COMPARISON: 08/30/2019. FINDINGS: Single view chest shows normal heart, pleura and diaphragms. No consolidation is seen. There is no effusion or pneumothorax. Film is underpenetrated. Soft tissues and bony thorax are grossly unremarkable. IMPRESSION: No acute cardiopulmonary change. Dictated by: Dictated on workstation # [id number]
[2023-02-20 19:46] LABS: BILIRUBIN,TOTAL 0.3 MG/DL (0.1-1.0)
[2023-02-20 19:47] LABS: ALKALINE PHOSPHATASE 89 U/L (40-136); CREATININE SERUM 1.47 MG/DL (0.60-1.30); GFR ESTIMATED 49
[2023-02-20 19:49] LABS: BUN/CREATININE RATIO 18
[2023-02-20 19:50] LABS: ALANINE AMINOTRANSFERASE 48 U/L (0-55); MAGNESIUM 2.4 MG/DL (1.6-2.4)
[2023-02-20] MEDS ORDERED: ENOXAPARIN 100 MG/1 ML SYRINGE SC ONE (22:45)
--- NOTE | 2023-02-20 23:24 | History & Physical-Hospitalist ---
OMAR LEVY MD, RESIDENT 02/20/23 2324: History of Present Illness HPI/Chief Complaint CC: Chest pain Patient is a 77-year-old male with a past medical history of type 2 diabetes, cardiac stent placement x2 3 to 4 years ago presenting with chest pain. He states he was in his usual state of health, had Thanksgiving lunch today and felt well. He was watching the football game this evening and started to have sweating, shortness of breath, bilateral chest pain and throat pain that started all of a sudden. He states his pain was unrelenting despite multiple positional changes, rated 10 out of 10. He thus presented to the ED for further evaluati on. He was given aspirin and nitro on presentation with complete resolution of his pain. His initial EKGs were normal and initial troponin was negative. However recheck of troponin a couple hours later had doubled. He is thus admitted for observation for NSTEMI. Source: patient Exam Limitations: no limitations Date Seen 02/20/23 Time Seen by a Provider: 23:21 Attending Physician [place]/[facility] PCP Admitting Physician: Attending Physician: Referring Physician Date of Admission Home Medications & Allergies Home Medications Reviewed patient Home Medication Reconciliation performed by pharmacy medication reconciliations distance learning technician and/or nursing. Patients Allergies have been reviewed. Allergies Allergies Coded Allergies Penicillins (Unverified Allergy, Unknown, FROM CHILDHOOD, 05/16/19) Past Ymxwryg-Uvbhfn-Ibveje Hx Patient Social History Tobacco Use?: No Substance use?: No Alcohol Use?: No Immunizations Up To Date Date of Influenza Vaccine: Jan 09, 2019 Tetanus Booster (TDap): Less Than 5 Years Date of Pneumonia Vaccine: Mar 19, 2011 Seasonal Allergies Seasonal Allergies: Yes Current Status Primary Language: Romanian Preferred Spoken Language: Romanian Is interpretation needed?: No Past Medical History Currently Using CPAP: No Currently Using BIPAP: No Hypertension Sexually Transmitted Disease: No HIV/AIDS: No Polyps Diabetes, Insulin dep Loss of Vision: Denies Hearing Impairment: Hard of Hearing, Bilateral Hearing Aide Blood Disorders: No Adverse Reaction/Blood Tranf: No (N/A) PMHx: DMII HTN Chronic back pain SurgHx: Back surgery Family Medical History Heart Disease, CAD Over 55 Years Old Review of Systems Constitutional: No dizziness EENTM: No nose congestion Respiratory: No cough, No dyspnea on exertion; short of breath Cardiovascular: chest pain; No edema, No palpitations Gastrointestinal: No abdominal pain, No constipation, No diarrhea, No nausea, No vomiting Genitourinary: No dysuria Psychiatric/Neurological: Anxiety Physical Exam Physical Exam Vital Signs Vital Signs - First Documented 02/20/23 19:21 Temp 36.1 Pulse 94 Resp 16 B/P (MAP) 148/80 (102) Pulse Ox 96 O2 Delivery Room Air Capillary Refill : Less Than 3 Seconds Height, Weight, BMI Height: 5'10.00" Weight: 241lbs. 6.0oz. [id number]; 32.00 BMI Method: General Appearance: No Apparent Distress HEENT: Normal ENT Inspection Neck: Full Range of Motion, Normal Inspection Respiratory: Chest Non Tender, Lungs Clear, Normal Breath Sounds, No Accessory Muscle Use, No Respiratory Distress Cardiovascular: Regular Rate, Rhythm, No Edema, No Murmur Gastrointestinal: Normal Bowel Sounds, Non Tender, Soft Extremity: No Pedal Edema Results Results/Procedures Labs Laboratory Tests 02/20/23 19:25 Patient resulted labs reviewed. Imaging: Reviewed Imaging Films, Reviewed Imaging Report Imaging Chest x-ray (02/20/2023): IMPRESSION: No acute cardiopulmonary change. Assessment/Plan Admission Diagnosis 77-year-old male with past medical history of coronary artery disease and type 2 diabetes presenting with NSTEMI. Admission Status: Observation Diagnosis/Problems Diagnosis/Problems (1) NSTEMI (non-ST elevated myocardial infarction) Status: Acute Assessment & Plan: Patient presenting with chest pain resolved with aspirin and nitro. Initial EKG is negative. Initial troponin negative however repeat 0.505. Plan: Consulted cardiology, appreciate recommendations Metoprolol 25 mg daily per cardiology EKG and troponin ordered for the a.m. Monitor on telemetry Aspirin and nitro as needed for chest pain (2) Chest pain Status: Acute Assessment & Plan: See above Qualifiers: Chest pain type: unspecified Qualified Codes: R07.9 - Chest pain, unspecified (3) Diabetes mellitus, type 2 Status: Chronic Assessment & Plan: Patient has a history of type 2 diabetes. States he takes Levemir 50 units twice daily and NovoLog 18 units twice daily. He was recently started on Mounjaro which has decreased his appetite and has noticed hypoglycemic episodes at night. Plan: We will start patient's insulin regimen at 25% reduced dose given recent hypoglycemic episodes and decreased appetite. 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 Patient has psych social worker at [facility], Dr. Martin? Qualifiers: Coronary Disease-Associated Artery/Lesion type: [place] artery [place] vs. transplanted heart: [place] heart Associated angina: without angina Qualified Codes: I25.10 - Atherosclerotic heart disease of [place] coronary artery without angina pectoris Clinical Quality Measures AMI/AHF: ASA po Prior to arrival: APOLINAR Tapia DO 02/21/23 1446: History of Present Illness HPI/Chief Complaint Chief complaint: Chest pain HPI: This is a 77-year-old male clinic patient of [facility] who has a history of cardiac stent placement in 2020 with 2 stents placed here at this hospital. He began having chest pain concerning enough to come to the hospital he was admitted for cardiac restratification and monitoring for ACS. Source: patient, family Exam Limitations: no limitations Past Gjvphgh-Bfllkb-Dwzrdb Hx Patient Social History Marrital Status: Employed/Student: retired Smoking Status: Never a Smoker Past Medical History Surgeries: Coronary Stent Coronary Artery Disease, High Cholesterol, Hypertension Review of Systems Constitutional: see HPI Cardiovascular: chest pain Physical Exam Physical Exam General Appearance: No Apparent Distress, Chronically ill Eyes: Right Eye Normal Inspection, Right Eye PERRL HEENT: PERRL/EOMI, Normal ENT Inspection, Pharynx Normal, Moist Mucous Membranes Neck: Full Range of Motion, Normal Inspection, Non Tender Respiratory: Chest Non Tender, Lungs Clear, Normal Breath Sounds, No Accessory Muscle Use, No Respiratory Distress Cardiovascular: Regular Rate, Rhythm, No Edema, No Gallop, No JVD, No Murmur, Normal Peripheral Pulses Gastrointestinal: Normal Bowel Sounds, No Organomegaly, No Pulsatile Mass, Non Tender, Soft Back: Normal Inspection, No CVA Tenderness, No Vertebral Tenderness Extremity: Normal Capillary Refill, Normal Inspection, Normal Range of Motion, Non Tender, No Calf Tenderness, No Pedal Edema Neurologic/Psychiatric: Alert, Oriented x3, No Motor/Sensory Deficits, Normal Mood/Affect Skin: Normal Color, Warm/Dry Lymphatic: No Adenopathy Assessment/Plan Admission Diagnosis Assessment: NSTEMI Chest pain Previous 2 stents 3 years ago Plan: Cardiology consult Monitor closely Admission Status: Observation OMAR LEVY MD, RESIDENT Feb 20, 2023 23:24 APOLINAR STEIN DO Feb 21, 2023 14:46
[2023-02-20 23:45] VITALS: BP 119/76
[2023-02-21] VITALS (13 sets, daily range): BP systolic 94–135; BP diastolic 57–71
[2023-02-21] MEDS ORDERED: diphenhydrAMINE INJ 50 MG/ML VIAL IVP PRN (00:15)
[2023-02-21] MEDS ORDERED: CALCIUM CARBONATE 500 MG CHEW TABLET PO PRN (00:15)
[2023-02-21] MEDS ORDERED: ONDANSETRON INJECTION 4 MG/2 ML (SDV) IV PRN (00:15)
[2023-02-21] MEDS ORDERED: ACETAMINOPHEN 325 MG TABLET PO PRN (00:15)
[2023-02-21] MEDS ORDERED: NITROGLYCERIN 0.4 MG SL TABLETS BTL 25'S SL PRN (00:15)
[2023-02-21] MEDS ORDERED: LACTULOSE SYRUP 10GM/15ML 30ML UDC PO PRN (00:15)
[2023-02-21] MEDS ORDERED: ONDANSETRON 4 MG ORAL DISSOLVE TABLET PO PRN (00:15)
[2023-02-21] MEDS ORDERED: MELATONIN 3 MG TABLET PO PRN (00:15)
[2023-02-21] MEDS ORDERED: diphenhydrAMINE 25 MG TABLET PO PRN (00:15)
[2023-02-21] MEDS ORDERED: MILK OF MAGNESIA 400 MG/5 ML 30 ML UDC PO PRN (00:15)
[2023-02-21] MEDS ORDERED: ANTACID SUSPENSION 30 ML UDC PO PRN (00:15)
[2023-02-21] MEDS ORDERED: BISACODYL 10 MG SUPPOSITORY PR PRN (00:15)
[2023-02-21 05:23] LABS: HEMATOCRIT 43 % (40-54); HEMOGLOBIN 14.2 g/dL (13.3-17.7); MEAN CORPUSCULAR HEMOGLOBIN 31 pg (25-34); MEAN CORPUSCULAR HGB CONC 33 g/dL (32-36); MEAN CORPUSCULAR VOLUME 94 fL (80-99); MEAN PLATELET VOLUME 10.8 fL (9.0-12.2); PLATELET COUNT 148 10^3/uL (130-400); WHITE BLOOD COUNT 6.9 10^3/uL (4.3-11.0)
[2023-02-21 05:35] LABS: ALBUMIN 3.2 GM/DL (3.2-4.5)
[2023-02-21 05:36] LABS: POTASSIUM 4.3 MMOL/L (3.6-5.0)
[2023-02-21 05:37] LABS: CALCIUM 8.2 MG/DL (8.5-10.1)
[2023-02-21 05:38] LABS: TOTAL PROTEIN 5.7 GM/DL (6.4-8.2)
[2023-02-21 05:40] LABS: BILIRUBIN,TOTAL 0.3 MG/DL (0.1-1.0)
[2023-02-21 05:42] LABS: CREATININE SERUM 1.08 MG/DL (0.60-1.30)
[2023-02-21] MEDS: inSUlin ASPART 1 UNIT/0.01 ML (PER UNIT) SC SCH ×4 (05:52→20:59)
[2023-02-21] MEDS ORDERED: ASPIRIN enteric coated 81MG TABLET PO SCH (09:00)
[2023-02-21] MEDS: DOCUSATE SODIUM 100 MG CAPSULE PO SCH ×2 (09:23→20:51)
[2023-02-21] MEDS: SENNOSIDES 8.6 MG TABLET PO SCH ×2 (09:23→20:51)
[2023-02-21] MEDS: ASPIRIN enteric coated 81MG TABLET PO SCH (09:24)
--- NOTE | 2023-02-21 10:45 | Progress Note ---
SHELBI FORTUNE MD,RESIDENT 02/21/23 1044: Subjective HPI/CC On Admission CC: Chest pain Patient is a 77-year-old male with a past medical history of type 2 diabetes, cardiac stent placement x2 3 to 4 years ago presenting with chest pain. He states he was in his usual state of health, had Thanksgiving lunch today and felt well. He was watching the football game this evening and started to have sweating, shortness of breath, bilateral chest pain and throat pain that started all of a sudden. He states his pain was unrelenting despite multiple positional changes, rated 10 out of 10. He thus presented to the ED for further evaluation. He was given aspirin and nitro on presentation with complete resolution of his pain. His initial EKGs were normal and initial troponin was negative. However recheck of troponin a couple hours later had doubled. He is thus admitted for observation for NSTEMI. Subjective/Events-last exam Pt laying in bed comfortably this morning. Denies chest pain, palpitations, vision changes, abdominal pain, N/V. Objective Exam Vital Signs Vital Signs Date Time Temp Pulse Resp B/P (MAP) Pulse Ox O2 Delivery O2 Flow Rate FiO2 02/21/23 08:03 36.1 84 18 127/71 (89) 95 Room Air Capillary Refill : Less Than 3 Seconds General Appearance: No Apparent Distress Respiratory: Lungs Clear, Normal Breath Sounds, No Accessory Muscle Use, No Respiratory Distress Cardiovascular: Regular Rate, Rhythm Gastrointestinal: Non Tender, Soft Neurologic/Psychiatric: Alert, Oriented x3, No Motor/Sensory Deficits Skin: Warm/Dry Results/Procedures Lab Laboratory Tests 02/20/23 19:25 02/21/23 04:59 Patient resulted labs reviewed. Imaging: Reviewed Imaging Films, Reviewed Imaging Report Assessment/Plan Assessment and Plan Assess & Plan/Chief Complaint (1) NSTEMI (non-ST elevated myocardial infarction) Status: Acute Assessment & Plan: Patient presenting with chest pain resolved with aspirin and nitro. Initial EKG is negative. Initial troponin negative however repeat 0.505. Plan: Consulted cardiology, appreciate recommendations Metoprolol 25 mg daily per cardiology EKG and troponin ordered for the a.m. - EKG NSR 1st degree AV block (similar to that of 02/20, 02/21 (early AM)) - Troponin 2.827 Monitor on telemetry Aspirin and nitro as needed for chest pain (2) Chest pain Status: Acute Assessment & Plan: See above Qualifiers: Chest pain type: unspecified Qualified Codes: R07.9 - Chest pain, unspecified (3) Diabetes mellitus, type 2 Status: Chronic Assessment & Plan: Patient has a history of type 2 diabetes. States he takes Levemir 50 units twice daily and NovoLog 18 units twice daily. He was recently started on Mounjaro which has decreased his appetite and has noticed hypoglycemic episodes at night. Plan: We will start patient's insulin regimen at 25% reduced dose given recent hypoglycemic episodes and decreased appetite. 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 Patient has safety and occupational health manager at [facility], Dr. Martin? Qualifiers: Coronary Disease-Associated Artery/Lesion type: [place] artery [place] vs. transplanted heart: [place] heart Associated angina: without angina Qualified Codes: I25.10 - Atherosclerotic heart disease of [place] coronary artery without angina pectoris Clinical Quality Measures AMI/AHF: ASA po Prior to arrival: No APOLINAR STEIN DO 02/21/23 1513: Subjective HPI/CC On Admission Date Seen by Provider: Feb 21, 2023 Time Seen by Provider: 09:00 Subjective/Events-last exam Patient denies any chest pain Elevated troponin will require cardiology to restratify We will restart home meds Objective Exam General Appearance: No Apparent Distress, WD/WN, Chronically ill Respiratory: Lungs Clear, Normal Breath Sounds Cardiovascular: Regular Rate, Rhythm Assessment/Plan Assessment and Plan Assess & Plan/Chief Complaint NSTEMI management Home meds restarted SHELBI FORTUNE MD,RESIDENT Feb 21, 2023 10:44 APOLINAR STEIN DO Feb 21, 2023 15:13
--- NOTE | 2023-02-21 11:23 | History & Physicial-Cardiolgy ---
HPI-Cardiology Cardiology Consultation: Date of Consultation 02/21/23 Date of Admission 02/20/2023 Attending Physician Yuni Morrison DO Admitting Physician Admitting Physician: Suly Stein DO Attending Physician: Suly Stein DO Consulting Physician ANITA DELGADO MD HPI: Time Seen by a Provider: 11:18 Chief Complaint: Patient presented complaining of retrosternal chest pain that started at last evening and patient was watching TV. Patient presented to the ER and received aspirin and nitroglycerin which did relieve his pain. Patient is presently pain-free. Patient has a history of CAD and stent insertion 3 years See chief complaint Review of Systems-Cardiology Review of Systems Constitutional: no symptoms reported Eyes: no symptoms reported Ears/Nose/Throat: no symptoms reported Respiratory: no symptoms reported Cardiovascular: chest pain Gastrointestinal: no symptoms reported Genitourinary: no symptoms reported Musculoskeletal: no symptoms reported Skin: no symptoms reported Psychiatric/Neurological: no symptoms reported Hematologic: no symptoms reported All Other Systems Reviewed Negative Unless Noted: Yes KBK-Vbvlut-Hqlvys Hx Patient Social History Smoking Status: Never a Smoker 2nd Hand Smoke Exposure: No Alcohol Use?: No Pt feels they are or have been: No Immunizations Up To Date Date of Pneumonia Vaccine: Mar 19, 2011 Date of Influenza Vaccine: Feb 18, 2023 Past Medical History PMH As described under Assessment. Allergies and Home Medications Allergies Coded Allergies: Penicillins (Unverified Allergy, Unknown, FROM CHILDHOOD, 05/16/19) Patient Home Medication List Home Medication List Reviewed: Yes Aspirin (Aspirin EC) 81 Mg Tablet.dr, 81 MG PO DAILY Prescribed by: SULY STEIN on 09/02/19 1119 Atorvastatin Calcium (Lipitor) 40 Mg Tablet, 40 MG PO HS Prescribed by: SULY STEIN on 09/02/19 1119 Cholecalciferol (Vitamin D3) (Vitamin D3) 50 Mcg Tablet, 50 MCG PO DAILY, (Reported) Entered as Reported by: YUNI KHAN on 09/01/19 0908 Fluticasone Propionate (Flonase Allergy Relief) 9.9 Ml [place].susp, 1 SPRAY NSEACH DAILY PRN for CONGESTION, (Reported) Entered as Reported by: DOMINICK OBRIEN on 08/31/19 1006 Glipizide (Glipizide) 10 Mg Tablet, 10 MG PO DAILY, (Reported) Entered as Reported by: MANDEEP PARIKH on 06/06/15 1402 Insulin Aspart (Novolog Flexpen) 300 Units/3 Ml Solution, 20 UNITS SQ BID WITH MEALS, (Reported) Entered as Reported by: DOMINICK OBRIEN on 08/31/19 1006 Insulin Determir (Levemir) 1,000 Units/10 Ml Soln, 70 UNITS SQ BID, (Reported) Entered as Reported by: MANDEEP PARIKH on 06/06/15 1402 Metoprolol Succinate (Metoprolol Succinate) 100 Mg Tab.er.24h, 100 MG PO DAILY Prescribed by: SULY STEIN on 09/02/19 1119 Multivitamin (Multi-Vitamin Daily) 1 Each Tablet, 1 EACH PO DAILY, (Reported) Entered as Reported by: MANDEEP PARIKH on 01/23/19 1056 Pioglitazone HCl (Pioglitazone HCl) 30 Mg Tablet, 30 MG PO DAILY, (Reported) Entered as Reported by: MANDEEP PARIKH on 01/23/19 1056 Sacubitril/Valsartan (Entresto 49 mg-51 mg Tablet) 1 Each Tablet, 1 TAB PO BID Prescribed by: SULY STEIN on 09/02/19 1119 Testosterone Cypionate (Testosterone Cypionate) 100 Mg/1 Ml Vial, 100 MG IM MONTHLY, (Reported) Entered as Reported by: MANDEEP PARIKH on 01/23/19 1056 Ticagrelor (Brilinta) 90 Mg Tablet, 90 MG PO BID Prescribed by: SULY STEIN on 09/02/19 1119 Physical Exam-Cardiology Physical Exam Vital Signs/I&O 02/20/23 02/20/23 02/20/23 02/21/23 23:42 23:45 23:58 00:00 Temp 36.1 Pulse 84 75 77 74 Resp 16 12 B/P (MAP) 97/67 119/76 (90) 133/66 (88) Pulse Ox 95 96 96 O2 Delivery Room Air Room Air Room Air 02/21/23 02/21/23 02/21/23 02/21/23 00:15 00:21 00:30 00:35 Pulse 75 76 80 Resp 8 15 B/P (MAP) 110/62 (78) 96/59 (71) Pulse Ox 95 93 96 O2 Delivery Room Air Room Air Room Air 02/21/23 02/21/23 02/21/23 02/21/23 00:45 01:00 02:00 03:00 Pulse 80 76 78 80 Resp 12 12 12 13 B/P (MAP) 116/57 (76) 94/65 (75) 107/70 (82) 110/63 (79) Pulse Ox 97 96 91 91 O2 Delivery Room Air Room Air Room Air Room Air 02/21/23 02/21/23 02/21/23 02/21/23 04:00 05:00 07:00 08:00 Pulse 79 81 79 Resp 13 20 B/P (MAP) 108/70 (83) 125/70 (88) Pulse Ox 90 97 O2 Delivery Room Air Room Air Room Air 02/21/23 08:03 Temp 36.1 Pulse 84 Resp 18 B/P (MAP) 127/71 (89) Pulse Ox 95 O2 Delivery Room Air 02/20/23 23:59 Intake Total 1000 ml Balance 1000 ml Capillary Refill : Less Than 3 Seconds Constitutional: appears stated age, AAO x 3 HEENT: PERRL Neck: non-tender, supple Respiratory: chest expansion is symmetric, lungs clear to auscultation Cardiovascular: regular rate-rhythm, S1 and S2 Gastrointestinal: soft, round Rectal: deferred Extremities: normal range of motion Neurologic/Psychiatric: no motor/sensory deficits Skin: normal color Lymphatic: no adenopathy Data Review Labs Laboratory Tests 02/20/23 19:25: White Blood Count 10.0, Red Blood Count 5.27, Hemoglobin 16.5, Hematocrit 50, Mean Corpuscular Volume 94, Mean Corpuscular Hemoglobin 31, Mean Corpuscular Hemoglobin Concent 33, Red Cell Distribution Width 13.2, Platelet Count 198, Mean Platelet Volume 10.6, Immature Granulocyte % (Auto) 1, Neutrophils (%) (Auto) 53, Lymphocytes (%) (Auto) 31, Monocytes (%) (Auto) 11, Eosinophils (%) (Auto) 3, Basophils (%) (Auto) 1, Neutrophils # (Auto) 5.3, Lymphocytes # (Auto) 3.1, Monocytes # (Auto) 1.1H, Eosinophils # (Auto) 0.3, Basophils # (Auto) 0.1, Immature Granulocyte # (Auto) 0.1, Prothrombin Time 12.9, INR Comment 0.9, Activated Partial Thromboplast Time 29, Sodium Level 137, Potassium Level 4.5, Chloride Level 104, Carbon Dioxide Level 20L, Anion Gap 13, Blood Urea Nitrogen 27H, Creatinine 1.47H, Estimat Glomerular Filtration Rate 49, BUN/Creatinine Ratio 18, Glucose Level 222H, Calcium Level 9.2, Corrected Calcium 9.2, M agnesium Level 2.4, Total Bilirubin 0.3, Aspartate Amino Transf (AST/SGOT) 63H, Alanine Aminotransferase (ALT/SGPT) 48, Alkaline Phosphatase 89, Myoglobin 47.3, Troponin I < 0.028, Total Protein 7.5, Albumin 4.0 02/20/23 21:50: Troponin I 0.505*H 02/20/23 23:56: Glucometer 222H 02/21/23 04:59: White Blood Count 6.9, Red Blood Count 4.59, Hemoglobin 14.2, Hematocrit 43, Mean Corpuscular Volume 94, Mean Corpuscular Hemoglobin 31, Mean Corpuscular Hemoglobin Concent 33, Red Cell Distribution Width 13.3, Platelet Count 148, Mean Platelet Volume 10.8, Sodium Level 138, Potassium Level 4.3, Chloride Level 107, Carbon Dioxide Level 22, Anion Gap 9, Blood Urea Nitrogen 24H, Creatinine 1.08, Estimat Glomerular Filtration Rate 71, BUN/Creatinine Ratio 22, Glucose Level 188H, Calcium Level 8.2L, Corrected Calcium 8.8, Total Bilirubin 0.3, Aspartate Amino Transf (AST/SGOT) 50H, Alanine Aminotransferase (ALT/SGPT) 43, Alkaline Phosphatase 68, Troponin I 2.827*H, Total Protein 5.7L, Albumin 3.2 02/21/23 11:01: ECG Impression ECG Initial ECG Impression Date: Feb 20, 2023 EKG : Rhythm: Normal Sinus ECG Impression: Normal A/P-Cardiology Assessment/Admission Diagnosis Chest pain. Non-STEMI. CAD Admission Status: Inpatient Order (span 2 midnights) Reason for Inpatient Admission: Acute non-STEMI Plan Note continue Lovenox, aspirin, metoprolol, statin. We will plan for coronary angiography at possible PCI tomorrow Clinical Quality Measures AMI/AHF: ASA po Prior to arrival: ANITA Molina MD Feb 21, 2023 11:22
[2023-02-21] MEDS: ENOXAPARIN 100 MG/1 ML SYRINGE SC SCH ×2 (11:29→22:20)
[2023-02-21 11:45] LABS: HEMATOCRIT 46 % (40-54); HEMOGLOBIN 15.3 g/dL (13.3-17.7); MEAN CORPUSCULAR HEMOGLOBIN 31 pg (25-34); MEAN CORPUSCULAR HGB CONC 33 g/dL (32-36); MEAN CORPUSCULAR VOLUME 94 fL (80-99); MEAN PLATELET VOLUME 10.8 fL (9.0-12.2); PLATELET COUNT 144 10^3/uL (130-400); WHITE BLOOD COUNT 6.5 10^3/uL (4.3-11.0)
[2023-02-21 11:49] LABS: POTASSIUM 4.5 MMOL/L (3.6-5.0)
[2023-02-21 11:50] LABS: CALCIUM 8.4 MG/DL (8.5-10.1)
[2023-02-21 11:54] LABS: CREATININE SERUM 0.97 MG/DL (0.60-1.30)
[2023-02-21 12:57] LABS: INR 1.1 (0.8-1.4)
[2023-02-21] MEDS: NS IV 1000 ML 1,000 ML IV SCH (13:36)
[2023-02-21] MEDS ORDERED: EMPA25TA PO (14:21)
[2023-02-21] MEDS ORDERED: GBPN600T PO (14:21)
[2023-02-21] MEDS ORDERED: TIRZ5PEN SQ (14:22)
[2023-02-21] MEDS ORDERED: EZET10TA49 PO (14:22)
[2023-02-21] MEDS ORDERED: UBID100C44 PO (14:22)
[2023-02-22] VITALS (27 sets, daily range): BP systolic 115–185; BP diastolic 56–99
[2023-02-22] MEDS: NS IV 1000 ML 1,000 ML IV SCH ×4 (01:10→23:30)
[2023-02-22 05:12] LABS: HEMATOCRIT 46 % (40-54); HEMOGLOBIN 15.2 g/dL (13.3-17.7); MEAN CORPUSCULAR HEMOGLOBIN 31 pg (25-34); MEAN CORPUSCULAR HGB CONC 33 g/dL (32-36); MEAN CORPUSCULAR VOLUME 94 fL (80-99); MEAN PLATELET VOLUME 10.6 fL (9.0-12.2); PLATELET COUNT 143 10^3/uL (130-400); WHITE BLOOD COUNT 5.9 10^3/uL (4.3-11.0)
[2023-02-22 05:22] LABS: ALBUMIN 3.4 GM/DL (3.2-4.5)
[2023-02-22 05:23] LABS: POTASSIUM 4.4 MMOL/L (3.6-5.0)
[2023-02-22 05:24] LABS: CALCIUM 8.5 MG/DL (8.5-10.1)
[2023-02-22 05:25] LABS: TOTAL PROTEIN 6.1 GM/DL (6.4-8.2)
[2023-02-22 05:27] LABS: BILIRUBIN,TOTAL 0.4 MG/DL (0.1-1.0)
[2023-02-22] MEDS: inSUlin ASPART 1 UNIT/0.01 ML (PER UNIT) SC SCH ×4 (05:27→21:00)
[2023-02-22 05:29] LABS: CREATININE SERUM 0.97 MG/DL (0.60-1.30)
[2023-02-22] MEDS ORDERED: HEParin (CATH LAB) 2,000 ML IV ONE (06:38)
[2023-02-22] MEDS ORDERED: LIDOCAINE 1% INJ 20 ML VIAL ONE (06:38)
[2023-02-22] MEDS ORDERED: inSUlin ASPART 1 UNIT/0.01 ML (PER UNIT) SC SCH (07:00)
[2023-02-22] MEDS: DOCUSATE SODIUM 100 MG CAPSULE PO SCH ×2 (07:33→21:00)
[2023-02-22] MEDS: SENNOSIDES 8.6 MG TABLET PO SCH ×2 (07:33→21:00)
[2023-02-22] MEDS: ASPIRIN enteric coated 81MG TABLET PO SCH (07:48)
--- NOTE | 2023-02-22 08:05 | Progress Note ---
Subjective HPI/CC On Admission Date Seen by Provider: Feb 22, 2023 Time Seen by Provider: 08:01 Chief complaint: Chest pain HPI: This is a 77-year-old male clinic patient of [facility] who has a history of cardiac stent placement in 2019 with 2 stents placed here at this hospital. He began having chest pain concerning enough to come to the hospital he was admitted for cardiac restratification and monitoring for ACS. Subjective/Events-last exam Patient is continuing to do well this morning. States he has been able to walk around, is having regular bowel movements. Appetite has been good. He is cu rrently n.p.o. for cardiac cath later this morning. He otherwise has no concerns today. Denying any chest pain since presenting to the ED Review of Systems HEENT: No Head Aches Pulmonary: No Dyspnea, No Cough Cardiovascular: No: Chest Pain, Palpitations, Edema Gastrointestinal: No: Nausea, Vomiting, Diarrhea, Constipation Genitourinary: No Dysuria Neurological: No: Weakness Objective Exam Vital Signs Vital Signs Date Time Temp Pulse Resp B/P (MAP) Pulse Ox O2 Delivery O2 Flow Rate FiO2 02/22/23 07:49 36.1 87 18 150/81 (104) 96 Room Air 02/22/23 02:52 30.00 02/21/23 23:56 21 Capillary Refill : Less Than 3 Seconds General Appearance: No Apparent Distress HEENT: Normal ENT Inspection Neck: Full Range of Motion, Normal Inspection Respiratory: Chest Non Tender, Lungs Clear, Normal Breath Sounds, No Accessory Muscle Use, No Respiratory Distress Cardiovascular: Regular Rate, Rhythm, No Edema, No Murmur Gastrointestinal: Normal Bowel Sounds, Non Tender, Soft Extremity: No Pedal Edema Neurologic/Psychiatric: Alert, Oriented x3 Skin: Normal Color, Warm/Dry Results/Procedures Lab Laboratory Tests 02/21/23 11:01 02/22/23 04:55 Patient resulted labs reviewed. Imaging: Reviewed Imaging Films, Reviewed Imaging Report Assessment/Plan Assessment and Plan Assess & Plan/Chief Complaint 77-year-old male presenting with NSTEMI. Diagnosis/Problems Diagnosis/Problems (1) NSTEMI (non-ST elevated myocardial infarction) Status: Acute Assessment & Plan: Patient presenting with chest pain resolved with aspirin and nitro. Initial EKG is negative. Initial troponin negative however repeat 0.505. Plan: Consulted cardiology, appreciate recommendations Metoprolol 25 mg daily per cardiology Monitor on telemetry Daily aspirin Nitro as needed for chest pain Plan for cardiac cath today (2) Chest pain Status: Resolved Assessment & Plan: See above Qualifiers: Qualified Codes: R07.9 - Chest pain, unspecified Resolution Date/Time: 02/22/23 @ 08:02 (3) Diabetes mellitus, type 2 Status: Chronic Assessment & Plan: Patient has a history of type 2 diabetes. States he takes Levemir 50 units twice daily and NovoLog 18 units twice daily. He was recently started on Mounjaro which has decreased his appetite and has noticed hypoglycemic episodes at night. Plan: Holding insulin as patient has not received any doses and his sugars have been well controlled. He is n.p.o. 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 Martin? Qualifiers: Qualified Codes: I25.10 - Atherosclerotic heart disease of [place] coronary artery without angina pectoris Clinical Quality Measures AMI/AHF: ASA po Prior to arrival: OMAR Gardner MD, RESIDENT Feb 22, 2023 08:05
[2023-02-22] MEDS ORDERED: LIDOCAINE 2% INJ 20 ML VIAL ONE (08:07)
--- NOTE | 2023-02-22 08:12 | Progress Note ---
OMAR LEVY MD, RESIDENT 02/22/23 0811: Subjective Subjective/Events-last exam Patient is continuing to do well this morning. States he has been able to walk around, is having regular bowel movements. Appetite has been good. He is currently n.p.o. for cardiac cath later this morning. He otherwise has no concerns today. Denying any chest pain since presenting to the ED Review of Systems General: No Fatigue HEENT: No Head Aches Pulmonary: No Dyspnea, No Cough Cardiovascular: No: Chest Pain, Palpitations, Edema Gastrointestinal: No: Nausea, Vomiting, Diarrhea, Constipation Genitourinary: No Dysuria Neurological: No: Weakness Objective Exam Last Set of Vital Signs Vital Signs Date Time Temp Pulse Resp B/P (MAP) Pulse Ox O2 Delivery O2 Flow Rate FiO2 02/22/23 07:49 36.1 87 18 150/81 (104) 96 Room Air 02/22/23 02:52 30.00 02/21/23 23:56 21 Capillary Refill : Less Than 3 Seconds I&O Intake and Output 02/21/23 23:59 Intake Total 750 ml Output Total 3150 ml Balance -2400 ml Intake Oral 750 ml Output Urine Total 3150 ml Daily Weight Change No General: Alert, Oriented X3 HEENT: Atraumatic Neck: Supple Lungs: Clear to Auscultation, Normal Air Movement Heart: Regular Rate, No Murmurs Abdomen: Normal Bowel Sounds, No Tenderness Extremities: No Edema Neuro: Normal Speech Psych/Mental Status: Mental Status NL Results/Procedures Lab Laboratory Tests 02/21/23 11:01: White Blood Count 6.5, Red Blood Count 4.91, Hemoglobin 15.3, Hematocrit 46, Mean Corpuscular Volume 94, Mean Corpuscular Hemoglobin 31, Mean Corpuscular Hemoglobin Concent 33, Red Cell Distribution Width 13.2, Platelet Count 144, Mean Platelet Volume 10.8, Sodium Level 136, Potassium Level 4.5, Chloride Level 107, Carbon Dioxide Level 21, Anion Gap 8, Blood Urea Nitrogen 20H, Creatinine 0.97, Estimat Glomerular Filtration Rate 81, BUN/Creatinine Ratio 21, Glucose Level 158H, Calcium Level 8.4L, Troponin I 2.211*H 02/21/23 11:23: Glucometer 138H 02/21/23 12:22: Prothrombin Time 15.0H, INR Comment 1.1, Activated Partial Thromboplast Time 38H 02/21/23 13:30: SARS-CoV-2 RNA (RT-PCR) Not Detected 02/21/23 16:19: Glucometer 243H 02/21/23 20:56: Glucometer 193H 02/22/23 04:55: White Blood Count 5.9, Red Blood Count 4.92, Hemoglobin 15.2, Hematocrit 46, Mean Corpuscular Volume 94, Mean Corpuscular Hemoglobin 31, Mean Corpuscular Hemoglobin Concent 33, Red Cell Distribution Width 13.3, Platelet Count 143, Mean Platelet Volume 10.6, Sodium Level 139, Potassium Level 4.4, Chloride Level 108H, Carbon Dioxide Level 19L, Anion Gap 12, Blood Urea Nitrogen 19H, Creatinine 0.97, Estimat Glomerular Filtration Rate 81, BUN/Creatinine Ratio 20, Glucose Level 144H, Calcium Level 8.5, Corrected Calcium 9.0, Total Bilirubin 0.4, Aspartate Amino Transf (AST/SGOT) 28, Alanine Aminotransferase (ALT/SGPT) 28, Alkaline Phosphatase 69, Total Protein 6.1L, Albumin 3.4 Assessment/Plan Assessment/Plan (1) NSTEMI (non-ST elevated myocardial infarction) Status: Acute Assessment & Plan: Patient presenting with chest pain resolved with aspirin and nitro. Initial EKG is negative. Initial troponin negative however repeat 0.505. Plan: Consulted cardiology, appreciate recommendations Metoprolol 25 mg daily per cardiology Monitor on telemetry Daily aspirin Nitro as needed for chest pain Plan for cardiac cath today (2) Chest pain Status: Resolved Assessment & Plan: See above Qualifiers: (3) Diabetes mellitus, type 2 Status: Chronic Assessment & Plan: Patient has a history of type 2 diabetes. States he takes Levemir 50 units twice daily and NovoLog 18 units twice daily. He was recently started on Mounjaro which has decreased his appetite and has noticed hypoglycemic episodes at night. Plan: Holding insulin as patient has not received any doses and his sugars have been well controlled. He is n.p.o. 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 Martin? Qualifiers: Qualified Codes: I25.10 - Atherosclerotic heart disease of [place] coronary artery without angina pectoris Clinical Quality Measures AMI/AHF: ASA po Prior to arrival: No GEM RAMOS MD 02/22/23 1331: Supervisory-Addendum Brief Supervisory Addendum I personally performed the castrejon portions of the visit, discussed case with resident and concur with resident documentation of history, physical exam, assessment and treatment plan unless otherwise noted. NSTEMI: stent placed during Cath, will monitor ON and plan on d/c tomorrow OMAR LEVY MD, RESIDENT Feb 22, 2023 08:11 GEM RAMOS MD Feb 22, 2023 13:31
[2023-02-22] MEDS ORDERED: fentaNYL INJECTION 100 MCG/2 ML VIAL ONE (08:13)
[2023-02-22] MEDS ORDERED: MIDAZOLAM INJ 5 MG/5 ML VIAL ONE (08:14)
[2023-02-22] MEDS ORDERED: NITRO DRIP 25000 MCG/D5W 250 ML IV ONE (08:14)
[2023-02-22] MEDS ORDERED: VERAPAMIL 5 MG/2 ML (CALAN) VIAL IV ONE (08:14)
[2023-02-22] MEDS ORDERED: HEParin 1000 UNIT/ML (10ML VIAL) FOR BOLUS ONE (08:14)
[2023-02-22] MEDS ORDERED: NON-FORMULARY MEDICATION 1 EA EA (Sacubitril/Valsartan (Entresto 49 mg-51 mg Tablet) 1 TAB PO SCH (09:00)
[2023-02-22] MEDS ORDERED: inSUlin DETERMIR 1 UNIT/0.01 ML (CHARGE PER UNIT) SQ SCH (09:00)
[2023-02-22] MEDS ORDERED: NS IV 1000 ML 1,000 ML ONE (09:13)
[2023-02-22] MEDS ORDERED: CLOPIDOGREL 300 MG TABLET PO ONE (10:30)
[2023-02-22] MEDS ORDERED: meTOprolol INJECTION 5 MG/5 ML VIAL ONE (10:30)
[2023-02-22] MEDS: ENOXAPARIN 100 MG/1 ML SYRINGE SC SCH ×2 (11:00→23:35)
--- NOTE | 2023-02-22 11:29 | Cardiac Cath Report ---
Cardiac Cath Report Physician (s)/Popcorn Vendor (s) Physician ANITA DELGADO MD Pre-Procedure Diagnosis Pre-Procedure Diagnosis: Non-STEMI Post-Procedure Note Procedure Start Date: Feb 22, 2023 Procedure Start Time: 11:24 Name of Procedure: Left heart catheterization, selective coronary angiography, left ventriculography, PCI of right coronary artery with stent insertion Findings/Procedure Note Procedure details: 77-year-old male who was brought to the [facility] because of acute non-STEMI. Informed consent was obtained. All risk and complications were explained to the patient in detail. The patient was draped prepped and cleaned in the usual sterile fashion. After local anesthesia with lidocaine the right radial artery was cannulated with 6 Serbian. Over the wire a pigtail catheter was inserted into the left ventricle and left ventricular angiogram was performed in the CONCEPCION view. The pigtail catheter was exchanged for a JL 3.5 catheter which was positioned in the left coronary artery ostium and coronary angiogram of the left coronary artery was performed in multiple views. Then the left coronary catheter was exchanged for the JR4 catheter and selective coronary angiography of RCA was performed in 2 views. Findings: Left main: Patent no significant stenosis. LAD diffuse mild LAD stenosis with evidence of previously inserted stent without significant restenosis. Heavy calcifications noted. No significant stenosis of the LAD or its branches noted. Left circumflex artery has mild diffuse disease without any significant stenosis. Right coronary artery is severely calcified artery with evidence of previously inserted stent. There is significant stenosis in the mid and distal portion of RCA, approximately 80%. Left ventricle is normal in size and contractility, no significant wall motion abnormalities. Recommendations PCI of RCA. Intervention details: JR4 guiding catheter was positioned in the right coronary ostium. A PT choice extra-support wire was inserted under fluoroscopic guidance advanced to the distal portion of the PDA. Over the wire 2/12 mm angioplasty balloon catheter was inserted and balloon inflation in the distal and mid portion of the artery at the site of the stenosis was performed with the 14 jo inflation. Then 2.0 balloon was withdrawn and 2.5/12 mm angioplasty balloon catheter was advanced with the help of guide liner to the site of the stenosis and angioplasty of both sites was performed with 14 jo inflation. Then balloon catheter was withdrawn and 2.5/22 mm drug-eluting Biotronik stent was inserted into the artery and with difficulties advanced to the distal lesion and was successfully deployed at 15 jo inflation. After that 2.5/22 mm drug-eluting Biotronik stent was advanced to the midportion lesion and successfully deployed in the overlapping with the first stent fashion with 16 jo inflation. Repeated angiography showed good stents deployment without any evidence of dissection or perforation with YULIA-3 flow. Patient did not have any chest pain and was hemodynamically stable. Today at angioplasty balloons wires were withdrawn. Hemostasis was achieved by hemoband application. 300 mg of Plavix and 325 mg of aspirin were given to the patient Patient was discharged from the [facility] in a stable condition Anesthesia Type: Conscious Sedation, Fetanyl, Versed Contrast Amount: 135 cc Post-Procedure Diagnosis Post-operative diagnosis: Non-STEMI. Severe coronary artery disease. Status post PCI with stent insertion (1) NSTEMI (non-ST elevated myocardial infarction) Assessment & Plan: Patient presenting with chest pain resolved with aspirin and nitro. Initial EKG is negative. Initial troponin negative however repeat 0.505. Plan: Consulted cardiology, appreciate recommendations Metoprolol 25 mg daily per cardiology Monitor on telemetry Daily aspirin Nitro as needed for chest pain Plan for cardiac cath today (2) Chest pain Assessment & Plan: See above Qualifiers: (3) Diabetes mellitus, type 2 Assessment & Plan: Patient has a history of type 2 diabetes. States he takes Levemir 50 units twice daily and NovoLog 18 units twice daily. He was recently started on Mounjaro which has decreased his appetite and has noticed hypo glycemic episodes at night. Plan: Holding insulin as patient has not received any doses and his sugars have been well controlled. He is n.p.o. currently for procedure Sliding scale insulin B If sugars are tolerating okay, can resume home regimen Qualifiers: Qualified Codes: E11.9 - Type 2 diabetes mellitus without complications; Z79.4 - jail (current) use of insulin (4) Hypertension Assessment & Plan: Continue home medications Qualifiers: Qualified Codes: I10 - Essential (primary) hypertension (5) DVT prophylaxis Assessment & Plan: Lovenox 1 mg/kg twice daily per cardiology recommendation (6) Coronary artery disease Assessment & Plan: Status post stenting 3 to 4 years ago. 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 Qualifiers: Qualified Codes: I25.10 - Atherosclerotic heart disease of [place] coronary a rtery without angina pectoris ANITA DELGADO MD Feb 22, 2023 11:29
[2023-02-22] MEDS ORDERED: ASPI-1238 PO (12:12)
[2023-02-22] MEDS ORDERED: MTP100TCR PO (12:12)
[2023-02-22] MEDS ORDERED: CYAN500T8 PO (12:12)
[2023-02-22] MEDS ORDERED: ATOR40TA70 PO (12:12)
[2023-02-22] MEDS ORDERED: TEST200V21 IM (12:12)
[2023-02-22] MEDS ORDERED: [UNRECOGNIZED DRUG - OTHER] PO (12:12)
[2023-02-22] MEDS ORDERED: SACU1TAB7 PO (12:12)
[2023-02-22] MEDS ORDERED: INSU100I88 SC (12:12)
--- NOTE | 2023-02-22 20:54 | Physician Query-Final Dx ---
AYESHA SCHERER 02/22/232053: Final Diagnosis Give Final Diagnosis Please give Final Diagnosis The medical record reflects the following clinical evidence: Clinical Indicators: Admission Labs: Cr 1.47, eGFR 49, improved to 0.97 and 81 Risk Factor(s): Admitted with NSTEMI, Had Cardiac Cath, Hx of HTN and DM Treatment: Lab monitoring, IV Fluids, Acute kidney failure, unspecified, present on admission, now resolved Other explanation of clinical findings Unable to determine (no explanation for clinical findings) Please clarify and document your clinical opinion in the progress notes and [facility] including the definitive and/or presumptive diagnosis, (suspected or probable), related to the above clinical findings. Please include clinical findings supporting your diagnosis. Ayesha Scherer, MSN, RN Clinical [employer] Safety Engineer [phone] [email or web address] GEM RAMOS MD 02/23/23 1108: Final Diagnosis Give Final Diagnosis Yes Acute kidney failure was present on admission AYESHA SCHERER Feb 22, 2023 20:54 GEM RAMOS MD Feb 23, 2023 11:08
[2023-02-22] MEDS: SACUBITRIL/VALSARTAN 24/26 MG TABLET PO SCH (21:00)
[2023-02-23] VITALS: BP 141/56
[2023-02-23 00:13] VITALS: BP 146/91
[2023-02-23 03:23] VITALS: BP 141/63
[2023-02-23] MEDS: NS IV 1000 ML 1,000 ML IV SCH ×2 (05:53→10:41)
[2023-02-23 06:24] LABS: HEMATOCRIT 48 % (40-54); HEMOGLOBIN 16.4 g/dL (13.3-17.7); MEAN CORPUSCULAR HEMOGLOBIN 31 pg (25-34); MEAN CORPUSCULAR HGB CONC 34 g/dL (32-36); MEAN CORPUSCULAR VOLUME 93 fL (80-99); MEAN PLATELET VOLUME 10.5 fL (9.0-12.2); PLATELET COUNT 164 10^3/uL (130-400); WHITE BLOOD COUNT 8.2 10^3/uL (4.3-11.0)
[2023-02-23] MEDS: inSUlin ASPART 1 UNIT/0.01 ML (PER UNIT) SC SCH (06:30)
[2023-02-23 06:47] LABS: ALBUMIN 3.6 GM/DL (3.2-4.5); POTASSIUM 4.2 MMOL/L (3.6-5.0)
[2023-02-23 06:48] LABS: CALCIUM 8.7 MG/DL (8.5-10.1)
[2023-02-23 06:49] LABS: TOTAL PROTEIN 6.5 GM/DL (6.4-8.2)
[2023-02-23 06:51] LABS: BILIRUBIN,TOTAL 0.6 MG/DL (0.1-1.0)
[2023-02-23 06:53] LABS: CREATININE SERUM 0.89 MG/DL (0.60-1.30)
[2023-02-23 08:00] VITALS: BP 143/61
[2023-02-23] MEDS ORDERED: CLOPIDOGREL 75 MG TABLET PO SCH (09:00)
[2023-02-23] MEDS: DOCUSATE SODIUM 100 MG CAPSULE PO SCH (09:02)
[2023-02-23] MEDS: SACUBITRIL/VALSARTAN 24/26 MG TABLET PO SCH (09:02)
[2023-02-23] MEDS: SENNOSIDES 8.6 MG TABLET PO SCH (09:02)
[2023-02-23] MEDS: ASPIRIN enteric coated 81MG TABLET PO SCH (09:02)
[2023-02-23] MEDS ORDERED: CLOP75TA28 PO (10:23)
[2023-02-23] MEDS ORDERED: INSU100V16 SC (10:23)
[2023-02-23] MEDS ORDERED: INSU100I88 SC (10:23)
--- NOTE | 2023-02-23 10:32 | Discharge Summary ---
OMAR LEVY MD, RESIDENT 02/23/23 1030: Discharge Summary Hospital Course Problems/Diagnosis: (1) NSTEMI (non-ST elevated myocardial infarction) Status: Acute Assessment & Plan: Patient presenting with chest pain resolved with aspirin and nitro. Initial EKG is negative. Initial troponin negative however repeat 0.505. Plan: Consulted cardiology, appreciate recommendations Monitor on telemetry Daily aspirin Status post PCI of RCA yesterday (2) Chest pain Status: Resolved Resolution Date/Time: 02/22/23 @ 08:02 Assessment & Plan: See above Qualifiers: (3) Diabetes mellitus, type 2 Status: Chronic Assessment & Plan: Patient has a history of type 2 diabetes. States he takes Levemir 50 units twice daily and NovoLog 18 units twice daily. He was recently started on Mounjaro which has decreased his appetite and has noticed hypoglycemic episodes at night. Plan: We will discharge patient home on Levemir 25 units twice daily and sliding scale 3 times daily Sliding scale insulin B If sugars are tolerating okay, can resume home regimen Qualifiers: Qualified Codes: E11.9 - Type 2 diabetes mellitus without complications; Z79.4 - skilled nursing (current) use of insulin (4) Hypertension Status: Chronic Assessment & Plan: Continue home medications Qualifiers: Qualified Codes: I10 - Essential (primary) hypertension (5) DVT prophylaxis Status: Chronic Assessment & Plan: Lovenox 1 mg/kg twice daily per cardiology recommendation (6) Coronary artery disease Status: Chronic Assessment & Plan: Status post stenting 3 to 4 years ago. 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 Martin? Qualifiers: Qualified Codes: I25.10 - Atherosclerotic heart disease of [place] coronary artery without angina pectoris (7) AZUL (acute kidney injury) Status: Resolved Resolution Date/Time: 02/23/23 @ 10:25 Hospital Course Date of Admission: Feb 21, 2023 at 15:51 Admission Diagnosis : Family Physician/Provider: Yuni Ruggiero DO Date of Discharge: 02/23/23 Discharge Diagnosis: NSTEMI Hospital Course: Patient is a 77-year-old male with a past medical history of type 2 diabetes, cardiac stent placement x2 3-4 years ago presenting with chest pain. He was watching the football game and started to have sweating, shortness of breath, bilateral chest pain and throat pain that started all of a sudden. He states his pain was unrelenting despite multiple positional changes, rated 10 out of 10. He thus presented to the ED for further evaluation. He was given aspirin and nitro on presentation with complete resolution of his pain. His initial EKGs were normal and initial troponin was negative. However recheck of troponin a couple hours later had doubled. He is thus admitted for observation for NSTEMI. During hospitalization, patient continued to have increasing troponin and thus was taken for cardiac cath on 02/22 where he had PCI of the RCA. His chest pain overall resolved and thus was discharged home on aspirin and Plavix. In addition patient did not require full dose of his insulin regimen and thus we will be sending patient home on a reduced regimen. We will have patient take Levemir 25 units twice daily and sliding scale insulin TID. We will request close follow-up with PCP. Labs and Pending Lab Test: Laboratory Tests 02/22/23 10:56: Glucometer 177H 02/22/23 15:13: Glucometer 194H 02/22/23 20:08: Glucometer 285H 02/23/23 05:50: White Blood Count 8.2, Red Blood Count 5.22, Hemoglobin 16.4, Hematocrit 48, Mean Corpuscular Volume 93, Mean Corpuscular Hemoglobin 31, Mean Corpuscular Hemoglobin Concent 34, Red Cell Distribution Width 13.2, Platelet Count 164, Mean Platelet Volume 10.5, Sodium Level 136, Potassium Level 4.2, Chloride Level 105, Carbon Dioxide Level 21, Anion Gap 10, Blood Urea Nitrogen 18, Creatinine 0.89, Estimat Glomerular Filtration Rate 89, BUN/Creatinine Ratio 20, Glucose Level 156H, Calcium Level 8.7, Corrected Calcium 9.0, Total Bilirubin 0.6, Aspartate Amino Transf (AST/SGOT) 72H, Alanine Aminotransferase (ALT/SGPT) 33, Alkaline Phosphatase 69, Total Protein 6.5, Albumin 3.6 Microbiology 02/21/23 MRSA Screen - Final, Complete MRSA not isolated Home Meds Active Novolog (Insulin Aspart) 100 Unit/Ml Susp 0-10 Unit SC ACHS 30 Days Blood sugar 60-180: 0 units Blood sugar 181-200: 2 units Blood sugar 201-250: 4 units Blood sugar 251-300: 6 units Blood sugar 301-350: 8 units Blood sugar 351-400: 10 units Blood sugar greater than 400: call PCP Clopidogrel (Clopidogrel Bisulfate) 75 Mg Tablet 75 Mg PO DAILY 30 Days Levemir Flexpen (Insulin Detemir) 100 Unit/Ml (3 Ml) Insuln.pen 25 Units SC BID WITH MEALS 30 Days Reported [Relaxium Sleep] 1 Ea PO HS PRN Aspirin EC (Aspirin) 81 Mg Tablet.dr 81 Mg PO DAILY Vitamin B-12 (Cyanocobalamin (Vitamin B-12)) 500 Mcg Tablet 500 Mcg PO 5XD Entresto 49 mg-51 mg Tablet (Sacubitril/Valsartan) 49 Mg-51 Mg Tablet 1 Ea PO BID Atorvastatin Calcium 40 Mg Tablet 40 Mg PO DAILY Metoprolol Succinate 100 Mg Tab.er.24h 100 Mg PO 1600 Testosterone Cypionate 200 Mg/Ml Vial 200 Mg IM EVERY 2 WEEKS Co Q-10 (Ubidecarenone) 100 Mg Capsule 100 Mg PO DAILY Mounjaro (Tirzepatide) 5 Mg/0.5 Ml Pen.injctr 5 Mg SQ TUES Ezetimibe 10 Mg Tablet 10 Mg PO 1600 Gabapentin 600 Mg Tablet 600 Mg PO TID Jardiance (Empagliflozin) 25 Mg Tablet 25 Mg PO DAILY Vitamin D3 (Cholecalciferol (Vitamin D3)) 50 Mcg Tablet 50 Mcg PO DAILY Novolog Flexpen (Insulin Aspart) 100 Unit/Ml (3 Ml) Solution 18 Units SQ BID WITH MEALS Multi-Vitamin Daily (Multivitamin) 1 Each Tablet 1 Each PO DAILY Assessment/Pt DC Instructions Please see electronic discharge instructions given to patient. Discharge Diet: ADA Diet Activity as Tolerated: Yes Consulations Consultations cardiology Discharge Physical Examination Allergies: Coded Allergies: Penicillins (Unverified Allergy, Unknown, FROM CHILDHOOD, 05/16/19) General Appearance: No Apparent Distress HEENT: PERRL/EOMI, Normal ENT Inspection Respiratory: Chest Non Tender, Lungs Clear, Normal Breath Sounds, No Accessory Muscle Use, No Respiratory Distress Cardiovascular: Regular Rate, Rhythm, No Edema, No Murmur Gastrointestinal: Normal Bowel Sounds, Non Tender, Soft Extremity: No Pedal Edema Skin: Normal Color, Warm/Dry Neurologic/Psychiatric: Alert, Oriented x3 Copy Copies To 1: YUNI RUGGIERO V DO Clinical Quality Measures AMI/AHF: ASA po Prior to arrival: No GEM RAMOS MD 02/23/23 1109: Discharge Summary Discharge Physical Examination Allergies: Coded Allergies: Penicillins (Unverified Allergy, Unknown, FROM CHILDHOOD, 05/16/19) Copy Copies To 1: YUNI RUGGIERO V DO Supervisory-Addendum Brief Supervisory Addendum I personally performed the castrejon portions of the visit, discussed case with resident and concur with resident documentation of history, physical exam, assessment and treatment plan unless otherwise noted. In addition: Acute Kidney Failure: Resolved prior to d/c with IVFs OMAR LEVY MD, RESIDENT Feb 23, 2023 10:30 GEM RAMOS MD Feb 23, 2023 11:09
[2023-02-23 11:00] VITALS: BP 143/78
--- NOTE | 2023-02-23 13:41 | Cardiology Progress Note ---
Subjective Date Seen by Provider: Feb 23, 2023 Time Seen by Provider: 10:00 Subjective/Events-last exam No complaints, no chest pain Exam Vital Signs Vital Signs Date Time Temp Pulse Resp B/P (MAP) Pulse Ox O2 Delivery O2 Flow Rate FiO2 02/23/23 11:00 143/78 98 Room Air 02/23/23 08:00 36.0 85 23 02/22/23 02:52 30.00 02/21/23 23:56 21 Physical Exam Alert oriented, no distress. Neck supple, no JVD. Heart S1-S2, regular rhythm, good right radial pulse Lungs clear. Abdomen soft nontender. Extremities no edema Labs Laboratory Tests Test 02/22/23 15:13 02/22/23 20:08 02/23/23 05:50 Range/Units Glucometer 194 H 285 H 70-110 MG/DL White Blood Count 8.2 4.3-11.0 10^3/uL Red Blood Count 5.22 4.30-5.52 10^6/uL Hemoglobin 16.4 13.3-17.7 g/dL Hematocrit 48 40-54 % Mean Corpuscular Volume 93 80-99 fL Mean Corpuscular Hemoglobin 31 25-34 pg Mean Corpuscular Hemoglobin Concent 34 32-36 g/dL Red Cell Distribution Width 13.2 10.0-14.5 % Platelet Count 164 130-400 10^3/uL Mean Platelet Volume 10.5 9.0-12.2 fL Sodium Level 136 135-145 MMOL/L Potassium Level 4.2 3.6-5.0 MMOL/L Chloride Level 105 98-107 MMOL/L Carbon Dioxide Level 21 21-32 MMOL/L Anion Gap 10 5-14 MMOL/L Blood Urea Nitrogen 18 7-18 MG/DL Creatinine 0.89 0.60-1.30 MG/DL Estimat Glomerular Filtration Rate 89 BUN/Creatinine Ratio 20 Glucose Level 156 H 70-105 MG/DL Calcium Level 8.7 8.5-10.1 MG/DL Corrected Calcium 9.0 8.5-10.1 MG/DL Total Bilirubin 0.6 0.1-1.0 MG/DL Aspartate Amino Transf (AST/SGOT) 72 H 5-34 U/L Alanine Aminotransferase (ALT/SGPT) 33 0-55 U/L Alkaline Phosphatase 69 40-136 U/L Total Protein 6.5 6.4-8.2 GM/DL Albumin 3.6 3.2-4.5 GM/DL A/P-Cardiology Admission Diagnosis Acute non-STEMI. Status post PCI of RCA. CAD (1) NSTEMI (non-ST elevated myocardial infarction) Status: Acute Assessment & Plan: Patient presenting with chest pain resolved with aspirin and nitro. Initial EKG is negative. Initial troponin negative however repeat 0.505. Plan: Consulted cardiology, appreciate recommendations Metoprolol 25 mg daily per cardiology Monitor on telemetry Daily aspirin Nitro as needed for chest pain Plan for cardiac cath today (2) Chest pain Status: Resolved Assessment & Plan: See above (3) Diabetes mellitus, type 2 Status: Chronic Assessment & Plan: Patient has a history of type 2 diabetes. States he takes Levemir 50 units twice daily and NovoLog 18 units twice daily. He was recently started on Mounjaro which has decreased his appetite and has noticed hypoglycemic episodes at night. Plan: Holding insulin as patient has not received any doses and his sugars have been well controlled. He is n.p.o. currently for procedure Sliding scale insulin B If sugars are tolerating okay, can resume home regimen (4) Hypertension Status: Chronic Assessment & Plan: Continue home medications (5) DVT prophylaxis Status: Chronic Assessment & Plan: Lovenox 1 mg/kg twice daily per cardiology recommendation (6) Coronary artery disease Status: Chronic Assessment & Plan: Status post stenting 3 to 4 years ago. 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 Martin? Assessment/Plan Okay to discharge home on aspirin and Plavix, continue statins, continue beta- fred. Patient needs to see his counter tender in 2 weeks Diagnosis/Problems Diagnosis/Problems (1) NSTEMI (non-ST elevated myocardial infarction) Status: Acute Assessment & Plan: Patient presenting with chest pain resolved with aspirin and nitro. Initial EKG is negative. Initial troponin negative however repeat 0.505. Plan: Consulted cardiology, appreciate recommendations Metoprolol 25 mg daily per cardiology Monitor on telemetry Daily aspirin Nitro as needed for chest pain Plan for cardiac cath today (2) Chest pain Status: Resolved Assessment & Plan: See above Resolution Date/Time: 02/22/23 @ 08:02 (3) Diabetes mellitus, type 2 Status: Chronic Assessment & Plan: Patient has a history of type 2 diabetes. States he takes Levemir 50 units twice daily and NovoLog 18 units twice daily. He was recently started on Mounjaro which has decreased his appetite and has noticed hypoglycemic episodes at night. Plan: Holding insulin as patient has not received any doses and his sugars have been well controlled. He is n.p.o. currently for procedure Sliding scale insulin B If sugars are tolerating okay, can resume home regimen (4) Hypertension Status: Chronic Assessment & Plan: Continue home medications (5) DVT prophylaxis Status: Chronic Assessment & Plan: Lovenox 1 mg/kg twice daily per cardiology recommendation (6) Coronary artery disease Status: Chronic Assessment & Plan: Status post stenting 3 to 4 years ago. 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 Martin? 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 transplanted heart: [place] heart Associated angina: without angina Qualified Codes: I25.10 - Atherosclerotic heart disease of [place] coronary artery without angina pectoris ANITA DELGADO MD Feb 23, 2023 13:41
== END 2023-02-23 11:00 | disposition home or self-care (01) | DRG 322 ==
LOC: EDUNIT# 19:16 → ER 19:20 → CSD 23:45 → OBSVTOIN 02-21 15:51
PROVIDERS: ADMIT Internal Medicine; ATTEND Family Medicine
PROC: 027034Z Dilation of Coronary Artery, One Artery with Drug-eluting Intraluminal Device, Percutaneous Approach (ICD-10-PCS; principal; 2023-02-21)
PROC: 4A023N7 Measurement of Cardiac Sampling and Pressure, Left Heart, Percutaneous Approach (ICD-10-PCS; 2023-02-21)
PROC: B2111ZZ Fluoroscopy of Multiple Coronary Arteries using Low Osmolar Contrast (ICD-10-PCS; 2023-02-21)
PROC: B2151ZZ Fluoroscopy of Left Heart using Low Osmolar Contrast (ICD-10-PCS; 2023-02-21)
DX: I21.4 Non-ST elevation (NSTEMI) myocardial infarction (principal); N17.9 Acute kidney failure, unspecified; Z79.82 Long term (current) use of aspirin; Z79.4 Long term (current) use of insulin; Z79.899 Other long term (current) drug therapy; I25.2 Old myocardial infarction; I25.10 Atherosclerotic heart disease of native coronary artery without angina pectoris; I10 Essential (primary) hypertension; G89.29 Other chronic pain; M54.9 Dorsalgia, unspecified; Z96.652 Presence of left artificial knee joint; E11.9 Type 2 diabetes mellitus without complications; Z95.5 Presence of coronary angioplasty implant and graft; Z11.52 Encounter for screening for COVID-19
CPT/HCPCS: 36415; 71045; 80048; 80053; 82947; 83036; 83735; 83874; 84484; 85025; 85027; 85610; 85730; 87081; 87636; 93005; 93041; 93458; 94660; 94760; 96360; 96372